=== PATIENT | female | born 1945 | race Caucasian/White ===

== ENCOUNTER → 2017-09-08 14:17 | Outpatient (CLI) | payer MEDICARE, OTHER, SELFPAY ==
--- NOTE | 2017-09-08 14:28 | XR_ITS ---
XR KUB CLINICAL INDICATION: ITS.REASON: CONSTIPATION ORDERING PHYSICIAN: Radha Ferro PATIENT AGE: 71 years COMPARISON: None FINDINGS: Unremarkable bowel gas pattern. No evidence of rectal fecal impaction. Degenerative changes lumbar spine. No urolithiasis. IMPRESSION: No acute finding
== END ==
PROVIDERS: PCP Nurse Practitioner Family; Visit Provider Nurse Practitioner Family
DX: K59.01 Slow transit constipation (principal)
CPT/HCPCS: 74018

== ENCOUNTER → 2018-02-24 13:41 | Outpatient (CLI) | payer MEDICARE, OTHER, SELFPAY ==
--- NOTE | 2018-02-24 13:55 | XR_ITS ---
XR hip RT 2-3V w/pelvis HISTORY: ITS.REASON: JOANNE HIP PAIN ORDERING PHYSICIAN: Radha Ferro PATIENT AGE: 72 years COMPARISON: None FINDINGS: No fracture or dislocation is evident. No significant degenerative change. No lytic or blastic change. Unremarkable soft tissues IMPRESSION: Negative hip
--- NOTE | 2018-02-24 13:55 | XR_ITS ---
XR hip LT 2-3V w/pelvis HISTORY: ITS.REASON: JOANNE HIP PAIN ORDERING PHYSICIAN: Radha Ferro PATIENT AGE: 72 years COMPARISON: None FINDINGS: No fracture or dislocation is evident. No significant degenerative change. No lytic or blastic change. Unremarkable soft tissues IMPRESSION: Negative hip
--- NOTE | 2018-02-24 13:55 | XR_ITS ---
XR shoulder RT min 2V COMPARISON: None HISTORY: Shoulder pain TECHNIQUE: 3 views right shoulder FINDINGS: There is degenerative changes AC joint with spurring severely and inferiorly. The humeral head and glenoid appear normal. There are no soft tissue calcifications. IMPRESSION: Degenerative spurring of the AC joint which could possibly predispose to mild degree of impingement syndrome
== END ==
PROVIDERS: PCP Nurse Practitioner Family; Visit Provider Nurse Practitioner Family
DX: M25.551 Pain in right hip (principal); M25.552 Pain in left hip
CPT/HCPCS: 73030; 73502

== ENCOUNTER → 2018-07-10 15:49 | Outpatient (CLI) | payer MEDICARE, OTHER, SELFPAY ==
--- NOTE | 2018-07-10 16:12 | MM_ITS ---
MM Dig screening mamm BI w/CAD ORDERING PHYSICIAN : Radha Ferro PATIENT AGE: 72 years GENDER: Female COMPARISON: May 2015, June 2016, 2016. November 2011 & 2010 digital mammograms . Also film screen mammogram September 2009 &March 2009 INDICATION: ITS.REASON: SCREENING denies female hormones. No new complaints. Previous stereotactic biopsy left breast Noncontributory family history. TECHNIQUE: Standard CC and MLO images were obtained. R2 CAD reviewed. FINDINGS: . Moderate asymmetry is again noted with more evident on the bladder tissue left retroareolar region. Long-standing pattern. RIGHT BREAST:Right breast is unchanged. Old only minimal residual fibroglandular elements retroareolar region right. LEFT BREAST:We again see dense area of tissue at the retroareolar region on left, most pronounced superior lateral to the nipple. Actually very similar finding was seen back dating back to 2008. I believe today's technique, accentuates the density here slightly when compared to a recent years studies from 2017, 2016. With however suggest a follow-up study in 6 months to better confirm stability ovaries routine follow-up thereafter Others also metallic marker seen at site of percutaneous biopsy, at area of asymmetric fibroglandular tissue again noted at superior left breast 12:00. This area unchanged. IMPRESSION: 1. LEFT BREAST: asymmetric area of tissue in the superior retroareolar region again noted. -Density at this area slightly accentuated on today's study, believe is merely due to technique. However I would suggest a 6 month follow-up to better confirm stability of this area 2. RIGHT BREAST: Stable appearance. Follow-up in one year BI-RADS Category: 3 Probably Benign Finding Short Term Follow-up RECOMMENDED FOLLOW-UP: 6M 6 MONTH FOLLOW-UP (A letter has been sent to the patient regarding results of the study.)
== END ==
PROVIDERS: PCP Nurse Practitioner Family; Visit Provider Nurse Practitioner Family
DX: Z12.31 Encounter for screening mammogram for malignant neoplasm of breast (principal)
CPT/HCPCS: 77067

== ENCOUNTER → 2018-09-26 14:03 | Outpatient (CLI) | payer MEDICARE, OTHER, SELFPAY ==
--- NOTE | 2018-09-26 14:11 | XR_ITS ---
XR hip RT 2-3V w/pelvis HISTORY: ITS.REASON: RT HIP PAIN ORDERING PHYSICIAN: Radha Ferro PATIENT AGE: 72 years COMPARISON: None FINDINGS: No fracture or dislocation is evident. There are minimal osteoarthritic changes of the right hip. No lytic or blastic change. IMPRESSION: Minimal osteoarthritis, no acute finding
--- NOTE | 2018-09-26 14:11 | XR_ITS ---
EXAM: XR lumbar spine 2-3V HISTORY: Low back pain, right hip pain ITS.REASON: RT HIP PAIN ORDERING PHYSICIAN: Radha Ferro PATIENT AGE: 72 years COMPARISON: None FINDINGS: There is multilevel degenerative disc disease which is worse at L4-L5 and L5-S1 as well as multilevel bridging osteophytes prominent in the lower thoracic spine and from L2 to L5. No fracture or dislocation. No lytic or blastic change. IMPRESSION: Degenerative disc disease with osteophytosis
== END ==
PROVIDERS: PCP Nurse Practitioner Family; Visit Provider Nurse Practitioner Family
DX: M25.551 Pain in right hip (principal)
CPT/HCPCS: 72100; 73502

== ENCOUNTER → 2018-11-09 15:14 | Outpatient (CLI) | payer MEDICARE, OTHER, SELFPAY ==
--- NOTE | 2018-11-09 15:18 | XR_ITS ---
XR knee RT 4V, XR tibia fibula RT 2V History: Arthritis and pain at the right leg for one year Technique: Right knee 4 view: Weightbearing AP, lateral and Nazario views were performed as well as oblique. Right lower leg AP lateral view RIGHT KNEE Findings reflecting degenerative changes at the right knee most evident at the lateral compartment. Mild narrowing at the lateral compartment with minor sclerosis... Developing Marginal osteophytes most evident about the lateral compartment as well.. Medial compartment maintained. No joint effusion. Patellofemoral relationships appear satisfactory. Early sharpening and marginal endplate about margin of patella. IMPRESSION: : 1. Developing Degenerative changes a right knee most evident at lateral compartment. RIGHT LOWER LEG The right tibia and fibula appear intact. Bones well mineralized. No fracture nor lesion. 2 views of the ankle included in this study unremarkable. Right knee Knee is been previously discussed above. IMPRESSION. Negative right tibia and fibula
== END ==
PROVIDERS: PCP Nurse Practitioner Family; Visit Provider Orthopaedic Surgery
DX: M79.604 Pain in right leg (principal); M25.561 Pain in right knee
CPT/HCPCS: 73564; 73590

== ENCOUNTER 2018-11-30 09:00 | Outpatient (RCR) | payer MEDICARE, OTHER, SELFPAY | END 2018-11-30 09:15 | disposition home or self-care (01) | LOC: PT 09:00 | PROVIDERS: Visit Provider Nurse Practitioner Family | DX: M25.551 Pain in right hip (principal) | CPT/HCPCS: 97010; 97014; 97110; 97140; 97163; 97164; 97760; G0283 ==

== ENCOUNTER → 2018-12-04 09:20 | Outpatient (CLI) | payer MEDICARE, OTHER, SELFPAY ==
--- NOTE | 2018-12-04 09:25 | MR_ITS ---
MR knee RT wo con HISTORY: Right knee pain ITS.REASON: RIGHT KNEE PAIN ORDERING PHYSICIAN: Radha Ferro APRN PATIENT AGE: 73 years Comparison: 11/09/2018 TECHNIQUE: Standard multiplanar multiecho sequences are performed without contrast. FINDINGS: The cruciate ligaments, collateral ligaments, patellar tendon, and quadriceps tendon are intact. Medial meniscus has an unremarkable appearance. The anterior horn of the lateral meniscus is not well delineated. There is increased T2 signal involving the posterior horn of the lateral meniscus which does appear to extend to the tibial surface on at least one view and could be due to a small meniscal tear. There is diffuse increased T2 signal involving the anterior horn lateral meniscus anteriorly and laterally with ill-definition. There is associated subcutaneous edema about the knee greater along the anterior and lateral aspect of the knee.. Increased T2 signal is also present deep to the distal aspect of the iliotibial tract and the lateral patellar retinaculum. There is some thinning of the patellar cartilage. There are mild tricompartmental osteoarthritic changes. No bone marrow edema is apparent. There is a small knee joint effusion and a small Ventura cyst. IMPRESSION: 1. Abnormal appearance of the anterior horn of the lateral meniscus which is ill-defined with increased T2 signal and could represent complex tear or maceration. Nondisplaced horizontal tear involves the posterior horn of the lateral meniscus. 2. Diffuse subcutaneous edema of the knee which is greater along the anterior lateral aspect also with some edema deep to the iliotibial tract and lateral patellar retinaculum. These findings are nonspecific and could be related to posttraumatic change, inflammation, or even infection/cellulitis. Correlation with clinical findings needed. 3. Mild tricompartmental osteoarthritis with knee joint effusion
== END ==
PROVIDERS: PCP Nurse Practitioner Family; Visit Provider Nurse Practitioner Family
DX: M25.561 Pain in right knee (principal)
CPT/HCPCS: 73721

== ENCOUNTER → 2018-12-05 10:52 | Outpatient (POV) | payer MEDICARE, OTHER, SELFPAY ==
[2018-12-05 11:04] VITALS: BP 117/62; PULSE 77; RESP 18; O2SAT 98
--- NOTE | 2018-12-18 08:30 | HMH.PMCON ---
Assessment and Plan (1) Left knee pain Status: Chronic Category: Medical Code(s): M25.562 - Pain in left knee (2) Knee osteoarthritis Status: Chronic Category: Medical Code(s): M17.10 - Unilateral primary osteoarthritis, unspecified knee - Assessment and plan all Dx Assessment and Plan for all problems:: We will schedule her for an intra-articular knee injection. I will follow-up with the patient after injection reassess her symptoms at that time. Dr. Montoya has reviewed this note and agrees with this plan of care. This note was dictated using voice recognition software and may contain errors or omissions HPI - Data of Consult Consult date: 12/05/18 Requesting Physician: Rabia Yuen APRN Primary Care Provider: Radha Ferro APRN - Consult Narrative Reason for consult: Knee pain History of present illness: Ms. Emery is a 73 year old female who presents today to discuss her left knee pain. Patient has been seen by orthopedics for it. Patient states she has had injections in the past with good relief. Patient is interested in repeating this. Patient and I had a discussion about additional imaging of the knee of her injection does not give her any relief. She rates her pain a 5 out of 10. She states it is difficult walking. She states that her pain is an aching type. CC: Rabia Yuen APRN [facility] History I have reviewed the patient's past medical history: Yes Medical History: Reports:: Anxiety, Hypertension Denies:: Seizures *Have you ever received a pneumonia vaccine?: No Other Medical History: Reports: Thyroid Disease Other Surgeries: Yes: No Previous Surgery, Sinus Surgery - *Social History Smoking Status: Never smoker Alcohol Intake: never *Occupational Status:: retired Housing: house *Travel in the last 8 weeks: None - Psychiatric History Expresses thoughts of harming self/others: None Suicide Plan Description: No Plan Pschychiatric History:: Reports:: Anxiety Family Hx:: Unable to obtain Review of Systems - Review of Systems ROS General: no recent weight change, no fever, no sleep disturbances Respiratory: no cough, no shortness of air, no recurring pulmonary infections Cardiovascular/Peripheral Vascular: No chest pain, No palpitations, no edema, no shortness of breath. Gastrointestinal: no incontinence, normal bowel movements reported Genitourinary: no incontinence Musculoskeletal: Left knee pain Psychiatric: normal mood/ affect Neurological: [denies weakness in extremities], [denies balance issues] Meds Home Medications Medication Instructions Recorded Confirmed Type clonazepam 0.5 mg tablet 0.5 mg PO BID 11/09/18 12/15/18 History gemfibrozil 600 mg tablet 600 mg PO BID 11/09/18 12/15/18 History glimepiride 2 mg tablet 2 mg PO DAILY 11/09/18 12/15/18 History lamotrigine 150 mg tablet 150 mg PO DAILY 11/09/18 12/15/18 History levothyroxine 75 mcg tablet 75 mcg PO DAILY 11/09/18 12/15/18 History metoprolol tartrate 100 mg tablet 100 mg PO BID 11/09/18 12/15/18 History potassium 99 mg tablet 99 mg PO DAILY 11/09/18 12/15/18 History venlafaxine ER 150 mg 150 mg PO DAILY 11/09/18 12/15/18 History tablet,extended release 24 hr vit C 50 mg-E 15 unit-zinc cit 4.5 2 tab PO DAILY 11/09/18 12/15/18 History mg-lutein 2.5 mg-zeaxan chew tablet Allergies Allergy/AdvReac Type Severity Reaction Status Date / Time hydromorphone [From Dilaudid] Allergy Severe DIAPHORETIC, Verified 12/15/18 11:32 NAUSEA, FEELS LIKE SHE COULD PASS OUT. azithromycin AdvReac Intermediate DEPRESSION Verified 12/15/18 11:32 Objective Vital signs: Pulse Resp BP Pulse Ox 77 18 117/62 98 12/05/18 11:04 12/05/18 11:04 12/05/18 11:04 12/05/18 11:04 Narrative: Physical Exam General: Alert and oriented x3, no acute distress, pleasant and cooperative, [on room air] Lungs: Resps E/U, Symmetrical chest expansion, Eyes: PER
== END ==
PROVIDERS: PCP Nurse Practitioner Family; Visit Provider Clinical Nurse Specialist Family Health
DX: M25.562 Pain in left knee (principal); M17.10 Unilateral primary osteoarthritis, unspecified knee
CPT/HCPCS: 99202

== ENCOUNTER → 2018-12-22 07:50 | Outpatient (CLI) | payer MEDICARE, OTHER, SELFPAY ==
--- NOTE | 2018-12-22 08:02 | MR_ITS ---
MR knee LT wo con HISTORY: Anterior left knee pain ITS.REASON: KNEE PAIN ORDERING PHYSICIAN: Rabia Yuen APRN PATIENT AGE: 73 years Comparison: None TECHNIQUE: Standard multiplanar multiecho sequences are performed without contrast. FINDINGS: The cruciate ligaments, collateral ligaments, and patellar tendon have an unremarkable appearance. There is an accessory center of ossification along superior aspect of the patella with some increase in the T2 signal at the insertion of the quadriceps tendon. No meniscal tear is evident. There is some minimal thinning of the patellar cartilage with some irregularity of the patellar cartilage posteriorly. The medial and lateral joint spaces are well-preserved with no significant degenerative change. There are minimal osteoarthritic changes of the patellofemoral joint Small amount fluid is present in the knee joint. No bone marrow edema pattern. IMPRESSION: 1. No evidence of internal derangement 2. Minimal osteoarthritic changes of the patellofemoral joint with minimal irregularity posterior patellar cartilage which may be seen with osteoarthritis or mild chondromalacia 3. Bipartite patella with some increased T2 signal involving the distal aspect of the quadriceps tendon which may be due to tendinopathy or tendinosis or partial tear of the tendon
== END ==
PROVIDERS: PCP Nurse Practitioner Family; Visit Provider Clinical Nurse Specialist Family Health
DX: M25.562 Pain in left knee (principal)
CPT/HCPCS: 73721

== ENCOUNTER → 2019-01-04 08:42 | Outpatient (CLI) | payer MEDICARE, OTHER, SELFPAY ==
--- NOTE | 2019-01-04 08:48 | XR_ITS ---
XR knee LT 4V HISTORY: ITS.REASON: 4 views weightbearing ORDERING PHYSICIAN: Sloan Muhammad MD PATIENT AGE: 73 years COMPARISON: None FINDINGS: No fracture or dislocation. No lytic or blastic change. Normal mineralization. No significant arthritic changes evident. Prominent enthesophyte is present at the superior aspect of the patella IMPRESSION: Unremarkable, no acute finding
== END ==
PROVIDERS: PCP Nurse Practitioner Family; Visit Provider Orthopaedic Surgery
DX: M25.562 Pain in left knee (principal)
CPT/HCPCS: 73564

== ENCOUNTER → 2019-01-31 13:32 | Outpatient (CLI) | payer MEDICARE, OTHER, SELFPAY ==
--- NOTE | 2019-01-31 13:35 | MM_ITS ---
MM Dig mamm DX unilat LT CAD COMPARISON: Digital mammograms with CAD 07/10/2018 INDICATION: 6 month follow-up for evaluation of interval stability asymmetric glandular tissue left breast TECHNIQUE: Standard MLO and CC views were obtained FINDINGS: Moderately dense asymmetric glandular tissue in the subareolar region stable and unchanged from the previous exam and possibly appearing somewhat less dense than the prior exam. Again is a surgical clip just deep to the asymmetric glandular tissue. There are no suspicious findings seen and there are no suspicious microcalcifications. IMPRESSION: Stable asymmetric glandular tissue recommend the patient return to annual screening mammography BI-RADS Category: 2 Benign Finding(s) RECOMMENDED FOLLOW-UP: 6M - 6 MONTH FOLLOW-UP to return to normal annual screening schedule (A letter has been sent to the patient regarding results of the study.)
== END ==
PROVIDERS: PCP Nurse Practitioner Family; Visit Provider Nurse Practitioner Family
DX: N63.42 Unspecified lump in left breast, subareolar (principal)
CPT/HCPCS: 77065

== ENCOUNTER → 2019-07-23 14:45 | Outpatient (CLI) | payer MEDICARE, OTHER, SELFPAY ==
--- NOTE | 2019-07-23 14:48 | MM_ITS ---
PROCEDURE: MM DIG SCREENING MAMM BI W/CAD CLINICAL INDICATION: 6 MOS FU TO RESUME ANNUAL SCHEDULE There is no personal or family history of breast cancer and no current complaints. This is a six-month follow-up exam to resume annual screening. There been a previous biopsy left breast for benign disease. COMPARISON: [facility] DIG MAMM-SCREEN JOANNE W/CAD from 06/16/2017 [facility] MM Dig screening mamm BI w/CAD from 07/10/2018 DIG MAMM-DX UNI-LT from 01/31/2019 TECHNIQUE: Standard CC and MLO images were obtained. R2 CAD reviewed. FINDINGS: The breasts are composed primarily of fat. Again noted is the asymmetric density subareolar region left breast basically stable unchanged from previous exams. The biopsy clip is seen just superior to this asymmetric density. Similar but less prominent glandular elements are seen in the subareolar region right breast. There is no new or suspicious lesion in either breast and no suspicious microcalcifications. IMPRESSION: Stable exam with no suspicious lesions seen BI-RAD Category: 2 Benign Finding(s) FOLLOW-UP: 1YR 1 Year Follow-up (A letter has been sent to the patient regarding results of the study.) Dictated by: Dr. Aj Lynne MD 07/25/2019 20:[address] Aj Lynne MD in [place] 07/25/2019 20:13
== END ==
PROVIDERS: PCP Nurse Practitioner Family; Visit Provider Nurse Practitioner Family
DX: Z12.31 Encounter for screening mammogram for malignant neoplasm of breast (principal)
CPT/HCPCS: 77067

== ENCOUNTER → 2019-07-30 13:33 | Outpatient (CLI) | payer MEDICARE, OTHER, SELFPAY ==
--- NOTE | 2019-07-30 13:51 | XR_ITS ---
PROCEDURE: XR CHEST 2V CLINICAL HISTORY: COUGH COMPARISON: CXR2 CHEST-AP VIEW ONLY from 12/10/2014 FINDINGS: The cardiomediastinal silhouette and pulmonary vascularity are within normal limits. The lungs are clear without infiltrates, suspicious nodules, or pleural effusions. No acute bony abnormalities. IMPRESSION: No acute findings. Dictated by: Neil Morin 07/30/2019 15:05 Electronically signed by Neil Morin in [place] 07/30/2019 15:05
[2019-07-30 14:19] LABS: Basophils # 0.1 K/mm3 (0-0.2); Basophils % 0.4 % (0.1-2.0); Eosinophils # 0.2 K/mm3 (0.0-0.4); Eosinophils % 2.2 % (0.1-12.0); Hematocrit 41.1 % (37.0-47.0); Hemoglobin 12.8 g/dL (12.2-16.2); Lymphocytes # 1.8 K/mm3 (0.7-4.5); Lymphocytes % 17.5 % (10-50); Mean Corpuscular HGB Conc 31.1 g/dL (31.8-35.4); Mean Corpuscular Hemoglobin 26.6 pg (27.0-31.2); Mean Corpuscular Volume 85.5 fl (81-99); Mean Platelet Volume 8.9 fl (7.4-10.4); Monocytes # 0.5 K/mm3 (0.1-1.0); Monocytes % 4.7 % (1.7-9.3); Neutrophils # 7.9 K/mm3 (1.8-7.8); Neutrophils % 75.2 % (37.0-80.0); Platelet Count 400 K/mm3 (142-424); Red Cell Distribution Width 14.2 % (11.5-17.5); White Blood Count 10.5 K/mm3 (4.8-10.8)
[2019-07-30 16:25] LABS: Alanine Aminotransferase 17 U/L (12-78); Albumin Level 3.9 gm/dL (3.4-5.0); Alkaline Phosphatase 156 U/L (46-116); Anion Gap 16.8 mEq/L (5-15); Aspartate Amino Transferase 16 U/L (15-37); Bilirubin,Total 0.6 mg/dL (0.2-1.0); Blood Urea Nitrogen 30 mg/dL (7-18); Calcium 9.3 mg/dL (8.5-10.1); Carbon Dioxide 25 mmol/L (21.0-32.0); Chloride 105 mmol/L (98-107); Creatinine,Serum 0.69 mg/dL (0.55-1.02); Estimated Glomerular Filt Rate 83 ml/min (>60); GFR (African American) 101 ML/MIN (>60); Globulin 3.8 gm/dl (1.3-3.2); Glucose 143 mg/dL (74-106); Potassium 3.8 mmoL/L (3.5-5.1); Sodium 143 mmol/L (136-145); Total Protein,Serum 7.7 gm/dL (6.4-8.2)
== END ==
PROVIDERS: PCP Nurse Practitioner Family; Visit Provider Nurse Practitioner Family
DX: R53.83 Other fatigue (principal); E03.9 Hypothyroidism, unspecified; J01.40 Acute pansinusitis, unspecified; R05 Cough
CPT/HCPCS: 36415; 71046; 80053; 84443; 85025

== ENCOUNTER → 2019-08-06 12:51 | Outpatient (CLI) | payer MEDICARE, OTHER, SELFPAY ==
--- NOTE | 2019-08-06 12:52 | US_ITS ---
APPROVED REPORT Exam Type: Lower Extremity Segmental Pressures Care Process Manager: Kira Gill RVT Indications Claudication: Bilaterally Risk Factors Hypertension Hyperlipidemia Diabetes Pressures/Indices Right Indices Left Indices Brachial 134.00 mmHg Brachial 135.00 mmHg Low Thigh 133.00 mmHg 0.99 Low Thigh 133.00 mmHg 0.99 Calf 141.00 mmHg 1.04 Calf 153.00 mmHg 1.13 Ankle(PT) 148.00 mmHg 1.10 Ankle(PT) 150.00 mmHg 1.11 Ankle(DP) 143.00 mmHg 1.06 Ankle(DP) 154.00 mmHg 1.14 Digit 30.00 mmHg 0.22 Digit 39.00 mmHg 0.29 Findings RT ERI:1.10 LT ERI:1.14 RT TBI:0.22 LT TBI:0.29 NORMAL PULSES BILATERAL NORMAL WAVEFROMS BILATERAL Conclusion Low bilateral TBI suggesting small vessel disease Electronically signed by : Nirav Mann MD 08/09/2019 16:00:21
--- NOTE | 2019-08-06 13:45 | CT_ITS ---
PROCEDURE: CT SINUS WO CON CLINICAL HISTORY: ACUTE PANSINUSITIS COMPARISON: SINUS CT SINUS (MAX-FACIAL W/O CONT) from 04/03/2016 TECHNIQUE: Axial images obtained with sagittal and coronal reformats. All CT scans at the facility use one or more dose reduction, viz: automated exposure control, ma/kV adjustment per patient size (including targeted exams where dose is matched to indication, i.e. head), or iterative reconstruction technique. FINDINGS: The paranasal sinuses are clear. There is a lalit bullosa right middle turbinate. The OM U is patent bilaterally. The nasal septum is in the midline. IMPRESSION: Stable small lalit bullosa right middle turbinate, no findings of acute or chronic sinusitis Dictated by: Dr. Aj Lynne MD 08/06/2019 14:[address] Aj Lynne MD in [place] 08/06/2019 14:37
== END ==
PROVIDERS: PCP Nurse Practitioner Family; Visit Provider Podiatrist
DX: R09.89 Other specified symptoms and signs involving the circulatory and respiratory systems (principal); J01.40 Acute pansinusitis, unspecified; R05 Cough
CPT/HCPCS: 70486; 93923

== ENCOUNTER → 2019-08-28 07:21 | Outpatient (CLI) | payer MEDICARE, OTHER, SELFPAY ==
--- NOTE | 2019-08-28 | CA_ITS ---
APPROVED REPORT Exam: Pharmacologic Technologist: Mary Dudley Ht: 5 ft 4 in Wt: 160 lbs BSA: 1.78 m2 HR: 64 bpm BP: 149/59 mmHg Indications: Chest pain, Shortness of Air Medical History Medications: Omeprazole,,,,, Levothyroxine,,,,, Aspirin,,,,, Metoprolol,,,,, Vitamin C,,,,, Glimepiride,,,,, Buspirone,,,,, Gemfibrozil,,,,, Venlafaxine,,,,, Lomotrigine,,,,, Stress Test Details Test: LEXISCAN HR Resting HR: 69 bpm Max Heart Rate (APMHR): 147 bpm Max HR Achieved: 88 bpm Target HR (85% APMHR): 124 bpm % of APMHR: 59 Recovery HR: 75 bpm BP Resting BP: 149.0/59.0 mmHg Max BP: 152.0/79.0 mmHg Recovery BP: 140.0/69.0 mmHg ECG Clinical Exercise duration: 04:01 min Highest Stage Achieved: Stress ECG Conclusion Resting ECG: Sinus rhythm. Lexiscan portion completed. Patient complained of nausea at peak infusion. Resolved in recovery. Symptoms: Nausea at peak infusion. Resolved in recovery. No chest pain. No shortness of breath. Arrhythmias/Ectopy: Occasional PVC ST-T Changes: Less than 1.[address] depression. Conclusion: Images to follow. Electronically signed by : Dejuan Granados, 08/29/2019 06:31:35
--- NOTE | 2019-08-28 07:22 | CA_ITS ---
APPROVED REPORT EXAM: Comprehensive 2D, Doppler, and color-flow Echocardiogram Emergency Worker: Eleanor Welch RDCS Ht: 5 ft 5 in Wt: 162lbs BSA: 1.81 BP: 140/75 mmHg Indications: Chest Pain, Shortness of Breath, Diabetes, Obesity, Hypertension/HDD 2D Dimensions LVOT 1.70 cm (M/F) 1.5-2.5 M-Mode Dimensions RVDd 1.59 cm (0.9-2.6) LVDd 5.39 cm (3.5-5.7) LVDs 3.83 cm (3.5-5.7) IVSd 0.68 cm (0.6-1.1) PWd 0.68 cm (0.6-1.1) EF (Teich) 55.20% FS 28.90% EDV (Teich) 140.70 mL ESV (Teich) 63.10 mL LV Diastology E/A Ratio 0.79 Mitral Valve MV A Velocity 87.00 (40-130 cm/s) Left Ventricle Left atrium is mildly enlarged, left ventricle is normal size, mild concentric left ventricular hypertrophy, visually estimated ejection fraction 55% with no regional wall motion abnormality, grade 1 diastolic dysfunction seen with tissue Doppler evidence of raise left atrial pressure. Right Ventricle Right atrium and right ventricular mildly enlarged with normal contractility. Aortic Valve Aortic valve is minimally thickened and fibrosed, there is no aortic stenosis or aortic insufficiency. Mitral Valve Mitral valve is grossly normal, there is mild mitral regurgitation. Tricuspid Valve Tricuspid valve is grossly normal, there is mild tricuspid regurgitation. Pulmonic Valve Pulmonic valve is poorly visualized. Great Vessels Aortic root is normal size. Pericardium No significant pericardial effusion noted. Conclusion 1. Mildly enlarged left atrium, normal left ventricular size, mild concentric left ventricular hypertrophy, visually estimated ejection fraction 55% with no regional wall motion abnormality, grade 1 diastolic dysfunction seen without tissue Doppler evidence of raise left atrial pressure. 2. Mild mitral and tricuspid regurgitation. 3. No significant pericardial effusion noted. Electronically signed by : Djeuan Granados, 08/29/2019 07:02:04
--- NOTE | 2019-08-28 07:24 | NM_ITS ---
APPROVED REPORT Exam: Nuclear Stress Test Indication: Chest pain, SOB, Palpitations, HTN, DM, High cholesterol Patient Location: Outpatient Stress Tech: Mary Dudley IN Tech:Anushka Almendarez, ARRT, RT (R)(N) Ht: 5 ft 4 in Wt: 160 lbs Bra Size: 36B HR: 64 bpm BP: 149/59 mmHg BSA: 1.78 m2 BMI: 27.4 History: Chest pain, SOB, Palpitations, HTN, DM, High cholesterol Procedure: Patient received a 0.4 mg of intravenous Lexiscan, resting heart rate 64 bpm, resting blood pressure 149/59 mmHg, with Lexiscan maximum heart rate achived was 86 bpm which is Less than 85 % of the maximum predicted heart rate and blood pressure was 121/65 mmHg. With Lexiscan, patient denied any complaint of chest pain. Electrocardiogram Resting electrocardiogram showed sinus rhythm, with Lexiscan there is less than 1.[address] segment depression noted from the baseline EKG. The EKG portion of the Lexiscan Myoview is nondiagnostic. Cardiac Stress and Resting SPECT Images: Cardiac Stress and Resting SPECT images were obtained using technetium 99m Myoview 30.7 mCi stress and 10.28 mCi at rest. Gated SPECT with analysis of segmental wall motion and calculation of the ejection fraction also done. Cardiac stress and resting SPECT images show small area of reversible ischemia involving the apex and anterolateral wall, computer derived ejection fraction is over 65% with no regional wall motion abnormality, right ventricle is normal size and contractility. Conclusion: 1. The EKG portion of the Lexiscan Myoview is nondiagnostic. 2. Scintigraphic evidence of small area reversible ischemia involving the apex and anterolateral wall, computer derived ejection fraction is over 65% with no regional wall motion abnormality, right ventricle is normal size and contractility. 3. Abnormal Lexiscan Myoview study. Electronically signed by : Dejuan Granados, 08/29/2019 06:33:46
--- NOTE | 2019-08-28 07:37 | HMH.ITSHM ---
Current Home Medications as stated by this patient Maryuri Emery or physician relations representative. []VITAMIN C VENLAFAXINE OMEPRAZOLE METOPROLOL LEVOTHYROXINE LAMOTRIGINE GLIMEPIRIDE GEMFIBROZIL BUSPIRONE ASA
== END ==
PROVIDERS: PCP Nurse Practitioner Family; Visit Provider Urology
DX: E11.9 Type 2 diabetes mellitus without complications (principal); I10 Essential (primary) hypertension; R06.00 Dyspnea, unspecified; R07.9 Chest pain, unspecified; R42 Dizziness and giddiness; Z79.84 Long term (current) use of oral hypoglycemic drugs
CPT/HCPCS: 78452; 93017; 93306; A9502; J2785

== ENCOUNTER → 2019-10-02 15:11 | Outpatient (CLI) | payer MEDICARE, OTHER, SELFPAY ==
[2019-10-02 17:03] LABS: Anion Gap 15.2 mEq/L (5-15); Blood Urea Nitrogen 22 mg/dl (7-17); Calcium 9.6 mg/dl (8.4-10.2); Carbon Dioxide 24 mmol/L (22.0-30.0); Chloride 105 mmol/L (98-107); Estimated Glomerular Filt Rate 98 ml/min (>60); GFR (African American) 119 ML/MIN (>60); Glucose 130 mg/dl (74-100); Potassium 4.2 mmoL/L (3.5-5.1); Sodium 140 mmol/L (136-145)
[2019-10-02 17:11] LABS: NT Pro Brain Natriuretic Pep. 74.7 pg/mL (0-125)
== END ==
PROVIDERS: Visit Provider Physician Assistant
DX: I11.9 Hypertensive heart disease without heart failure (principal); I25.10 Atherosclerotic heart disease of native coronary artery without angina pectoris; R00.2 Palpitations; R06.00 Dyspnea, unspecified; R94.30 Abnormal result of cardiovascular function study, unspecified
CPT/HCPCS: 36415; 80048; 83880

== ENCOUNTER → 2020-01-30 13:13 | Outpatient (CLI) | payer MEDICARE, OTHER, SELFPAY ==
--- NOTE | 2020-01-30 13:27 | XR_ITS ---
PROCEDURE: XR HAND LT MIN 3V CLINICAL INDICATION: left hand pain COMPARISON: No exams were available for comparison FINDINGS: Degenerative narrowing of the radiocarpal joint, 1st metacarpal carpal joints, and DIP joints of the 2nd through 5th digits are noted. There is no fracture or dislocation and the soft tissues are intact. IMPRESSION: No fracture, degenerative changes as above Dictated by: Corey Lua 01/30/2020 14:10 Electronically signed by Corey Lua in [place] 01/30/2020 14:10
--- NOTE | 2020-01-30 13:27 | XR_ITS ---
PROCEDURE: XR HAND RT MIN 3V CLINICAL INDICATION: right hand pain COMPARISON: XR HAND LT MIN 3V from 01/30/2020 FINDINGS: There is no fracture or dislocation. There is mild degenerative narrowing of the radiocarpal joint and DIP joints of the 2nd and 5th digits. Soft tissues are unremarkable IMPRESSION: Degenerative changes as above Dictated by: Corey Lua 01/30/2020 14:11 Electronically signed by Corey Lua in [place] 01/30/2020 14:11
== END ==
PROVIDERS: PCP Nurse Practitioner Family; Visit Provider Orthopaedic Surgery
DX: M79.642 Pain in left hand (principal); M79.641 Pain in right hand
CPT/HCPCS: 73130

== ENCOUNTER 2020-01-30 14:54 | Outpatient (RCR) | payer MEDICARE, OTHER, SELFPAY | END 2020-01-30 15:13 | disposition home or self-care (01) | LOC: OT 14:54 | PROVIDERS: Visit Provider Orthopaedic Surgery | DX: G56.03 Carpal tunnel syndrome, bilateral upper limbs (principal) | CPT/HCPCS: 97763 ==

== ENCOUNTER 2020-02-07 14:00 | Outpatient (RCR) | payer MEDICARE, OTHER, SELFPAY | END 2020-02-07 14:05 | disposition home health service (06) | LOC: PT 14:00 | PROVIDERS: PCP Nurse Practitioner Family; Visit Provider Nurse Practitioner Family | DX: M54.10 Radiculopathy, site unspecified (principal) | CPT/HCPCS: 97010; 97014; 97035; 97110; 97140; 97163; G0283 ==

== ENCOUNTER → 2020-02-07 15:10 | Outpatient (CLI) | payer MEDICARE, OTHER, SELFPAY ==
--- NOTE | 2020-02-07 | XR_ITS ---
PROCEDURE: XR SACRUM COCCYX MIN 2V CLINICAL INDICATION: Posttraumatic pain COMPARISON: ABDPELW CT ABD PELVIS W/ CONTRAST from 05/07/2016 FINDINGS: There is some minimal angulation involving the upper coccyx. This was present on a older CT scan of 05/07/2016 consistent with an older injury. The SI joints have an unremarkable appearance. Severe degenerative disc disease is present at L4-5 and L5-S1 IMPRESSION: Degenerative changes, no acute fracture Dictated by: Nirav Mann MD 02/07/2020 15:35 Electronically signed by Nirav Mann MD in [place] 02/07/2020 15:35
== END ==
PROVIDERS: PCP Nurse Practitioner Family; Visit Provider Nurse Practitioner Family
DX: M53.3 Sacrococcygeal disorders, not elsewhere classified (principal)
CPT/HCPCS: 72220

== ENCOUNTER → 2020-05-14 15:58 | Outpatient (CLI) | payer MEDICARE, OTHER, SELFPAY ==
--- NOTE | 2020-05-14 16:07 | XR_ITS ---
PROCEDURE: XR CHEST 2V CLINICAL HISTORY: HX OF HIGH BLOOD PRESSURE, PREOPERATIVE COMPARISON: CR CXR2 CHEST-AP VIEW ONLY from 12/10/2014 DX XR CHEST 2V from 07/30/2019 FINDINGS: The cardiomediastinal silhouette and pulmonary vascularity are within normal limits. There is a nodular opacity overlying the lower lung zones and may be due to nipple shadows. The remaining lungs are clear. There are degenerative changes in the thoracic spine IMPRESSION: Probable nipple shadows otherwise negative, no acute finding Dictated by: Nirav Mann MD 05/14/2020 16:29 Nirav Mann MD in [place] 05/14/2020 16:29
--- NOTE | 2020-05-14 16:28 | ECG_ITS ---
APPROVED REPORT Exam: Resting ECG HR:74 bpm ECG Measurements Heart Rate 74 AXES DE 172 P 37 QRSd 72 QRS -1 QT 380 T 25 QTc 421 Conclusion Normal sinus rhythm Low voltage QRS Borderline ECG Electronically signed by : Dejon Hollingsworth, 05/16/2020 13:52:03
[2020-05-14 16:29] LABS: Basophils # 0.1 K/mm3 (0-0.2); Basophils % 0.7 % (0.1-2.0); Eosinophils # 0.2 K/mm3 (0.0-0.4); Eosinophils % 2.6 % (0.1-12.0); Hematocrit 41.9 % (37.0-47.0); Hemoglobin 12.5 g/dL (12.2-16.2); Lymphocytes # 1.3 K/mm3 (0.7-4.5); Lymphocytes % 18.1 % (10-50); Mean Corpuscular HGB Conc 29.8 g/dL (31.8-35.4); Mean Corpuscular Hemoglobin 24.9 pg (27.0-31.2); Mean Corpuscular Volume 83.7 fl (81-99); Mean Platelet Volume 7.2 fl (7.4-10.4); Monocytes # 0.4 K/mm3 (0.1-1.0); Monocytes % 4.8 % (1.7-9.3); Neutrophils # 5.4 K/mm3 (1.8-7.8); Neutrophils % 73.7 % (37.0-80.0); Platelet Count 305 K/mm3 (142-424); Red Blood Count 5.01 M/mm3 (4.20-5.40); White Blood Count 7.4 K/mm3 (4.8-10.8)
[2020-05-14 17:13] LABS: Chloride 104 mmol/L (98-107); Sodium 141 mmol/L (136-145)
[2020-05-14 17:14] LABS: Potassium 4.5 mmoL/L (3.5-5.1)
[2020-05-14 17:16] LABS: Alanine Aminotransferase 14 U/L (12-78); Alkaline Phosphatase 93 U/L (38-126); Aspartate Amino Transferase 22 U/L (14-36); Bilirubin,Total 0.4 mg/dl (0.2-1.3); Blood Urea Nitrogen 17 mg/dl (7-17); Estimated Glomerular Filt Rate 98 ml/min (>60); GFR (African American) 118 ML/MIN (>60)
[2020-05-14 17:17] LABS: Albumin Level 4.3 g/dl (3.5-5.0); Albumin/Globulin Ratio 1.4 (1.1-1.8); Anion Gap 16.5 mEq/L (5-15); Calcium 9.6 mg/dl (8.4-10.2); Carbon Dioxide 25 mmol/L (22.0-30.0); Glucose 140 mg/dl (74-100); Total Protein,Serum 7.3 g/dl (6.3-8.2)
[2020-05-14 17:29] LABS: Coronavirus 19 IgG Antibody Negative (Negative); Coronavirus 19 IgM Antibody Negative (Negative)
[2020-05-14 18:01] LABS: Hemoglobin A1C 6.8 % (4.0-6.0)
== END ==
PROVIDERS: Visit Provider Orthopaedic Surgery
DX: G56.01 Carpal tunnel syndrome, right upper limb; E11.9 Type 2 diabetes mellitus without complications; Z01.818 Encounter for other preprocedural examination
CPT/HCPCS: 36415; 71046; 80053; 83036; 85025; 86328; 93005

== ENCOUNTER 2020-05-16 07:10 | Emergency (ER) | payer MEDICARE, OTHER, SELFPAY ==
[2020-05-16 07:18] VITALS: BP 107/56; PULSE 81; RESP 17; TEMP 36.8; O2SAT 97; BMI 27.4
--- NOTE | 2020-05-16 07:26 | PC.NURSE ---
dr becker consulting with dr holt concerning plan of care.
--- NOTE | 2020-05-16 07:30 | HMH.EDGENADL ---
ED Disposition Clinical Impression: CTS (carpal tunnel syndrome) Qualifiers: Laterality: right Qualified Code(s): G56.01 - Carpal tunnel syndrome, right upper limb Disposition: Home, Self-Care Condition on Discharge: Good Instructions: DI for Acute Pain -- Adult Additional Instructions: keep surg appt today Referrals: Jojo Wilde [Primary Care Provider] - - Critical Care Critical Care Time: No Attestation: On 05/16/20, the high probability of a clinically significant, sudden or life threatening deterioration of the following system(s) required my full and direct attention, intervention and personal management. The time I documented below is in addition to time spent performing reported procedures but includes the following listed in this critical care notation. Medical Decision Making - Medical Records Medical records reviewed: Yes: I reviewed the patient's medical records. - Celio Inquiry Pt receiving controlled substance: No Vital Signs: 05/16/20 07:18 Temperature 98.2 F Temperature Source Oral Pulse Rate [Right Radial] 81 Respiratory Rate 17 Blood Pressure [Right Arm] 107/56 L Blood Pressure Mean [Right Arm] 73 02 Sat by Pulse Oximetry 97 Oxygen Delivery Method Room Air Orders (Tests/Meds): ED MEDICATIONS Discontinued Medications Generic Name Dose Route Start Last Admin Trade Name Freq PRN Reason Stop Dose Admin Ketorolac Tromethamine 60 mg 05/16/20 07:27 Ketorolac 30mg/Ml Vial IM 05/16/20 07:28 ONCE ONE - Physician Consults Physician Consulted: key Reason -: Pt condition General Adult HPI - General Chief complaint: PAIN Stated complaint: R hand pain Time Seen by Provider: 05/16/20 07:30 Mode of Arrival: Ambulatory Source of Information: Patient, Relative, Medical Record Limitations: No Limitations Description of Symptoms (Recalled from ER Triage Doc. by RN): pt reports to ed with c/o right hand pain. pt states that she is scheduled to have surgery on her carpal tunnel today at [address] holt. pt states she can not stand the pain. - History of Present Illness HPI narrative: acute excerbation of rt hand pain this am - she is to have surg today for cts - Onset (ago): day(s) Location: upper extremity Severity: moderate Associated symptoms: denies other symptoms - Related Data Home Medications Medication Instructions Recorded Confirmed glimepiride 2 mg tablet 2 mg PO DAILY 11/09/18 05/14/20 levothyroxine 75 mcg tablet 75 mcg PO DAILY 11/09/18 05/14/20 vit C 50 mg-E 15 unit-zinc cit 4.5 2 tab PO DAILY 11/09/18 05/14/20 mg-lutein 2.5 mg-zeaxan chew tablet aspirin 81 mg tablet,delayed 81 mg PO DAILY 08/21/19 05/14/20 release omeprazole 20 mg capsule,delayed 20 mg PO DAILY cap 08/21/19 05/14/20 release multivitamin 1 tab PO DAILY 10/04/19 05/14/20 pravastatin 20 mg tablet 20 mg PO QHS 10/04/19 05/14/20 furosemide 40 mg tablet 40 mg PO .three times weekly PRN 12/26/19 05/14/20 tab spironolactone 50 mg tablet 50 mg PO .three times weekly PRN 12/26/19 05/14/20 tab fluoxetine 20 mg capsule 20 mg PO DAILY 01/30/20 05/14/20 Buspirone HCl [Buspar 10mg 10 mg PO BID 03/11/20 05/14/20 tablet] bisoproloL fumarate [Bisoprolol 5 mg PO DAILY 03/11/20 05/14/20 Fumarate] Previous Rx's Medication Instructions Recorded lamotrigine 150 mg tablet 150 mg PO DAILY #30 tab 08/07/19 venlafaxine 150 mg tablet,extended 150 mg PO DAILY #30 tab 08/07/19 release 24 hr meclizine 25 mg tablet 25 mg PO TID PRN #90 tab 10/15/19 Allergies Allergy/AdvReac Type Severity Reaction Status Date / Time hydromorphone [From Dilaudid] Allergy Severe DIAPHORETIC, Verified 05/16/20 07:23 NAUSEA, FEELS LIKE SHE COULD PASS OUT. azithromycin AdvReac Intermediate DEPRESSION Verified 05/16/20 07:23 [facility] History - Hepatitis A Screen Drug use history?: No High risk sexual behaviors?: No History of sexually transmitte
[2020-05-16 07:48] VITALS: BP 132/74; PULSE 78; RESP 16; TEMP 36.6; O2SAT 98
== END 2020-05-16 07:50 | disposition home or self-care (01) ==
PROVIDERS: Emergency Provider Emergency Medicine; PCP Nurse Practitioner Family
DX: G56.01 Carpal tunnel syndrome, right upper limb (principal)
CPT/HCPCS: 96372; 99281

== ENCOUNTER 2020-05-16 10:20 | Day surgery (SDC) | payer MEDICARE, OTHER, SELFPAY ==
[2020-05-14 09:58] VITALS: BMI 27.8
[2020-05-16] VITALS (7 sets, daily range): BP systolic 121–167; BP diastolic 67–88; PULSE 66–76; RESP 16–19; TEMP 36.1–36.2; O2SAT 94–100
[2020-05-16 10:57] LABS: POC Glucose,Bedside 103 (70-110)
--- NOTE | 2020-05-16 13:43 | HMH.OPNOTE ---
Date of procedure: 05/16/20 Pre-op Diagnosis:: Carpal tunnel syndrome, right Post-op Diagnosis:: Same Procedure performed:: Open carpal tunnel release, right Surgeon:: Sloan Muhammad MD CIGARETTE PACKAGE EXAMINER:: Josh Kim Anesthesia: regional (Supraclavicular nerve block) Estimated blood loss (mL): 2 Clinical Note:: Patient is 74-year-old female with bilateral carpal tunnel syndrome with long-standing symptoms. 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 Patient is having significant and disabling symptoms on the right side and has failed to respond adequately to conservative management. Therefore the carpal tunnel release surgery is necessary to relieve symptoms, preserve the remaining fibers of the median nerve, improve function and decrease the pain, paresthesias and weakness and to prevent permanent nerve damage. Please refer to my office note for full details. Operative findings:: The intraoperative findings showed the median nerve to be very tightly compressed and hyperemic. The flexor retinaculum was noted to be thick and tight. There was mild synovitis in the carpal tunnel. There was no evidence of any space-occupying lesions within the carpal tunnel. Operative note:: On the day of the surgery the patient was met in the preoperative area. Patient was positively identified and the operative site was marked and initialed by me. A physical examination was performed and the chart was updated. I again discussed the procedure, risks and benefits and alternatives with the patient. The complications discussed include but are not limited to- bleeding, injury to nerves, blood vessels and tendons, infection, wound dehiscence, incomplete relief/continued pain, persistent numbness, palmar hypersensitivity, pillar pain, DVT/PE, complex regional pain syndrome(CRPS), worsening of nerve damage, failure of the condition to improve, incomplete return of function, bowstringing of tendons, weakness of house calls nurse practitioner strength, recurrence, failure of the surgery to accomplish the desired goals, decreased use of the hand, loss of use of the arm, loss of the hand or arm, loss of life. Likely need for further surgery in the future has been discussed. I've indicated to the patient where the proposed incision would be made and also discussed the possibility of extending the incision if needed to accomplish an effective release. We have discussed how the goal of surgery is to protect the fibers which have remained healthy and hopefully reverse the symptoms of the fibers which are compromised but still recoverable. We have explained that, fibers that are permanently damaged will not recover. Patient asked appropriate questions and all have been answered by me. Patient wished to proceed with the surgery. Patient understood the risks, agreed to proceed with surgery, signed the consent form and no guarantees or assurances were given or implied. The patient was brought to the operating room and placed supine on the operating table. The left upper extremity was placed over a side table. All the bony prominences were well-padded. Patient received a supraclavicular nerve block from the baggage agent. The left upper extremity was prepped and draped in the usual sterile fashion. A preprocedure timeout was performed as per hospital policy. The skin incision was marked using the De Luna's landmarks, just ulnar to the thenar crease. The limb was exsanguinated with the Esmarch bandage and tourniquet was inflated to 250 mmHg. Please see nursing records for the total tourniquet time. De Luna's landmarks were utilized and a skin incision was made parallel and just ulnar to the thenar crease with a 15 blade. Blunt tissue dissection was carried through the subcutaneous tissue down to the palmar fascia. The palmar fascia was incised with the knife to reveal the transverse carpal ligament. The transverse carpal ligament was patria
== END 2020-05-16 14:42 | disposition home or self-care (01) ==
LOC: OR 10:22
PROVIDERS: PCP Nurse Practitioner Family; Visit Provider Orthopaedic Surgery
PROC: (CPT 64721; principal; 2020-05-16 11:45)
DX: G56.01 Carpal tunnel syndrome, right upper limb (principal); E11.9 Type 2 diabetes mellitus without complications
CPT/HCPCS: 64721; 82962; 96372; 96374; 99281; J0670

== ENCOUNTER 2020-06-15 00:31 | Observation (INO) | payer MEDICARE, OTHER, SELFPAY ==
[2020-06-15] VITALS (17 sets, daily range): BP systolic 110–154; BP diastolic 60–81; PULSE 70–98; RESP 14–19; TEMP 36.5–36.7; O2SAT 94–98; BMI 27.4; BMI 27.5
--- NOTE | 2020-06-15 00:41 | CT_ITS ---
Procedure: CT ABDOMEN PELVIS W CON Referring Doctor: Alexander Mancilla Patient Age:74Y CLINICAL INDICATION: abdominal pain mid epigastric pain radiates to back. Nausea. Started tonight COMPARISON: CT ABDPELW/O CT ABD PELVIS W/O CONTRAST from 04/20/[address] ABD PELVIS W/ CONTRAST from 05/07/2016 MG DMSB DIG MAMM-SCREEN JOANNE from 06/14/2016 TECHNIQUE: 75 cc Optiray 350 IV contrast utilized. No oral contrast given Helical axial images obtained with sagittal and coronal reformats. All CT scans at the facility use one or more dose reduction, viz: automated exposure control, ma/kV adjustment per patient size (including targeted exams where dose is matched to indication, i.e. head), or iterative reconstruction technique. FINDINGS: Lower thorax: No acute finding. Only minor scarring and atelectasis anteriorly at the RML Again view sliding hiatal hernia contains generous fat, with tiny lymph node seen in this fat to the right-basically stable . ABDOMEN: Liver: No masses or biliary dilatation. No focal lesions Gallbladder: Gallbladder appears moderate distended of with septations/ridging cap. No wall thickening or inflammatory changes surrounding gallbladder by CT but there do appear to be some the low-density gallstones towards the neck of the gallbladder.. Gallbladder ultrasound recommended to further evaluate Pancreas: Generous in size throughout with no masses or nor inflammatory changes by CT. Spleen: unremarkable2 Adrenals: unremarkable tract ------- Kidneys/ureters: No hydronephrosis no obstruction. Only suggestion of atiny 2 mm calculus at upper pole calyx right kidney but nonobstructive (the coronal image 55, axial 39.) PELVIS: Small postmenopausal uterus. No adnexal masses Bladder: Nondistended. Unremarkable no obvious stones or masses. GI tract . Generous fat associated with small hiatal hernia Stomach. Unremarkable as is small bowel.. Terminal ileum appears normal. Appendix satisfactory no evidence of appendicitis Large bowel: Moderate stool right and transverse colon. Diffuse colonic diverticulosis diverticula are seen throughout including right colon. No area of diverticulitis identified. Upper normal wall thickening at the sigmoid and descending colon appear to be reflection of lack of distension and underlying diverticulosis process. Peritoneum: No abnormal fluid collections. No obvious inflammatory changes. No free air. There may be some mild laxity at the left inguinal ring with some bulging of fat here but no significant of hernia as of yet Lymph nodes: No significant enlarged lymph nodes. Vasculature: No evidence of abdominal aortic aneurysm. No retroperitoneal findings but.. Bones: No acute fracture or significant lesion. Degenerative changes throughout the lower L-spine disc space narrowing seen at the lower 3 levels. Posterior spurring yielding spinal stenosis at L3/4.. Facet hypertrophy/disc bulge yielding some relative spinal stenosis at L4/5 and-L5/S1.-these features a similar to previous 2016 study IMPRESSION: Moderately distended bladder with cholelithiasis, but no CT evidence of cholecystitis. Common duct and pancreas appears satisfactory . Other observations:-------- . Appendix normal . Tiny punctate non-obstructing calculus upper pole right kidney . Diffuse colonic diverticulosis but no diverticulitis. . Generous fat containing small sliding hiatal hernia suggested No significant adenopathy and no significant appearing change in the mesentery since 2016 CT abdomen. (V RC raise question regarding some very very minor subtle hazy appearance root of the mesentery extending towards the left of noted
--- NOTE | 2020-06-15 00:42 | XR_ITS ---
PROCEDURE: XR CHEST 2V Referring Doctor: Alexander Mancilla Patient Age:74Y CLINICAL HISTORY: chest pain mid chest pain started tonight radiating to back nausea but nonsmoker COMPARISON: CR CXR2 CHEST-AP VIEW ONLY from 12/10/2014 DX XR CHEST 2V from 07/30/2019 CR XR CHEST 2V from 05/14/2020 FINDINGS: PA and lateral chest performed today and compared to 05/14/2020. No significant interval change. No acute findings but no pneumothorax nor pleural effusion. No focal pneumonia. The heart is normal in size but mildly tortuous ectatic aorta. Diann and superior mediastinal structures appears satisfactory. Suspect tortuous innominate vessel along with slightly electromagnet crane operator film today and less inspiration accounts for slight additional fullness right paratracheal region The chest wall ribs intact. T-spine, unchanged again noting generous anterior marginal osteophytes mid and lower T-spine. IMPRESSION: A stable chest with nothing definitely acute Dictated by: Vinh Jones MD 06/16/2020 00:38 Vinh Jones MD in [place] 06/16/2020 00:38
--- NOTE | 2020-06-15 00:46 | ECG_ITS ---
APPROVED REPORT Exam: Resting ECG HR:74 bpm ECG Measurements Heart Rate 74 AXES MD 178 P 48 QRSd 88 QRS 28 QT 410 T 31 QTc 455 Conclusion Normal sinus rhythm Normal ECG Electronically signed by : Gerald Esquivel, 06/15/2020 16:51:29
[2020-06-15 00:54] LABS: Basophils # 0.1 K/mm3 (0-0.2); Basophils % 0.5 % (0.1-2.0); Eosinophils # 0.2 K/mm3 (0.0-0.4); Eosinophils % 2.5 % (0.1-12.0); Hematocrit 39.8 % (37.0-47.0); Hemoglobin 12.4 g/dL (12.2-16.2); Lymphocytes # 2.4 K/mm3 (0.7-4.5); Lymphocytes % 25.3 % (10-50); Mean Corpuscular Hemoglobin 25.9 pg (27.0-31.2); Mean Corpuscular Volume 83.6 fl (81-99); Mean Platelet Volume 7.9 fl (7.4-10.4); Monocytes # 0.6 K/mm3 (0.1-1.0); Monocytes % 6.6 % (1.7-9.3); Neutrophils # 6.1 K/mm3 (1.8-7.8); Neutrophils % 65.1 % (37.0-80.0); Platelet Count 305 K/mm3 (142-424); Red Blood Count 4.76 M/mm3 (4.20-5.40); Red Cell Distribution Width 15.5 % (11.5-17.5); White Blood Count 9.4 K/mm3 (4.8-10.8)
[2020-06-15 01:02] LABS: Alanine Aminotransferase 15 U/L (12-78); Albumin Level 4.5 g/dl (3.5-5.0); Albumin/Globulin Ratio 1.3 (1.1-1.8); Alkaline Phosphatase 115 U/L (38-126); Amylase 49 U/L (30-110); Anion Gap 13.9 mEq/L (5-15); Aspartate Amino Transferase 40 U/L (14-36); Bilirubin,Total 0.4 mg/dl (0.2-1.3); Blood Urea Nitrogen 27 mg/dl (7-17); Calcium 9.7 mg/dl (8.4-10.2); Carbon Dioxide 28 mmol/L (22.0-30.0); Chloride 106 mmol/L (98-107); Creatinine Clearance Estimated 57 mL/min (50-200); Estimated Glomerular Filt Rate 98 ml/min (>60); GFR (African American) 118 ML/MIN (>60); Globulin 3.5 g/dL (1.3-3.2); Glucose 129 mg/dl (74-100); Lipase 64 U/L (23-300); Potassium 3.9 mmoL/L (3.5-5.1); Sodium 144 mmol/L (136-145)
[2020-06-15 01:12] LABS: NT Pro Brain Natriuretic Pep. 55.1 pg/mL (0-125)
[2020-06-15 01:17] LABS: Troponin I < 0.01 ng/ml (0.00-0.034)
--- NOTE | 2020-06-15 02:01 | PC.NURSE ---
TO CT VIA WC AND ZONE SUPERVISOR FIREARMS
[2020-06-15 02:34] LABS: Microscopic, Urine URINE MICROSCOPIC (MICROSCOPIC)
[2020-06-15 02:35] LABS: Appearance,Urine CLEAR (Clear); Bilirubin,Urine Negative (Negative); Blood, Urine Negative (Negative); Color,Urine YELLOW (Yellow); Glucose,Urine (UA) Negative (Negative); Ketones,Urine Negative (Negative); Leukocyte Esterase,Urine Negative (Negative); Nitrate,Urine Negative (Negative); Protein,Urine Negative (Negative); Specific Gravity, Urine >= 1.030 (1.005-1.030); Urobilinogen,Urine 0.2 EU/dl (0.2)
[2020-06-15 02:39] LABS: Amorphous Sediment,Urine Trace /lpf; Mucus,Urine Trace /lpf
--- NOTE | 2020-06-15 03:56 | HMH.EDCP ---
ED Disposition Clinical Impression: Overweight (BMI 25.0-29.9), Diastolic dysfunction, Elevated left ventricular end-diastolic pressure (LVEDP) Chest pain Qualifiers: Chest pain type: precordial pain Qualified Code(s): R07.2 - Precordial pain GERD (gastroesophageal reflux disease) Qualifiers: Esophagitis presence: esophagitis presence not specified Qualified Code(s): K21.9 - Gastro-esophageal reflux disease without esophagitis Cholelithiasis Qualifiers: Cholelithiasis location: gallbladder Cholecystitis presence: without cholecystitis Biliary obstruction: without biliary obstruction Qualified Code(s): K80.20 - Calculus of gallbladder without cholecystitis without obstruction Disposition: Admitted as Observation Condition on Discharge: Good - Critical Care Critical Care Time: No Attestation: On 06/15/20, the high probability of a clinically significant, sudden or life threatening deterioration of the following system(s) required my full and direct attention, intervention and personal management. The time I documented below is in addition to time spent performing reported procedures but includes the following listed in this critical care notation. Medical Decision Making - Medical Records Medical records reviewed: Yes: I reviewed the patient's medical records. - Celio Inquiry Pt receiving controlled substance: No Vital Signs: 06/15/20 00:39 06/15/20 01:00 06/15/20 01:30 Temperature 98.1 F Temperature Source Oral Pulse Rate [Right Brachial] 74 74 84 Respiratory Rate 16 18 18 Blood Pressure [Right Arm] 150/80 H 132/69 127/69 Blood Pressure Mean [Right Arm] 103 90 88 Blood Pressure Source [Right Arm] Automatic Cuff Blood Pressure Position [Right Arm] Sitting 02 Sat by Pulse Oximetry 98 96 98 Oxygen Delivery Method Room Air Room Air Room Air 06/15/20 02:00 06/15/20 02:30 06/15/20 03:00 Temperature Temperature Source Pulse Rate [Right Brachial] 90 87 80 Respiratory Rate 18 18 18 Blood Pressure [Right Arm] 124/62 137/81 110/60 Blood Pressure Mean [Right Arm] 82 99 76 Blood Pressure Source [Right Arm] Blood Pressure Position [Right Arm] 02 Sat by Pulse Oximetry 97 98 97 Oxygen Delivery Method Room Air Room Air Room Air 06/15/20 03:36 Temperature Temperature Source Pulse Rate [Right Brachial] 88 Respiratory Rate 18 Blood Pressure [Right Arm] 126/63 Blood Pressure Mean [Right Arm] 84 Blood Pressure Source [Right Arm] Blood Pressure Position [Right Arm] 02 Sat by Pulse Oximetry 97 Oxygen Delivery Method Room Air - Lab Data Lab results reviewed: Yes: I reviewed the patient's lab results. Lab Results 06/15/20 00:24: WBC 9.4, RBC 4.76, Hgb 12.4, Hct 39.8, MCV 83.6, MCH 25.9 L, MCHC 31.0 L, RDW 15.5, Plt Count 305, MPV 7.9, Neut % (Auto) 65.1, Lymph % (Auto) 25.3, [place] % (Auto) 6.6, Eos % (Auto) 2.5, Baso % (Auto) 0.5, Neut # (Auto) 6.1, Lymph # (Auto) 2.4, [place] # (Auto) 0.6, Eos # (Auto) 0.2, Baso # (Auto) 0.1 06/15/20 00:24: Sodium 144, Potassium 3.9, Chloride 106, Carbon Dioxide 28, Anion Gap 13.9, BUN 27 H, Creatinine 0.60, Estimated Creat Clear 57, Estimated GFR 98, Est GFR ( Amer) 118, Glucose 129 H, Calcium 9.7, Total Bilirubin 0.4, AST 40 H, ALT 15, Alkaline Phosphatase 115, Troponin I < 0.01, Total Protein 8.0, Albumin 4.5, Globulin 3.5 H, Albumin/Globulin Ratio 1.3, Amylase 49, Lipase 64 06/15/20 00:24: NT-Pro-B Natriuret Pep 55.1 06/15/20 02:31: Urine Color Yellow, Urine Appearance Clear, Urine pH 6.0, Ur Specific [place] >= 1.030, Urine Protein Negative, Urine Glucose (UA) Negative, Urine Ketones Negative, Urine Blood Negative, Urine Nitrate Negative, Urine Bilirubin Negative, Urine Urobilinogen 0.2, Ur Leukocyte Esterase Negative, Urine WBC 5-10, Ur Squamous Epith Cells 10-20, Amorphous Sediment Trace, Urine Mucus Trace 06/15/20 03:25: Troponin I < 0.01 Result diagrams: 06/15/20 00:24 06/15/20 00:24 Orders (Tests/Meds): ED MEDICATIONS Generic Name Dose
--- NOTE | 2020-06-15 04:23 | PC.NURSE ---
PLAN TO ADMIT WITH CP. NOTIFIED ASSISTANT COACH.
[2020-06-15 04:26] LABS: Troponin I < 0.01 ng/ml (0.00-0.034)
[2020-06-15 04:50] LABS: Coronavirus 19 IgG Antibody Negative (Negative); Coronavirus 19 IgM Antibody Negative (Negative)
[2020-06-15 05:21] LABS: Free T4 (Free Thyroxine) 0.89 ng/dl (0.78-2.19)
--- NOTE | 2020-06-15 05:23 | PC.NURSE ---
PT ARRIVED TO THE FLOOR VIA W/C FROM ED W/STAFF AT 1316
[2020-06-15 05:36] LABS: Thyroid Stimulating Hormone 1.91 uIU/mL (0.465-4.68)
[2020-06-15 07:01] LABS: POC Glucose,Bedside 104 (70-110)
[2020-06-15 07:43] LABS: Troponin I < 0.01 ng/ml (0.00-0.034)
--- NOTE | 2020-06-15 07:51 | PC.NURSE ---
(R) wrist. Post surgical
--- NOTE | 2020-06-15 08:00 | US_ITS ---
PROCEDURE: US GALLBLADDER Referring Doctor: Alexander Mancilla Patient Age:74Y CLINICAL INDICATION: abd pain/abn ct Abdominal pain nausea COMPARISON: CT CT ABDOMEN PELVIS W CON from 06/15/2020 FINDINGS: Gallbladder: Gallstones are seen towards the neck of the gallbladder. On ultrasound 1 of the larger shadowing stones measures the 11 mm maximally with other smaller stones here.. Gallbladder appears somewhat dilated overall. It measuring over 9 cm length x 4.5 cm. Gallbladder wall is normal to upper normal thickness in some areas. No adjacent fluid. Prominent septation, Phrygian cap noted Common duct is normal in diameter. Measuring up to 5.3 mm diameter on this ultrasound Liver: Unremarkable. No intrahepatic biliary ductal dilatation. No mass lesions. . Portal vein normal caliber normal flow pattern Pancreas: Generous sized throughout but no focal lesions but no fluid collections. No pancreatic ductal dilatation by ultrasound the. . Right kidney: Unremarkable appearing. No hydronephrosis. 11.2 cm in length. No hydronephrosis nor mass. IMPRESSION: 1...Cholelithiasis within moderately distended gallbladder . Multiple gallstones towards neck of the gallbladder, within moderately dilated/distended gallbladder (but No significant gallbladder wall thickening or surrounding fluid to suggest acute cholecystitis) .. Common duct appears normal diameter. 2...Pancreas; liver; right kidney -all otherwise unremarkable all by today's ultrasound Dictated by: Vinh Jones MD 06/15/2020 11:32 Vinh Jones MD in [place] 06/15/2020 11:32
--- NOTE | 2020-06-15 09:30 | PC.NURSE ---
down for gallbladder ultrasound
--- NOTE | 2020-06-15 11:03 | HMH.PHAVTE ---
[facility] Pharmacy VTE Monitoring - Patient Demographics Admission date: 06/15/20 Report Date: 06/15/20 Time: 11:03 Allergies/Adverse Reactions: Patient Allergies hydromorphone [From Dilaudid] Allergy (Severe, Verified 06/13/20 09:32) DIAPHORETIC, NAUSEA, FEELS LIKE SHE COULD PASS OUT. azithromycin Adverse Reaction (Intermediate, Verified 06/13/20 09:32) DEPRESSION Height: 1.63 m Weight: 73.17 kg Patient Problems: Current Active Problems Elevated left ventricular end-diastolic pressure (LVEDP) (Acute) GERD (gastroesophageal reflux disease) (Acute) Cholelithiasis (Acute) Overweight (BMI 25.0-29.9) (Acute) Diastolic dysfunction (Chronic) Chest pain (Acute) - VTE Risk Labs: VTE Related Lab Results Hgb 12.4 g/dL (12.2-16.2) 06/15/20 00:24 Hct 39.8 % (37.0-47.0) 06/15/20 00:24 Plt Count 305 K/mm3 (142-424) 06/15/20 00:24 BUN 27 mg/dl (7-17) H 06/15/20 00:24 Creatinine 0.60 mg/dl (0.52-1.04) 06/15/20 00:24 Estimated Creat Clear 57 mL/min (50-200) 06/15/20 00:24 VTE Score: 3 VTE Risk Level: Low Risk - Prophylaxis VTE Prophylaxis Ordered?: Yes Types of VTE Prophylaxis: TEDS Knee High Location of Applied Device: Bilateral Lower Extremeties
--- NOTE | 2020-06-15 14:44 | HMH.HP ---
*Admission Date: 06/15/20 *Chief complaint: chest pain *History of present illness: 74 yr old female presented to ed after she was watching a hallmark move and she began having problems getting her breath and chest discomfort radiating into her back. Pt states pain is mid epigastric area. Pt stated to ed that it felt like something is stuck. HX of diverticulitis and NIDDM. Patient states she had a heart cath this year and did not require stents.Patient admitted for further work up and monitoring. [facility] History I have reviewed the patient's past medical history: Yes Medical History: Reports:: Anxiety, Coronary Artery Disease, Depression, Diabetes Mellitus Type 2, Hyperlipidemia, Hypertension, Palpitations Denies:: Cancer, Diabetes Mellitus Type 1, Internal Pacemaker, MRSA, Seizures *Have you ever received a pneumonia vaccine?: Yes *Have you received a flu vaccine this season?: No Other Medical History: Reports: Arthritis, Thyroid Disease. Denies: Blood Transfusion Reaction Laterality Cases: Right: Carpal Tunnel Release, Bilateral: Tonsillectomy Other Surgeries: Yes: No Previous Surgery, Cardiac Catheterization, Colonoscopy, EGD, Sinus Surgery, Other. No: Pacemaker Amputation: No Fractures: No - *Social History Last grade of school completed: High school graduate Smoking Status: Never smoker Alcohol Intake: never Substance Use Type: denies use *Occupational Status:: retired Housing: house Household Members: none *Travel in the last 8 weeks: None - Psychiatric History Pschychiatric History:: Reports:: Anxiety, Depression Family Hx:: Hyperlipidemia, Hypertension, Thyroid Disorder, Tuberculosis, Mental illness Review of Systems - Review of Systems Review of systems:: pertinent systems reviewed and negative unless documented below - Constitutional Denies body ache(s) - Eyes Denies change in vision - ENT Denies bleeding gums - *Cardiovascular Reports chest pain at rest, Reports chest pain with activity, Reports shortness of breath - *Respiratory Denies chest congestion - *Gastrointestinal Reports abdominal pain, Denies nausea - *Genitourinary Denies difficulty urinating - *Musculoskeletal Denies joint pain - Integumentary/Breasts Denies rash - *Neurologic Denies dizziness - Psychiatric Denies lack of enjoyment - Endocrine Denies excessive sweating - Hematologic/Lymphatic Denies easy bruising Meds Home Medications Medication Instructions Recorded Confirmed Type glimepiride 2 mg tablet 2 mg PO DAILY 11/09/18 06/15/20 History levothyroxine 75 mcg tablet 75 mcg PO DAILY 11/09/18 06/15/20 History lamotrigine 150 mg tablet 150 mg PO DAILY #30 tab 08/07/19 06/15/20 Rx venlafaxine 150 mg tablet,extended 150 mg PO DAILY #30 tab 08/07/19 06/15/20 Rx release 24 hr aspirin 81 mg tablet,delayed 81 mg PO DAILY 08/21/19 06/15/20 History release omeprazole 20 mg capsule,delayed 20 mg PO DAILY cap 08/21/19 06/15/20 History release pravastatin 20 mg tablet 20 mg PO HS 10/04/19 06/15/20 History Buspirone HCl [Buspar 10mg 10 mg PO TID 03/11/20 06/15/20 History tablet] bisoproloL fumarate [Bisoprolol 5 mg PO DAILY 03/11/20 06/15/20 History Fumarate] Potassium 99 mg PO DAILY 06/15/20 06/15/20 History Vit C/E/Zn/Coppr/Lutein/Zeaxan 1 each PO DAILY 06/15/20 06/15/20 History [Preservision Areds 2 Softgel] Allergies Allergy/AdvReac Type Severity Reaction Status Date / Time hydromorphone [From Dilaudid] Allergy Severe DIAPHORETIC, Verified 06/13/20 09:32 NAUSEA, FEELS LIKE SHE COULD PASS OUT. azithromycin AdvReac Intermediate DEPRESSION Verified 06/13/20 09:32 Exam Vital signs and Labs for Last 24 Hours: Temp Pulse Resp BP Pulse Ox 98.0 F 89 19 154/69 H 98 06/15/20 11:24 06/15/20 11:24 06/15/20 11:24 06/15/20 11:24 06/15/20 11:24 Laboratory Results - last 24 hr 06/15/20 00:24: WBC 9.4, RBC 4.76, Hgb 12.4, Hct 39.8, MCV 83.6, MCH 25.9 L, M
[2020-06-15 16:20] LABS: POC Glucose,Bedside 118 (70-110)
[2020-06-15 16:27] LABS: POC Glucose,Bedside 147 (70-110)
--- NOTE | 2020-06-15 17:45 | PC.NURSE ---
patient has done well this shift. only complaint is slight abdominal pain to her left side and slight scratchy throat. no other complaints are noted. tolerating diet well. md wants patient npo at midnight. vitals stable will continue to monitor/
[2020-06-16] VITALS: BP 131/77; PULSE 84; RESP 16; TEMP 36.7; O2SAT 98
[2020-06-16 00:05] VITALS: PULSE 80
[2020-06-16 01:32] LABS: POC Glucose,Bedside 131 (70-110)
[2020-06-16 04:00] VITALS: BP 146/83; PULSE 84; PULSE 90; RESP 16; TEMP 36.6; O2SAT 98
[2020-06-16 05:00] VITALS: BMI 27.2
--- NOTE | 2020-06-16 06:02 | PC.NURSE ---
Pt has not slept well this shift. She remains concerned about DSG to (R) wrist from post op procedure. DSG changed x2 per pt request. She has c/o nausea x1 this shift. She states that she has had some abdominal discomfort at times. VSS. Pt has had a bed this shift. Call lght within reach. Will continue to monitor.
[2020-06-16 06:15] LABS: Basophils % 0.3 % (0.1-2.0); Eosinophils # 0.1 K/mm3 (0.0-0.4); Eosinophils % 1.9 % (0.1-12.0); Hematocrit 34.8 % (37.0-47.0); Hemoglobin 11.3 g/dL (12.2-16.2); Lymphocytes # 1.5 K/mm3 (0.7-4.5); Lymphocytes % 21.1 % (10-50); Mean Corpuscular HGB Conc 32.4 g/dL (31.8-35.4); Mean Corpuscular Hemoglobin 26.6 pg (27.0-31.2); Mean Platelet Volume 7.7 fl (7.4-10.4); Monocytes # 0.4 K/mm3 (0.1-1.0); Monocytes % 5.8 % (1.7-9.3); Platelet Count 241 K/mm3 (142-424); Red Blood Count 4.24 M/mm3 (4.20-5.40); Red Cell Distribution Width 15.6 % (11.5-17.5)
[2020-06-16 06:17] LABS: Chloride 107 mmol/L (98-107); Potassium 3.5 mmoL/L (3.5-5.1); Sodium 141 mmol/L (136-145)
[2020-06-16 06:20] LABS: Anion Gap 10.5 mEq/L (5-15); Blood Urea Nitrogen 14 mg/dl (7-17); Carbon Dioxide 27 mmol/L (22.0-30.0); Creatinine Clearance Estimated 56 mL/min (50-200); Estimated Glomerular Filt Rate 98 ml/min (>60); GFR (African American) 118 ML/MIN (>60)
[2020-06-16 06:21] LABS: Calcium 8.9 mg/dl (8.4-10.2); Glucose 119 mg/dl (74-100)
--- NOTE | 2020-06-16 06:32 | PC.NURSE ---
Mian REYNA NOTIFIED OF CONSULT.
[2020-06-16 06:51] LABS: POC Glucose,Bedside 116 (70-110)
--- NOTE | 2020-06-16 07:24 | PC.NURSE ---
Notified Dr. Page of consult on patient.
--- NOTE | 2020-06-16 08:00 | CA_ITS ---
APPROVED REPORT EXAM: Comprehensive 2D, Doppler, and color-flow Echocardiogram Management Aide: Kira Gill RVT Ht: 5 ft 4 in Wt: 159lbs BSA: 1.77 BP: 134/78 mmHg Indications: CP,CAD,GERD,DM,SOA,HTM,HLD 2D Dimensions LVOT 1.68 cm (M/F) 1.5-2.5 M-Mode Dimensions RVDd 1.71 cm (0.9-2.6) LA Diam 3.89 cm (1.9-4.0) LVDd 4.32 cm (3.5-5.7) Ao Diam 2.89 cm (2.0-3.7) LVDs 2.72 cm (3.5-5.7) IVSd 1.11 cm (0.6-1.1) PWd 1.04 cm (0.6-1.1) EF (Teich) 67.30% FS 37.00% EDV (Teich) 84.00 mL ESV (Teich) 27.50 mL LV Diastology E Decel Time 150.00 (160-240 msec) E/A Ratio 0.9 Mitral Valve MV E Max Fox. 81.00 (40-130 cm/s) MV A Velocity 91.00 (40-130 cm/s) E/A Ratio 0.89 MV Decel. Time 150.00 (160-240 ms) MV PHT 44.00 ms Pulmonary Valve PV Peak Velocity 94.00 (50-150 cm/s) Tricuspid Valve TR P. Velocity 366.00 cm/s Left Ventricle Left atrium is mildly enlarged, left ventricle is normal size, mild concentric left ventricular hypertrophy, visually estimated ejection fraction 55% with no regional wall motion abnormality, Doppler evidence of impaired LV relaxation seen, there is no tissue Doppler performed. Right Ventricle Right atrium and right ventricular normal size and contractility. Aortic Valve Aortic valve is minimally thickened and fibrosed, there is no aortic stenosis or aortic insufficiency. Mitral Valve Mitral valve is grossly normal, there is mild mitral regurgitation. Tricuspid Valve Tricuspid valve is grossly normal, there is mild tricuspid regurgitation, tricuspid regurgitation jet velocity is inadequate for calculation of the right ventricular systolic pressure. Pulmonic Valve Pulmonic valve is poorly visualized. Great Vessels Aortic root is normal size. Pericardium No significant pericardial effusion noted. Conclusion 1. Mildly enlarged left atrium, normal left ventricular size, mild concentric left ventricular hypertrophy, visually estimated ejection fraction 55% with no regional wall motion abnormality, Doppler evidence of impaired LV relaxation seen, there is no tissue Doppler performed. 2. Mild mitral and tricuspid regurgitation. 3. No significant pericardial effusion noted. Electronically signed by : Dejuan Granados, 06/17/2020 05:18:03
--- NOTE | 2020-06-16 08:26 | HMH.GSCON ---
*Admission Date: 06/15/20 *Reason for consult:: Cholelithiasis *History of present illness: Patient is a 74-year-old diabetic female who normally sees Jojo Wilde in [place] for medical care. Tuesday night she had been watching television and drinking a carbonated beverage. She experienced mid epigastric pain and chest pain as well as symptoms described as severe indigestion . She presented to the emergency department where she was seen and evaluated. She was admitted for further inpatient management. She underwent CT scan of the abdomen and pelvis and this revealed somewhat distended gallbladder with gallstones. She had a confirmatory ultrasound of the gallbladder which revealed normal common bile duct with gallstones. Surgical consultation was ordered this morning. Patient is n.p.o. She is asymptomatic. He denies any prior history of gallstones. She has had some left lower quadrant discomfort. This is been ongoing for some time. She has had a prior colonoscopy. Review of Systems - Review of Systems Review of systems:: pertinent systems reviewed and negative unless documented below - *Neurologic Denies dizziness [facility] History Medical History: Reports:: Anxiety, Coronary Artery Disease, Depression, Diabetes Mellitus Type 2, Hyperlipidemia, Hypertension, Palpitations Denies:: Cancer, Diabetes Mellitus Type 1, Internal Pacemaker, MRSA, Seizures *Have you ever received a pneumonia vaccine?: Yes *Have you received a flu vaccine this season?: No Other Medical History: Reports: Arthritis, Thyroid Disease. Denies: Blood Transfusion Reaction Laterality Cases: Right: Carpal Tunnel Release, Bilateral: Tonsillectomy Other Surgeries: Yes: No Previous Surgery, Cardiac Catheterization, Colonoscopy, EGD, Sinus Surgery, Other. No: Pacemaker Amputation: No Fractures: No - *Social History Last grade of school completed: High school graduate Smoking Status: Never smoker Alcohol Intake: never Substance Use Type: denies use *Occupational Status:: retired Housing: house Household Members: none *Travel in the last 8 weeks: None - Psychiatric History Pschychiatric History:: Reports:: Anxiety, Depression Family Hx:: Hyperlipidemia, Hypertension, Thyroid Disorder, Tuberculosis, Mental illness Meds Home Medications Medication Instructions Recorded Confirmed Type glimepiride 2 mg tablet 2 mg PO DAILY 11/09/18 06/15/20 History levothyroxine 75 mcg tablet 75 mcg PO DAILY 11/09/18 06/15/20 History lamotrigine 150 mg tablet 150 mg PO DAILY #30 tab 08/07/19 06/15/20 Rx venlafaxine 150 mg tablet,extended 150 mg PO DAILY #30 tab 08/07/19 06/15/20 Rx release 24 hr aspirin 81 mg tablet,delayed 81 mg PO DAILY 08/21/19 06/15/20 History release omeprazole 20 mg capsule,delayed 20 mg PO DAILY cap 08/21/19 06/15/20 History release pravastatin 20 mg tablet 20 mg PO HS 10/04/19 06/15/20 History Buspirone HCl [Buspar 10mg 10 mg PO TID 03/11/20 06/15/20 History tablet] bisoproloL fumarate [Bisoprolol 5 mg PO DAILY 03/11/20 06/15/20 History Fumarate] Potassium 99 mg PO DAILY 06/15/20 06/15/20 History Vit C/E/Zn/Coppr/Lutein/Zeaxan 1 each PO DAILY 06/15/20 06/15/20 History [Preservision Areds 2 Softgel] Allergies Allergy/AdvReac Type Severity Reaction Status Date / Time hydromorphone [From Dilaudid] Allergy Severe DIAPHORETIC, Verified 06/13/20 09:32 NAUSEA, FEELS LIKE SHE COULD PASS OUT. azithromycin AdvReac Intermediate DEPRESSION Verified 06/13/20 09:32 Exam Vital signs and Labs for Last 24 Hours: Temp Pulse Resp BP Pulse Ox 97.9 F 84 16 146/83 H 98 06/16/20 04:00 06/16/20 04:00 06/16/20 04:00 06/16/20 04:00 06/16/20 04:00 Laboratory Results - last 24 hr 06/15/20 11:26: POC Glucose 147 H 06/15/20 16:04: POC Glucose 118 H 06/15/20 20:38: POC Glucose 131 H 06/16/20 05:34: WBC 7.0 D, RBC 4.24, Hgb 11.3 L, Hct 34.8 L, MCV 82.0, MCH 26.6 L, MCHC 32.4, RDW 15.6, Plt Count 241, M
--- NOTE | 2020-06-16 09:27 | PC.NURSE ---
per dr. mart pt can have a diabetic diet. will put order in pending cardiology consult.
--- NOTE | 2020-06-16 10:32 | HMH.CNCARD ---
History of Present Illness Consult date: 06/16/20 Requesting physician: Alexander Mancilla Consult reason: chest pain Chief complaint: chest pain Additional Medical History:: 1. Hypertension 2. Hyperlipidemia 3. Diabetes mellitus 4. Hypothyroidism 5. History of anxiety/depression 6. Coronary artery disease [facility], 09/2019 ANGIOGRAPHIC RESULTS The left main artery Normal The left anterior descending artery Has proximal mid vessel mild 10% luminal irregularities The circumflex artery Is nondominant has proximal mid vessel 10% luminal irregularities The right coronary artery Is dominant and has mild proximal and mid vessel 10% luminal irregularities The JANE ventriculogram reveals Normal 65% The left ventricular end-diastolic pressure Moderate to severely elevated at 25 to 30 mmHg IMPRESSION Mild [id number] coronary disease Normal ejection fraction Moderate to severely elevated LVEDP consistent with diastolic dysfunction PLAN 1. Standard therapy for ischemic heart disease 2. Treatment of diastolic dysfunction which is the etiology for patient's underlying symptoms Electronically signed by : Cirilo Dawn, 09/13/2019 10:50:48 History of present illness: 74-year-old white female with mild coronary artery disease by cardiac catheterization 09/2019 presented to the emergency department for onset of chest pressure with radiation to the back at rest. Patient states it felt like indigestion but no significant relief with belching. Patient contacted EMS and was given 3 baby aspirin in route with some improvement in symptoms by the time she got to the ER. EKG was sinus rhythm with no acute ST segment changes in the ER but patient was kept overnight for observation. Troponins have returned normal x3 and echocardiogram today shows preserved ejection fraction with no significant wall motion abnormality. Patient relates having a bowel movement earlier today and now has no discomfort except some soreness in her suprapubic area. [facility] History Medical History: Reports:: Anxiety, Coronary Artery Disease, Depression, Diabetes Mellitus Type 2, Hyperlipidemia, Hypertension, Palpitations Denies:: Cancer, Diabetes Mellitus Type 1, Internal Pacemaker, MRSA, Seizures *Have you ever received a pneumonia vaccine?: Yes *Have you received a flu vaccine this season?: No Other Medical History: Reports: Arthritis, Thyroid Disease. Denies: Blood Transfusion Reaction Laterality Cases: Right: Carpal Tunnel Release, Bilateral: Tonsillectomy Other Surgeries: Yes: No Previous Surgery, Cardiac Catheterization, Colonoscopy, EGD, Sinus Surgery, Other. No: Pacemaker Amputation: No Fractures: No - *Social History Last grade of school completed: High school graduate Smoking Status: Never smoker Alcohol Intake: never Substance Use Type: denies use *Occupational Status:: retired Housing: house Household Members: none *Travel in the last 8 weeks: None - Psychiatric History Pschychiatric History:: Reports:: Anxiety, Depression Family Hx:: Hyperlipidemia, Hypertension, Thyroid Disorder, Tuberculosis, Mental illness Meds Home Medications Medication Instructions Recorded Confirmed Type glimepiride 2 mg tablet 2 mg PO DAILY 11/09/18 06/15/20 History levothyroxine 75 mcg tablet 75 mcg PO DAILY 11/09/18 06/15/20 History lamotrigine 150 mg tablet 150 mg PO DAILY #30 tab 08/07/19 06/15/20 Rx venlafaxine 150 mg tablet,extended 150 mg PO DAILY #30 tab 08/07/19 06/15/20 Rx release 24 hr aspirin 81 mg tablet,delayed 81 mg PO DAILY 08/21/19 06/15/20 History release omeprazole 20 mg capsule,delayed 20 mg PO DAILY cap 08/21/19 06/15/20 History release pravastatin 20 mg tablet 20 mg PO HS 10/04/19 06/15/20 History Buspirone HCl [Buspar 10mg 10 mg PO TID 03/11/20 06/15/20 History tablet] bisoproloL fumarate [Bisoprolol 5 mg PO DAILY 03/11/20 06/15/20 History Fumarate] Potassium 99 mg PO DAILY 06/15/20 06/15/20 History Vit C/E/Zn/
[2020-06-16 10:51] LABS: POC Glucose,Bedside 117 (70-110)
--- NOTE | 2020-06-16 11:28 | PC.NURSE ---
pt ok to eat per paul tolentino
[2020-06-16 11:37] VITALS: BP 132/73; PULSE 76; RESP 18; TEMP 36.6; O2SAT 97
[2020-06-16 11:55] VITALS: PULSE 80
--- NOTE | 2020-06-16 12:17 | HMH.DCSUM ---
General - General Admission date:: 06/15/20 Discharge date: 06/16/20 HPI HPI: 74 yr old female presented to ed after she was watching a hallmark move and she began having problems getting her breath and chest discomfort radiating into her back. Pt states pain is mid epigastric area. Pt stated to ed that it felt like something is stuck. HX of diverticulitis and NIDDM. Patient states she had a heart cath this year and did not require stents.Patient admitted for further work up and monitoring. Hospital Course Hospital Course: Laboratory Tests 06/15/20 06/15/20 06/15/20 00:24 00:24 00:24 WBC 9.4 RBC 4.76 Hgb 12.4 Hct 39.8 MCV 83.6 MCH 25.9 L MCHC 31.0 L RDW 15.5 Plt Count 305 MPV 7.9 Neut % (Auto) 65.1 Lymph % (Auto) 25.3 [place] % (Auto) 6.6 Eos % (Auto) 2.5 Baso % (Auto) 0.5 Neut # (Auto) 6.1 Lymph # (Auto) 2.4 [place] # (Auto) 0.6 Eos # (Auto) 0.2 Baso # (Auto) 0.1 Sodium 144 Potassium 3.9 Chloride 106 Carbon Dioxide 28 Anion Gap 13.9 BUN 27 H Creatinine 0.60 Estimated Creat Clear 57 Estimated GFR 98 Est GFR ( Amer) 118 Glucose 129 H POC Glucose Calcium 9.7 Total Bilirubin 0.4 AST 40 H ALT 15 Alkaline Phosphatase 115 Troponin I < 0.01 NT-Pro-B Natriuret Pep 55.1 Total Protein 8.0 Albumin 4.5 Globulin 3.5 H Albumin/Globulin Ratio 1.3 Amylase 49 Lipase 64 TSH Free T4 Urine Color Urine Appearance Urine pH Ur Specific [place] Urine Protein Urine Glucose (UA) Urine Ketones Urine Blood Urine Nitrate Urine Bilirubin Urine Urobilinogen Ur Leukocyte Esterase Urine WBC Ur Squamous Epith Cells Amorphous Sediment Urine Mucus SARS-CoV-2 IgG Ab (Rapid) SARS-CoV-2 IgM Ab (Rapid) 06/15/20 06/15/20 06/15/20 00:24 00:24 00:24 WBC RBC Hgb Hct MCV MCH MCHC RDW Plt Count MPV Neut % (Auto) Lymph % (Auto) [place] % (Auto) Eos % (Auto) Baso % (Auto) Neut # (Auto) Lymph # (Auto) [place] # (Auto) Eos # (Auto) Baso # (Auto) Sodium Potassium Chloride Carbon Dioxide Anion Gap BUN Creatinine Estimated Creat Clear Estimated GFR Est GFR ( Amer) Glucose POC Glucose Calcium Total Bilirubin AST ALT Alkaline Phosphatase Troponin I NT-Pro-B Natriuret Pep Total Protein Albumin Globulin Albumin/Globulin Ratio Amylase Lipase TSH 1.91 Free T4 0.89 Urine Color Urine Appearance Urine pH Ur Specific [place] Urine Protein Urine Glucose (UA) Urine Ketones Urine Blood Urine Nitrate Urine Bilirubin Urine Urobilinogen Ur Leukocyte Esterase Urine WBC Ur Squamous Epith Cells Amorphous Sediment Urine Mucus SARS-CoV-2 IgG Ab (Rapid) Negative SARS-CoV-2 IgM Ab (Rapid) Negative 06/15/20 06/15/20 06/15/20 02:31 03:25 06:52 WBC RBC Hgb Hct MCV MCH MCHC RDW Plt Count MPV Neut % (Auto) Lymph % (Auto) [place] % (Auto) Eos % (Auto) Baso % (Auto) Neut # (Auto) Lymph # (Auto) [place] # (Auto) Eos # (Auto) Baso # (Auto) Sodium Potassium Chloride Carbon Dioxide Anion Gap BUN Creatinine Estimated Creat Clear Estimated GFR Est GFR ( Amer) Glucose POC Glucose 104 Calcium Total Bilirubin AST ALT Alkaline Phosphatase Troponin I < 0.01 NT-Pro-B Natriuret Pep Total Protein Albumin Globulin Albumin/Globulin Ratio Amylase Lipase TSH Free T4 Urine Color Yellow Urine Appearance Clear Urine pH 6.0 Ur Specific [place] >= 1.030 Urine Protein Negative Urine Glucose (UA) Negative Urine Ketones Negative Urine Blood Negative
== END 2020-06-16 13:56 | disposition home or self-care (01) ==
LOC: ER 00:51 → 2ND 04:48
PROVIDERS: Nurse Practitioner Family; Admitting Provider Emergency Medicine; Emergency Provider Emergency Medicine; PCP Nurse Practitioner Family; Visit Provider Emergency Medicine
DX: R07.9 Chest pain, unspecified (principal); I50.1 Left ventricular failure, unspecified; I11.0 Hypertensive heart disease with heart failure; I50.32 Chronic diastolic (congestive) heart failure; E03.9 Hypothyroidism, unspecified; E11.9 Type 2 diabetes mellitus without complications; Z79.84 Long term (current) use of oral hypoglycemic drugs; I25.10 Atherosclerotic heart disease of native coronary artery without angina pectoris; K21.9 Gastro-esophageal reflux disease without esophagitis; E78.5 Hyperlipidemia, unspecified; Z79.899 Other long term (current) drug therapy; K80.50 Calculus of bile duct without cholangitis or cholecystitis without obstruction
CPT/HCPCS: 36415; 71046; 74177; 76705; 80048; 80053; 81001; 82150; 82962; 83690; 83880; 84439; 84443; 84484; 85025; 86328; 93005; 93306; 96365; 96375; 99284; G0378; J2405; Q9967

== ENCOUNTER 2020-07-04 15:30 | Outpatient (RCR) | payer MEDICARE, OTHER, SELFPAY ==
--- NOTE | 2020-06-19 11:30 | HMH.PTOPWND ---
Rehab Outpt Wound Evaluation Rehab OP Wound Evaluation Start: 06/19/20 11:24 Freq: Status: Active Protocol: Document 06/19/20 11:25 [email or web address] (Rec: 06/19/20 11:30 [email or web address] [id number]) Electronically Signed By Teja Coe, PT 06/19/20 11:25 Subjective/History History History THis is the initial Physical Therapy wound clinic evaluation for Maryuri Emery. Pt is a 74 y/o female referred to wound clinic for non- healing surgical wound s/p RUE CTR. Pt rpeorts she had CTR ~ 5 weeks ago and wound has not fully healed. Subjective Subjective Pt rpeorts she has numbness in whole hand and all fingers Wound Eval Wound Right Anterior Wrist Wound Type Incision Is This a Chronic Wound Yes Wound Length (cm) 1.0 Wound Width (cm) 1.1 Wound Bed Appearance Beefy Red,White Percentage Granulated (%) 50 Percentage of Slough (%) 50 Wound Margins Description Well Defined Surrounding Tissue Appearance [place] Drainage Amount Small Drainage Odor No Odor Dressing Status Dry & Intact Primary Dressing Silver Dressing Comment tegederm ag mesh Wound Secondary Dressing Type Absorbant Pad Comment optifoam border Wound Debridement Method Sharps Wound Debridement Amount of Tissue Minimal Removed Wound Debridement Result Healthy Tissue Revealed Dressing Change Patient Tolerance Tolerated Well Wound Problems/Impairments Impairments Problems/Impairmments Subjective C/O Pain,Impaired Self Care/Self Management Prognosis Rehab Potential Fair Clinical Impression Consistent with Diagnosis Yes Short Term Goals Number of Weeks 4 Decrease Wound Area Yes: 25% Decrease Yellow/White Slough % Yes: 25% Increase Red Granulation Tissue % Yes: 75% Longterm Goals Number of Weeks 8 Decrease Wound Area Yes: 75% Increase Red Granulation Tissue % Yes: 100% Patient to be Ind w/ Home Wound Care/ Yes Dressing Changes Outpatient Therapy Plan of Care Treatment Plan May Include Wound Care Yes Eval/Re-Eval Yes Frequency Times per week 2 Duration Number of Weeks 8 Addendums This patient is a candidate for social No or vocational rehab? Patient/Guardi
== END 2020-07-04 15:35 | disposition home or self-care (01) ==
LOC: PT 15:30
PROVIDERS: PCP Nurse Practitioner Family; Visit Provider Orthopaedic Surgery
DX: G56.01 Carpal tunnel syndrome, right upper limb (principal)
CPT/HCPCS: 97161; 97597

== ENCOUNTER 2020-07-06 01:26 | Emergency (ER) | payer MEDICARE, OTHER, SELFPAY ==
[2020-07-06 01:30] VITALS: BP 158/86; PULSE 91; RESP 18; TEMP 36.3; O2SAT 98; BMI 27.4
--- NOTE | 2020-07-06 01:46 | XR_ITS ---
PROCEDURE: XR CHEST AP Referring Doctor: Geovany Theodore Patient Age:74Y CLINICAL HISTORY: cp Epigastric pain. Nausea vomiting COMPARISON: [facility] DIGITAL MAMM-SCREEN BILATERAL from 11/22/2011 [facility] DIG MAMM-SCREEN JOANNE from 05/13/2015 [facility] DIG MAMM-SCREEN JOANNE from 06/14/2016 [facility] MM Dig screening mamm BI w/CAD from 07/10/2018 MG MM DIG SCREENING MAMM BI W/CAD from 07/23/2019 DX XR CHEST 2V from 07/30/2019 CR XR CHEST 2V from 05/14/2020 CR XR CHEST 2V from 06/15/[address] ABDOMEN PELVIS W CON from 07/06/2020 FINDINGS: AP upright CXR Lungs well expanded clear with No active disease. Heart appears normal size with and mediastinal structures satisfactory. SOMEWHAT tortuous ascending aorta may reflect underlying hypertension but nonspecific. The cardiomediastinal silhouette and pulmonary vascularity are within normal limits. The lungs are clear without infiltrates, suspicious nodules, or pleural effusions.. No acute bony abnormalities. IMPRESSION: Nothing definitely acute Lungs clear. Stable chest Dictated by: Vinh Jones MD 07/06/2020 11:36 Vinh Jones MD in [facility] 07/06/2020 11:36
--- NOTE | 2020-07-06 01:46 | CT_ITS ---
Procedure: CT ABDOMEN PELVIS W CON Referring Doctor: Geovany Theodore Patient Age:74Y CLINICAL INDICATION: abd pain EPIGASTRIC PAIN WITH NAUSEA VOMITING. VOMITING STARTED TONIGHT COMPARISON: CT ABDPELW/O CT ABD PELVIS W/O CONTRAST from 04/20/2016 MG MM DIG SCREENING MAMM BI W/CAD from 07/23/2019 US US GALLBLADDER from 06/15/2020 TECHNIQUE: A 75 CC ISOVUE 370 IV contrast utilized; but no oral contrast given. HELICAL axial images obtained with sagittal and coronal reformats. All CT scans at the facility use one or more dose reduction, viz: automated exposure control, ma/kV adjustment per patient size (including targeted exams where dose is matched to indication, i.e. head), or iterative reconstruction technique. FINDINGS: Lower Thorax: bibasilar Atelectasis. Small Sliding Hiatal Hernia Suggested As Seen On Previous Mammograms There Is Asymmetric Density At The Left Retroareolar Region.-this Is To Be Followed With Mammography Abdomen: liver: . Normal Enhancement Likely Mild Diffuse Fatty Changes No Masses Or Biliary Dilatation. Gallbladder: moderate Distended Gallbladder Trace Amount Of Slightly Hyperdense Material Within The Dependent Portion Of Gallbladder Likely Reflecting Sludge Or Possibly Small Stones/gravel. No Significant Gallbladder Wall Thickening. Common Duct Normal Diameter With No Obvious Stones Along Course Of Common Duct But... Pancreas: diffuse Peripancreatic Fat Stranding And Homogeneous Peripancreatic Fluid Most Evident About The Tail Of The Pancreas And Outlining Joint Is Fascia.. This Appears To Be Inflammatory Fluid Reflecting Acute Pancreatitis. Minimal Edema Extends Into The Root Of The Mesentery And Surrounds The Descending Duodenum Is Well. The Fluid About The Pancreas Demonstrates No No Definite Machado To Suggest Pseudocyst Nor Abscess At This Point.. The Pancreatic Parenchyma Is Mildly Edematous But Enhances Fairly Homogeneous Fashion With No Pancreatic Mass Lesions Identified Spleen: unremarkable adrenals: unremarkable ----gu Tract -- kidneys/ureters: NO significant Findings. Right Kidney: Suggestion Of A Tiny 2 Mm Calculus Upper Pole-nonobstructive Pelvis: No Free Fluid No Adnexal Masses. Small Uterus Bladder: unremarkable-fairly Empty With No Obvious Stones Or Masses. . ---------Gi Tract Large Bowel: Colonic Diverticulosis. Scattered Diverticuli Throughout Colon Most Numerous At Sigmoid And Descending Colon. No Acute Diverticulitis. Upper Normal Wall Thickness Transverse Colon Most Likely Reflecting Lack Of Distension Stomach But Moderate Fluid But Duodenum. Hazy, Fat Stranding Surrounding The 2nd And 3rd Portions Of The Duodenum Most Likely Reflect Adjacent Pancreatitis Features. There May Be Some Mild Wall Thickening At The 2nd And 3rd Portion Of The Duodenum, Reflecting The Same.. Although Possibly Could Reflect Duodenitis. Small-bowel: nondistended. Perhaps Slight Increased Fluid Throughout Small Bowel.--may Reflect A Mild Ileus But No Significant Bowel Dilatation Appendix No Good Evidence Of Appendicitis.. I Would Note Appendix Upper Normal Caliber In Some Areas, With Fluid Throughout Appendix, But No Enhancing Wall Or Inflammation Otherwise. Peritoneum: . No Free Air. lymph Nodes: no Enlarged Lymph Nodes Apparent. vasculature: minimal Atherosclerotic Calcification Infrarenal Abdominal Aorta. No Aneurysm... Bones: no Acute Features Or Lesions. Degenerative Disc Changes Lower Lumbar Spine: L3/4 With Central Spur And Facet Hypertrophy Yielding Mild Central Canal Stenosis. L4/5 Disc Bulge & Spurring Yielding Foraminal Encroachment Right More So Than Left.facet Hypertrophy.. L5/s1 Bilateral Facet Hypertrophy. Degenerative Disc W
--- NOTE | 2020-07-06 01:48 | HMH.EDGENADL ---
ED Disposition Clinical Impression: Gall stone pancreatitis Disposition: Xfer Short-Term Hosp Condition on Discharge: Fair Instructions: DI for Acute Abdomen Referrals: Alexander Mancilla MD [Primary Care Provider] - - Critical Care Critical Care Time: No Attestation: On 07/06/20, the high probability of a clinically significant, sudden or life threatening deterioration of the following system(s) required my full and direct attention, intervention and personal management. The time I documented below is in addition to time spent performing reported procedures but includes the following listed in this critical care notation. Medical Decision Making - Medical Records Medical records reviewed: Yes: I reviewed the patient's medical records. - Celio Inquiry Pt receiving controlled substance: No Vital Signs: 07/06/20 01:30 07/06/20 02:00 07/06/20 02:30 Temperature 97.3 F L Temperature Source Oral Pulse Rate [Left Radial] 91 H 86 81 Respiratory Rate 18 Blood Pressure [Right Arm] 158/86 H 137/86 130/74 Blood Pressure Mean [Right Arm] 110 103 92 Blood Pressure Source [Right Arm] Automatic Cuff Automatic Cuff Automatic Cuff Blood Pressure Position [Right Arm] Supine Supine Supine 02 Sat by Pulse Oximetry 98 97 99 Oxygen Delivery Method Room Air Room Air Room Air 07/06/20 03:30 Temperature Temperature Source Pulse Rate [Left Radial] 81 Respiratory Rate 16 Blood Pressure [Right Arm] 142/80 H Blood Pressure Mean [Right Arm] 100 Blood Pressure Source [Right Arm] Automatic Cuff Blood Pressure Position [Right Arm] Supine 02 Sat by Pulse Oximetry 99 Oxygen Delivery Method Room Air - Lab Data Lab results reviewed: Yes: I reviewed the patient's lab results. Lab Results 07/06/20 01:45: WBC 18.7 H, RBC 5.61 H, Hgb 14.7, Hct 46.6, MCV 83.1, MCH 26.1 L, MCHC 31.4 L, RDW 15.0, Plt Count 380, MPV 8.0, Neut % (Auto) 86.4 H, Lymph % (Auto) 8.1 L, Moca % (Auto) 4.7, Eos % (Auto) 0.5, Baso % (Auto) 0.4, Neut # (Auto) 16.2 H, Lymph # (Auto) 1.5, Moca # (Auto) 0.9, Eos # (Auto) 0.1, Baso # (Auto) 0.1, Total Counted 100, Neutrophils % (Manual) 84 H, Band Neutrophils % 6.0, Lymphocytes % (Manual) 8 L, Monocytes % (Manual) 2, Toxic Granulation 1+, Platelet Estimate Normal, Hypochromasia 1+ 07/06/20 01:45: Sodium 139, Potassium 4.4, Chloride 98, Carbon Dioxide 26, Anion Gap 19.4 H, BUN 24 H, Creatinine 0.90, Estimated Creat Clear 57, Estimated GFR 61, Est GFR ( Amer) 74, Glucose 198 H, Calcium 10.2, Total Bilirubin 2.0 H, AST 289 H, ALT 111 H, Alkaline Phosphatase 149 H, Troponin I < 0.01, Total Protein 9.1 H, Albumin 5.2 H, Globulin 3.9 H, Albumin/Globulin Ratio 1.3, Lipase 71276 H 07/06/20 01:45: SARS-CoV-2 IgG Ab (Rapid) Negative, SARS-CoV-2 IgM Ab (Rapid) Negative 07/06/20 01:45: Procalcitonin 0.135 07/06/20 01:45: PT 11.7, INR 1.06 07/06/20 02:20: Lactate 2.6 H 07/06/20 03:09: Urine Color Yellow, Urine Appearance Clear, Urine pH 7.0, Ur Specific [place] <= 1.005, Urine Protein Negative, Urine Glucose (UA) Negative, Urine Ketones Negative, Urine Blood Negative, Urine Nitrate Negative, Urine Bilirubin Negative, Urine Urobilinogen 0.2, Ur Leukocyte Esterase Negative, Urine WBC 3-5, Amorphous Sediment Trace Result diagrams: 07/06/20 01:45 07/06/20 01:45 Orders (Tests/Meds): ED MEDICATIONS Generic Name Dose Route Start Last Admin Trade Name Freq PRN Reason Stop Dose Admin Lactated Ringer's 1,000 mls @ 999 mls/hr 07/06/20 03:15 07/06/20 03:09 Lactated Ringer's 1000 Ml Bag IV 07/06/20 04:15 999 mls/hr .Q1H1M JASMIN Administration Discontinued Medications Generic Name Dose Route Start Last Admin Trade Name Freq PRN Reason Stop Dose Admin Belladonna Alkaloids 60 ml 07/06/20 01:47 07/06/20 01:54 Gi Cocktail 60ml Udc PO 07/06/20 01:48 60 ml ONCE ONE Administration Iopamidol 75 ml 07/06/20 03:09 07/06/20 03:10 Iopamidol-370 (76%);100ml Bottle IV 07/06/20 03:10 75 ml ONCE ONE Adm
[2020-07-06 01:55] LABS: Basophils # 0.1 K/mm3 (0-0.2); Basophils % 0.4 % (0.1-2.0); Eosinophils # 0.1 K/mm3 (0.0-0.4); Eosinophils % 0.5 % (0.1-12.0); Hematocrit 46.6 % (37.0-47.0); Hemoglobin 14.7 g/dL (12.2-16.2); Lymphocytes # 1.5 K/mm3 (0.7-4.5); Lymphocytes % 8.1 % (10-50); Mean Corpuscular HGB Conc 31.4 g/dL (31.8-35.4); Mean Corpuscular Hemoglobin 26.1 pg (27.0-31.2); Mean Corpuscular Volume 83.1 fl (81-99); Monocytes # 0.9 K/mm3 (0.1-1.0); Monocytes % 4.7 % (1.7-9.3); Neutrophils # 16.2 K/mm3 (1.8-7.8); Neutrophils % 86.4 % (37.0-80.0); Platelet Count 380 K/mm3 (142-424); Red Blood Count 5.61 M/mm3 (4.20-5.40); White Blood Count 18.7 K/mm3 (4.8-10.8)
--- NOTE | 2020-07-06 01:59 | ECG_ITS ---
APPROVED REPORT Exam: Resting ECG HR:91 bpm ECG Measurements Heart Rate 91 AXES TX 150 P 39 QRSd 82 QRS 18 QT 384 T 50 QTc 472 Conclusion Normal sinus rhythm Normal ECG Electronically signed by : Dejon Hollingsworth, 07/07/2020 07:24:10
[2020-07-06 02:00] VITALS: BP 137/86; PULSE 86; O2SAT 97
[2020-07-06 02:02] LABS: MANUAL DIFFERENTIAL MANUAL DIFFERENTIAL (MANUAL DIFF)
[2020-07-06 02:04] LABS: Chloride 98 mmol/L (98-107); Potassium 4.4 mmoL/L (3.5-5.1); Sodium 139 mmol/L (136-145)
[2020-07-06 02:06] LABS: Alanine Aminotransferase 111 U/L (12-78); Aspartate Amino Transferase 289 U/L (14-36); Blood Urea Nitrogen 24 mg/dl (7-17); Creatinine Clearance Estimated 57 mL/min (50-200); Estimated Glomerular Filt Rate 61 ml/min (>60); GFR (African American) 74 ML/MIN (>60)
[2020-07-06 02:07] LABS: Albumin Level 5.2 g/dl (3.5-5.0); Albumin/Globulin Ratio 1.3 (1.1-1.8); Alkaline Phosphatase 149 U/L (38-126); Anion Gap 19.4 mEq/L (5-15); Calcium 10.2 mg/dl (8.4-10.2); Carbon Dioxide 26 mmol/L (22.0-30.0); Globulin 3.9 g/dL (1.3-3.2); Glucose 198 mg/dl (74-100); Total Protein,Serum 9.1 g/dl (6.3-8.2)
[2020-07-06 02:17] LABS: Lymphocytes % 8 % (10-50); Monocytes % 2 % (2-9); Neutrophils % 84 % (42-76); Total Cells Counted 100
[2020-07-06 02:18] LABS: Hypochromasia 1+; Platelet Estimate Normal; Toxic Granulation 1+
[2020-07-06 02:24] LABS: Troponin I < 0.01 ng/ml (0.00-0.034)
[2020-07-06 02:30] VITALS: BP 130/74; PULSE 81; O2SAT 99
[2020-07-06 02:31] LABS: Coronavirus 19 IgG Antibody Negative (Negative); Coronavirus 19 IgM Antibody Negative (Negative)
[2020-07-06 02:44] LABS: Lactic Acid 2.6 mmol/L (0.7-2.1)
[2020-07-06 02:47] LABS: Lipase 11628 U/L (23-300)
[2020-07-06 03:13] LABS: Procalcitonin 0.135 ng/mL (0.0-2.0)
[2020-07-06 03:19] LABS: Microscopic, Urine URINE MICROSCOPIC (MICROSCOPIC)
[2020-07-06 03:23] LABS: Appearance,Urine CLEAR (Clear); Bilirubin,Urine Negative (Negative); Blood, Urine Negative (Negative); Color,Urine YELLOW (Yellow); Glucose,Urine (UA) Negative (Negative); Ketones,Urine Negative (Negative); Leukocyte Esterase,Urine Negative (Negative); Nitrate,Urine Negative (Negative); Protein,Urine Negative (Negative); Specific Gravity, Urine <= 1.005 (1.005-1.030); Urobilinogen,Urine 0.2 EU/dl (0.2)
--- NOTE | 2020-07-06 03:24 | PC.NURSE ---
Paging [facility] at this time
[2020-07-06 03:27] LABS: INR 1.06 (0.9-1.1); Prothrombin Time 11.7 seconds (9.4-11.8)
[2020-07-06 03:30] VITALS: BP 142/80; PULSE 81; RESP 16; O2SAT 99
--- NOTE | 2020-07-06 03:30 | PC.NURSE ---
Dr Arias speaking with Dr Gagnon with [facility] for transfer
[2020-07-06 03:31] LABS: Amorphous Sediment,Urine Trace /lpf
--- NOTE | 2020-07-06 03:32 | PC.NURSE ---
Pt is accepted to [facility] by
--- NOTE | 2020-07-06 03:50 | PC.NURSE ---
Report called to VERENA Davidson at ED
[2020-07-06 04:07] VITALS: BP 157/79; PULSE 82; RESP 16; TEMP 36.6; O2SAT 99
== END 2020-07-06 04:13 | disposition short-term general hospital (02) ==
PROVIDERS: Emergency Provider Physician Assistant; PCP Emergency Medicine
DX: K85.10 Biliary acute pancreatitis without necrosis or infection (principal); Z01.84 Encounter for antibody response examination; I25.10 Atherosclerotic heart disease of native coronary artery without angina pectoris; E78.5 Hyperlipidemia, unspecified; I10 Essential (primary) hypertension; R73.9 Hyperglycemia, unspecified; F41.8 Other specified anxiety disorders; Z79.899 Other long term (current) drug therapy
CPT/HCPCS: 71045; 74177; 80053; 81001; 83605; 83690; 84145; 84484; 85007; 85025; 85610; 86328; 87040; 93005; 96365; 96375; 99284; J2405; Q9967

== ENCOUNTER → 2020-09-01 13:34 | Outpatient (CLI) | payer MEDICARE, OTHER, SELFPAY ==
[2020-09-01 15:06] LABS: Basophils % 0.3 % (0.1-2.0); Eosinophils # 0.3 K/mm3 (0.0-0.4); Eosinophils % 3.1 % (0.1-12.0); Hematocrit 39.2 % (37.0-47.0); Hemoglobin 12.2 g/dL (12.2-16.2); Lymphocytes # 1.8 K/mm3 (0.7-4.5); Lymphocytes % 22.5 % (10-50); Mean Corpuscular HGB Conc 31.1 g/dL (31.8-35.4); Mean Corpuscular Volume 83.5 fl (81-99); Mean Platelet Volume 8.7 fl (7.4-10.4); Monocytes # 0.5 K/mm3 (0.1-1.0); Monocytes % 6.2 % (1.7-9.3); Neutrophils # 5.5 K/mm3 (1.8-7.8); Neutrophils % 67.8 % (37.0-80.0); Platelet Count 379 K/mm3 (142-424); Red Cell Distribution Width 15.7 % (11.5-17.5); White Blood Count 8.1 K/mm3 (4.8-10.8)
[2020-09-01 15:14] LABS: Alanine Aminotransferase 12 U/L (12-78); Albumin Level 4.4 g/dl (3.5-5.0); Albumin/Globulin Ratio 1.3 (1.1-1.8); Alkaline Phosphatase 123 U/L (38-126); Anion Gap 16.4 mEq/L (5-15); Aspartate Amino Transferase 22 U/L (14-36); Bilirubin,Total 0.4 mg/dl (0.2-1.3); Blood Urea Nitrogen 19 mg/dl (7-17); Calcium 9.7 mg/dl (8.4-10.2); Carbon Dioxide 28 mmol/L (22.0-30.0); Chloride 100 mmol/L (98-107); Chol/HDL Ratio 5.4 (1-3.5); Cholesterol 156 mg/dl (140-200); Estimated Glomerular Filt Rate 82 ml/min (>60); GFR (African American) 99 ML/MIN (>60); Globulin 3.4 g/dL (1.3-3.2); Glucose 150 mg/dl (74-100); HDL Cholesterol 29 mg/dl (40-60); Potassium 4.4 mmoL/L (3.5-5.1); Sodium 140 mmol/L (136-145); Total Protein,Serum 7.8 g/dl (6.3-8.2)
[2020-09-01 15:22] LABS: Triglycerides 613 mg/dl (30-150)
[2020-09-01 15:25] LABS: Direct LDL Cholesterol 49.12 mg/dL (100-129)
[2020-09-01 15:27] LABS: Hemoglobin A1C 6.3 % (4.0-6.0)
[2020-09-01 15:30] LABS: Free T4 (Free Thyroxine) 1.05 ng/dl (0.78-2.19)
[2020-09-01 15:31] LABS: 25-OH Vitamin D, Total 18.2 ng/mL (30-100)
[2020-09-01 15:45] LABS: Thyroid Stimulating Hormone 2.26 uIU/mL (0.465-4.68)
[2020-09-01 16:30] LABS: Erythrocyte Sedimentation Rate 26 mm/hr (0-30)
== END ==
PROVIDERS: Visit Provider Emergency Medicine
DX: E11.9 Type 2 diabetes mellitus without complications (principal); E55.9 Vitamin D deficiency, unspecified; Z79.84 Long term (current) use of oral hypoglycemic drugs
CPT/HCPCS: 80053; 80061; 82306; 83036; 84439; 84443; 85025; 85651

== ENCOUNTER → 2020-09-11 13:29 | Outpatient (CLI) | payer MEDICARE, OTHER, SELFPAY ==
--- NOTE | 2020-09-11 13:39 | US_ITS ---
PROCEDURE: US BREAST LT COMPLETE CLINICAL INDICATION: LT AXILLA MASS COMPARISON: MG MM DIG SCREENING MAMM BI W/CAD from 09/11/2020 FINDINGS: Evaluation of the left breast shows no cystic or solid lesions apparent. Palpable areas are reported in the left axilla. There are 4 nodes demonstrated in the left axilla the largest is 2.4 by 0.7 cm. These have normal lymph node morphology. No abscess demonstrated. IMPRESSION: Palpable nodules in the left axilla correspond to mildly prominent lymph nodes. Dictated by: Nirav Mann MD 09/19/2020 14:34 Nirav Mann MD in [facility] 09/19/2020 14:34
--- NOTE | 2020-09-11 13:42 | CT_ITS ---
PROCEDURE: CT HEAD/BRAIN WO CON CLINICAL INDICATION: headache Headaches and dizziness COMPARISON: CT HDWO CT HEAD W/O CONTRAST from 04/03/2016 TECHNIQUE: Axial images obtained. All CT scans at the facility use one or more dose reduction, viz: automated exposure control, ma/kV adjustment per patient size (including targeted exams where dose is matched to indication, i.e. head), or iterative reconstruction technique. FINDINGS: No midline shift, mass effect, intracranial hemorrhage, hydrocephalus, or extra-axial fluid collection is evident. There is generalized atrophy with hypoattenuation of the periventricular white matter consistent with microangiopathic changes. The calvarium has an unremarkable appearance. No mastoid effusion. No sinus air-fluid level. IMPRESSION: No acute intracranial finding Dictated by: Nirav Mann MD 09/11/2020 17:25 Nirav Mann MD in [facility] 09/11/2020 17:25
--- NOTE | 2020-09-11 13:42 | MM_ITS ---
PROCEDURE: MM DIG SCREENING MAMM BI W/CAD Digital Breast Tomosynthesis Included CLINICAL INDICATION: screening There is no personal or family history of breast cancer. There has been a previous biopsy left breast for benign disease. The patient currently complains of left axillary pain. COMPARISON: MG DMSB DIG MAMM-SCREEN JOANNE W/CAD from 06/16/2017 MG SCBI MM Dig screening mamm BI w/CAD from 07/10/2018 MG DIG MAMM-DX UNI-LT from 01/31/2019 MG MM DIG SCREENING MAMM BI W/CAD from 07/23/2019 TECHNIQUE: Standard CC and MLO images and 3D Tomosynthesis was obtained. R2 CAD reviewed. FINDINGS: The breasts are composed primarily of fat. Minimal glandular elements are seen in the subareolar regions bilaterally. Again noted is asymmetrically increased glandular elements subareolar region left breast when compared to the right but this is stable and unchanged from previous exams. There is a biopsy clip left breast. There is no suspicious lesion and no suspicious microcalcifications. There is small nodes in both axilla. IMPRESSION: Stable exam with no suspicious lesions seen BI-RAD Category: 2 Benign Finding(s) FOLLOW-UP: 1YR 1 Year Follow-up (A letter has been sent to the patient regarding results of the study.) Dictated by: Dr. Aj Lynne MD 09/15/2020 10:06 Dr. Aj Lynne MD in [facility] 09/15/2020 10:06
--- NOTE | 2020-09-11 13:55 | CT_ITS ---
PROCEDURE: CT SINUS WO CON CLINICAL HISTORY: headache COMPARISON: CT CT SINUS WO CON from 08/06/2019 TECHNIQUE: Axial images obtained with sagittal and coronal reformats. All CT scans at the facility use one or more dose reduction, viz: automated exposure control, ma/kV adjustment per patient size (including targeted exams where dose is matched to indication, i.e. head), or iterative reconstruction technique. FINDINGS: The paranasal sinuses show no evidence of significant mucosal thickening or air-fluid levels. The ostiomeatal units are patent. There is a small right lalit bullosa. Osteoarthritic changes are present involving the right temporomandibular joint. Orbits have an unremarkable appearance. No mastoid effusion. No sinus air-fluid level. IMPRESSION: No acute finding CT sinuses Osteoarthritic change right TMJ Dictated by: Nirav Mann MD 09/11/2020 17:27 Nirav Mann MD in [facility] 09/11/2020 17:27
== END ==
PROVIDERS: PCP Emergency Medicine; Visit Provider Emergency Medicine
DX: R51.9 Headache, unspecified (principal); Z12.31 Encounter for screening mammogram for malignant neoplasm of breast; N63.32 Unspecified lump in axillary tail of the left breast
CPT/HCPCS: 70450; 70486; 76641; 77063; 77067

== ENCOUNTER → 2020-10-09 08:49 | Outpatient (CLI) | payer MEDICARE, OTHER, SELFPAY ==
--- NOTE | 2020-10-09 08:51 | CA_ITS ---
APPROVED REPORT Program Manager Environmental Planning: Kira Gill RVT Laterality: Bilateral Study Quality: Good Indications: dizziness Risk Factors Hyperlipidemia Doppler Spectral Velocity Analysis ECA (R) 61.50/11.90 cm/s ECA (L) 113.00/19.50 cm/s dICA (R) 113.00/34.80 cm/s dICA (L) 69.50/30.20 cm/s Luz Maria (R) 97.10/25.90 cm/s Luz Maria (L) 70.30/23.20 cm/s pICA (R) 71.20/27.40 cm/s pICA (L) 56.60/22.00 cm/s dCCA (R) 46.70/13.30 cm/s dCCA (L) 57.40/16.10 cm/s pCCA (R) 89.60/20.40 cm/s pCCA (L) 80.80/18.50 cm/s Vert (R) 44.50/15.60 cm/s Vert (L) 63.50/20.10 cm/s ICA/CCA 2.42 ICA/CCA 1.22 Findings Study suggests less than 20% stenosis of the bilateral internal cartoid arteries. Antegrade flow seen bilateral vertebral arteries. Conclusion Study suggests less than 20% stenosis of the bilateral internal cartoid arteries. Antegrade flow seen bilateral vertebral arteries. Electronically signed by : Nirav Mann MD 10/09/2020 19:00:11
== END ==
PROVIDERS: PCP Emergency Medicine; Visit Provider Emergency Medicine
DX: R42 Dizziness and giddiness (principal)
CPT/HCPCS: 93880

== ENCOUNTER → 2020-10-22 15:58 | Outpatient (CLI) | payer MEDICARE, OTHER, SELFPAY | PROVIDERS: PCP Emergency Medicine; Visit Provider Emergency Medicine | DX: R00.2 Palpitations (principal) | CPT/HCPCS: 93225; 93226 ==

== ENCOUNTER → 2021-01-19 16:05 | Outpatient (CLI) | payer MEDICARE, SELFPAY | PROVIDERS: Visit Provider Podiatrist | DX: Z51.89 Encounter for other specified aftercare (principal); M79.674 Pain in right toe(s); B35.1 Tinea unguium | CPT/HCPCS: 87070; 87077; 87186; 87205 ==

== ENCOUNTER → 2021-01-21 15:52 | Outpatient (CLI) | payer MEDICARE, SELFPAY | PROVIDERS: Visit Provider Internal Medicine Gastroenterology | DX: Z01.812 Encounter for preprocedural laboratory examination (principal); Z20.822 Contact with and (suspected) exposure to COVID-19; Z12.11 Encounter for screening for malignant neoplasm of colon | CPT/HCPCS: U0003 ==

== ENCOUNTER 2021-01-23 07:22 | Day surgery (SDC) | payer MEDICARE, OTHER, SELFPAY ==
[2021-01-15 09:28] VITALS: BMI 26.6
[2021-01-23] VITALS (7 sets, daily range): BP systolic 95–125; BP diastolic 52–72; PULSE 70–78; RESP 18; TEMP 36.4–36.7; O2SAT 97–99
--- NOTE | 2021-01-23 07:59 | P.PN_ITS ---
[facility] Anesthesia Checklist - Patient Identification Patient Identification: Arm Band - Structural Data Admitted From: Home Planned Operative Procedure/s: Colonoscopy Consent for Planned Operative Procedure(s) Verified: Yes - NPO Status Verified Time NPO: 00:00 - Additional verifications Anesthesia Reactions: No Hx Blood Transfusions: No Blood Transfusion Reaction: No - Airway Assessment C-Spine Mobility Assessed: Yes TMJ Mobility Assessed: Yes Dentition: Poor Dentition (Missing) - Neurological Assessment Level of Consciousness: Awake - Anesthesia Plan Anesthesia Risk discussed: Yes Anesthesia Plan: Verified ASA Class: III Anesthesia Type: MAC [facility] History I have reviewed the patient's past medical history: Yes Medical History: Reports:: Anxiety, Coronary Artery Disease, Depression, Diabete s Mellitus Type 2, Hyperlipidemia, Hypertension, Palpitations Denies:: Cancer, Diabetes Mellitus Type 1, Internal Pacemaker, MRSA, Seizures *Have you ever received a pneumonia vaccine?: Yes *Have you received a flu vaccine this season?: No Other Medical History: Reports: Arthritis, Thyroid Disease. Denies: Blood Transfusion Reaction Anesthesia experience/problems:: None Laterality Cases: Right: Carpal Tunnel Release, Bilateral: Tonsillectomy Other Surgeries: Yes: No Previous Surgery, Cardiac Catheterization, Cardiac Surgery, Cholecystectomy, Colonoscopy, Colostomy, EGD, Sinus Surgery, Other. No: Pacemaker Amputation: No Fractures: No - *Social History Last grade of school completed: High school graduate Smoking Status: Never smoker Alcohol Intake: never Substance Use Type: denies use *Occupational Status:: retired Housing: house Household Members: none *Travel in the last 8 weeks: None - Psychiatric History Pschychiatric History:: Reports:: Anxiety, Depression Family Hx:: Hyperlipidemia, Hypertension, Thyroid Disorder, Tuberculosis, Mental illness
[2021-01-23 08:03] LABS: POC Glucose,Bedside 119 (70-110)
--- NOTE | 2021-01-23 08:32 | P.PCN_ITS ---
[facility] Procedure Note Procedure Note:: Colonoscopy Procedure Report: Colonoscopy with cold biopsies and cold snare polypectomy Endoscopist: Ernesto Beaulieu II, MD Referring physician: Alexander Mancilla MD Date of Procedure: January 23, 2021 Equipment: Olympus 190 variable stiffness pediatric colonoscope Sedation: MAC sedation Indication: Mrs. Emery is a 75-year-old female with chronic diarrhea. She states that this possibly worsened some after her bout of acute cholecystitis and cholecystectomy which was performed at the [facility]. At that time, she had choledocholithiasis and possible gallstone pancreatitis but did not have an ERCP. Presently, she has a moderate amount of lower abdominal pain and discomfort. She reports gassiness and bloating. She has had some minor weight loss (5 pounds). She reports no rectal bleeding or family history of colon cancer. She does have bowel urgency and some frequency but reports no incontinence. Most of the time, her bowel movements are watery. Her last colonoscopy was approximately 5 years ago (Dr. Tim Quarles). A couple of years ago she did have significant constipation but this has completely changed. Her hemoglobin and hematocrit in August 2020 was normal at 12.2 and 39.2 respectively. Procedure: Prior to the procedure, a history and physical exam was performed, and patient's medications and allergies were reviewed. The risks, benefits and alternatives of the sedation and procedure were discussed with the patient. All questions were answered and informed consent was obtained. The patient was brought to the procedure room. Patient identification and proposed procedure were verified by the physician and the nurse. The patient was placed in a left lateral decubitus position and the scope was passed under direct vision. Throughout the procedure, the patient's blood pressure, pulse, and oxygen saturations were monitored continuously. The colonoscopy was accomplished without difficulty. The patient tolerated the procedure well. Findings: On digital rectal examination there was normal rectal tone. There were no external hemorrhoids. The colonoscope was introduced through the anal canal to the rectum and advanced to the cecum. The ileocecal valve and appendiceal orifice were identified. The scope was advanced a short distance into the ileum which appeared grossly normal. The scope was then withdrawn into the colon. The cecum, ascending and transverse colon and mucosa were grossly normal. Cold biopsies were taken from the right colon to rule out microscopic colitis. There was a 5 mm polyp in the descending colon removed via cold snare polypectomy. There were extensively scattered diverticuli throughout the colon but more predominantly in the descending and sigmoid colon (LEFT colon). The rectum itself was normal. Upon retroflexion within the rectum there were grade 1-2 internal hemorrhoids. The preparation was excellent throughout with [place] Preparation Score of 9. The cecal time was 12 minutes. Impression: 1. Diminutive descending colon polyp 2. Extensive pandiverticulosis 3. Grade 1-2 internal hemorrhoids Plan: The patient will not require any further preventive/surveillance colonoscopy. I will follow-up the biopsies to rule out microscopic colitis. If she does have microscopic colitis, I would initiate budesonide. If the biopsies are normal, I will consider treatment with antispasmodic (Levsin by mouth before meals and bedtime) and/or a bile acid binding agent (Colestid). Additionally, I would recommend dietary measures, bulking fiber supplementation and possibly IBgard.
== END 2021-01-23 09:30 | disposition home or self-care (01) ==
PROVIDERS: PCP Emergency Medicine; Visit Provider Internal Medicine Gastroenterology
PROC: 0DJD8ZZ Inspection of Lower Intestinal Tract, Via Natural or Artificial Opening Endoscopic (ICD-10-PCS; CPT 45378; principal; 2021-01-23 08:30)
DX: K63.5 Polyp of colon (principal); K64.0 First degree hemorrhoids; Z87.19 Personal history of other diseases of the digestive system; I25.10 Atherosclerotic heart disease of native coronary artery without angina pectoris; E11.9 Type 2 diabetes mellitus without complications; E78.5 Hyperlipidemia, unspecified; I10 Essential (primary) hypertension; F41.9 Anxiety disorder, unspecified; F32.9 Major depressive disorder, single episode, unspecified; R00.2 Palpitations; M19.90 Unspecified osteoarthritis, unspecified site; E07.9 Disorder of thyroid, unspecified
CPT/HCPCS: 45380; 45385; 82962; 88305

== ENCOUNTER → 2021-02-16 16:43 | Outpatient (CLI) | payer MEDICARE, SELFPAY | PROVIDERS: Visit Provider Podiatrist | DX: B35.1 Tinea unguium (principal); M79.674 Pain in right toe(s) | CPT/HCPCS: 87102; 87206; 88304; 88305; 88312 ==

== ENCOUNTER → 2021-03-17 16:56 | Outpatient (CLI) | payer MEDICARE, SELFPAY ==
[2021-03-17 18:49] LABS: Hemoglobin A1C 6.1 % (4.0-6.0)
== END ==
PROVIDERS: Visit Provider Emergency Medicine
DX: E11.9 Type 2 diabetes mellitus without complications (principal); Z79.84 Long term (current) use of oral hypoglycemic drugs
CPT/HCPCS: 36415; 83036

== ENCOUNTER 2021-05-22 17:19 | Emergency (ER) | payer MEDICARE, OTHER, SELFPAY ==
[2021-05-22 17:20] VITALS: BP 130/66; PULSE 82; RESP 18; TEMP 36.3; O2SAT 99; BMI 27.4
--- NOTE | 2021-05-22 17:21 | CT_ITS ---
PROCEDURE INFORMATION: Exam: CT Head Without Contrast Exam date and time: 05/22/2021 5:21 PM Age: 75 years old Clinical indication: Injury or trauma; Fall; Blunt trauma (contusions or hematomas); Additional info: Fall, now PT very confused TECHNIQUE: Imaging protocol: Computed tomography of the head without contrast. 3D rendering (Not supervised by radiologist): MIP and/or 3D reconstructed images were created by the technologist. Radiation optimization: All CT scans at this facility use at least one of these dose optimization techniques: automated exposure control; mA and/or kV adjustment per patient size (includes targeted exams where dose is matched to clinical indication); or iterative reconstruction. COMPARISON: CT HEAD/BRAIN WO CON 09/11/2020 2:24 PM FINDINGS: Brain: Age-related atrophy and chronic white matter ischemic changes, with no evidence of an acute intracranial abnormality. No hemorrhage, mass effect or midline shift. Cerebral ventricles: No ventriculomegaly. Paranasal sinuses: Visualized sinuses are unremarkable. No fluid levels. Mastoid air cells: Visualized mastoid air cells are well aerated. Bones/joints: No acute fracture. Soft tissues: No acute changes IMPRESSION: 1. Age-related atrophy and chronic white matter ischemic changes, with no evidence of an acute intracranial abnormality. 2. No hemorrhage, mass effect or midline shift.
--- NOTE | 2021-05-22 17:21 | CT_ITS ---
PROCEDURE INFORMATION: Exam: CT Cervical Spine Without Contrast Exam date and time: 05/22/2021 5:21 PM Age: 75 years old Clinical indication: Injury or trauma; Fall; Blunt trauma; Additional info: Fall, now PT very confused TECHNIQUE: Imaging protocol: Computed tomography images of the cervical spine without contrast. Radiation optimization: All CT scans at this facility use at least one of these dose optimization techniques: automated exposure control; mA and/or kV adjustment per patient size (includes targeted exams where dose is matched to clinical indication); or iterative reconstruction. COMPARISON: [facility] CT CERVICAL SPINE W/O CONT 04/03/2016 5:23 PM FINDINGS: Bones/joints: The facet joints demonstrate mild degenerative hypertrophy and sclerosis. There is no evidence of acute fracture. Discs/Spinal canal/Neural foramina: The cervical spine demonstrates mild degenerative changes at multiple levels. Lungs: Lung apices are normal. Soft tissues: There are no soft tissue masses or fluid collections. IMPRESSION: 1. The cervical spine demonstrates mild degenerative changes at multiple levels. 2. No evidence of acute fracture.
--- NOTE | 2021-05-22 17:21 | XR_ITS ---
PROCEDURE INFORMATION: Exam: XR Bilateral Hips Exam date and time: 05/22/2021 5:21 PM Age: 75 years old Clinical indication: Injury or trauma; Fall; Blunt trauma (contusions or hematomas); Bilateral; Hip TECHNIQUE: Imaging protocol: XR bilateral hips. Views: 2 views of hips with pelvis when performed. COMPARISON: CT ABDOMEN PELVIS W CON 07/06/2020 2:42 AM FINDINGS: Bones/joints: Osteopenia. No acute fracture or dislocation. There are no lytic skeletal lesions seen. Degenerative pelvic enthesophytes, and enthesophytes of the greater trochanters of the femurs. Very mild degenerative narrowing of the hip joint spaces. Tiny degenerative calcification along the lateral margin of the right acetabulum. Bilateral sacroiliitis. Prominent lower lumbar degenerative changes, please see the lumbar spine CT report for detailed lumbar findings. Soft tissues: No acute findings in the soft tissues.No radiopaque foreign bodies seen. No soft tissue emphysema. IMPRESSION: 1. No acute fracture or dislocation. 2. Osteopenia. 3. Lumbosacral degenerative changes, please see the lumbar spine CT report for details. 4. Mild degenerative changes at the hip joints.
--- NOTE | 2021-05-22 17:21 | CT_ITS ---
PROCEDURE INFORMATION: Exam: CT Lumbar Spine Without Contrast Exam date and time: 05/22/2021 5:21 PM Age: 75 years old Clinical indication: Injury or trauma; Fall; Blunt trauma (contusions or hematomas); Additional info: Fall, C/O low back pain TECHNIQUE: Imaging protocol: Computed tomography images of the lumbar spine without contrast. Radiation optimization: All CT scans at this facility use at least one of these dose optimization techniques: automated exposure control; mA and/or kV adjustment per patient size (includes targeted exams where dose is matched to clinical indication); or iterative reconstruction. COMPARISON: CR SPLUMBLM XR lumbar spine 2-3V 09/26/2018 2:20 PM FINDINGS: Vertebrae: Osteopenia. No acute fracture or significant listhesis.There are no lytic skeletal lesions seen. Straightening of lumbar lordosis suggests muscle spasm. L1-L2: The disc is minimally narrowed. Very mild spondylosis. Left lateral/intraforaminal disc protrusion moderately narrowing the foramen axial series 4, image 30 and sagittal series 602, image 30. The central spinal canal is minimally narrowed by bulging disc and mild facet hypertrophy. The right neural foramen remains ample. L2-L3: Prominent anterior spondylosis. Mild bilateral facet hypertrophy. Shallow posterior disc bulging. Central spinal canal and neural foramina are mildly narrowed. L3-L4: Degenerated disc with vacuum phenomenon, prominent spondylosis. A posterior disc-osteophyte complex indents the thecal sac. Prominent bilateral facet hypertrophy and ligamentum flavum thickening. Moderately severe central spinal stenosis, small triangular configuration of the thecal sac series 4, images 55-56. L3 foramina are narrowed, mild on the right and moderate on the left. L4-L5: The disc is severely desiccated, degenerated and narrowed worse toward the right with prominent right anterolateral osteophytes. There is broad posterior disc bulging indenting the thecal sac. There is bilateral facet arthropathy and ligamentum flavum thickening right greater than left. There is at least moderate stenosis of the central spinal canal series 4, image 67. Both L4 foramina are narrowed, at least moderate on the right and mild on the left. L5-S1: The disc is severely desiccated and narrowed with vacuum phenomenon throughout. Prominent degenerative spondylosis. Broad posterior disc bulge indenting the thecal sac. Bilateral facet arthropathy. The central spinal canal is mild to moderately narrowed. The L5 foramina are stenosed, this appears moderately severe on the left, with likely lateral nerve impingement, and moderate on the right. Other bones/joints: Visualized ribs appear intact. Kidneys and ureters: A tiny nonobstructing right renal calculus. No hydronephrosis, hydroureter, or obstructing calcified ureteral stone as visualized. Vasculature: The vasculature demonstrates scattered mild atherosclerotic calcification. There is no aortic aneurysm. Soft tissues: There are no soft tissue masses or fluid collections. Sacroiliac joints: Bilateral sacroiliitis, with gas-filled subcortical cystic changes/vacuum phenomenon along the inferior joints. IMPRESSION: 1. No acute fracture or significant listhesis. 2. Lumbar muscle spasm. 3. Prominent multilevel degenerative disc disease, spondylosis, and facet arthropathy as detailed above. 4. Degenerative central spinal stenosis appears moderately severe L3-L4, moderate at L4-L5 and mild to moderate L5-S1. 5. Degenerative foraminal stenoses, greatest at the left L5, right L4 , and left L1 foramina as detailed above, with likely nerve impingement, correlate
--- NOTE | 2021-05-22 17:29 | PC.NURSE ---
pt to CT
--- NOTE | 2021-05-22 17:48 | HMH.EDFALL ---
ED Disposition Clinical Impression: Concussion without loss of consciousness Qualifiers: Encounter type: initial encounter Qualified Code(s): S06.0X0A - Concussion without loss of consciousness, initial encounter Disposition: Home, Self-Care Condition on Discharge: Good Instructions: How to Prevent Falls Referrals: Alexander Mancilla MD [Primary Care Provider] - - Critical Care Critical Care Time: No Attestation: On 05/22/21, the high probability of a clinically significant, sudden or life threatening deterioration of the following system(s) required my full and direct attention, intervention and personal management. The time I documented below is in addition to time spent performing reported procedures but includes the following listed in this critical care notation. Medical Decision Making - Medical Records Medical records reviewed: Yes: I reviewed the patient's medical records. - Celio Inquiry Pt receiving controlled substance: No Vital Signs: 05/22/21 17:20 05/22/21 17:59 Temperature 97.4 F L Temperature Source Oral Pulse Rate 74 Pulse Rate [Right Radial] 82 Respiratory Rate 18 17 Blood Pressure 129/66 Blood Pressure [Right Arm] 130/66 Blood Pressure Mean 87 Blood Pressure Mean [Right Arm] 87 Blood Pressure Source [Right Arm] Automatic Cuff Blood Pressure Position [Right Arm] Sitting 02 Sat by Pulse Oximetry 99 95 Oxygen Delivery Method Room Air Orders (Tests/Meds): ED MEDICATIONS Discontinued Medications Generic Name Dose Route Start Last Admin Trade Name Freq PRN Reason Stop Dose Admin Ondansetron HCl 4 mg 05/22/21 17:56 05/22/21 17:57 Ondansetron 4mg Odt SL 05/22/21 17:57 4 mg ONCE ONE Administration - Radiology Data #1 Image(s): Pelvis, Hip Image Reviewed: Yes I reviewed the patient's radiology results, Yes I reviewed the patient's radiology image, Yes I have reviewed radiologist's interpretation IMPRESSION: 1. No acute fracture or dislocation. 2. Osteopenia. 3. Lumbosacral degenerative changes, please see the lumbar spine CT report for details. 4. Mild degenerative changes at the hip joints. - CT Data CT Scan: Head, C-Spine, L-Spine Time Received: 18:[address] Reviewed: Yes: I have reviewed the patient's CT results, I have viewed the radiologist's interpretation Findings Narrative: IMPRESSION: 1. No acute fracture or significant listhesis. 2. Lumbar muscle spasm. 3. Prominent multilevel degenerative disc disease, spondylosis, and facet arthropathy as detailed above. 4. Degenerative central spinal stenosis appears moderately severe L3-L4, moderate at L4-L5 and mild to moderate L5-S1. 5. Degenerative foraminal stenoses, greatest at the left L5, right L4 , and left L1 foramina as detailed above, with likely nerve impingement, correlate for radiculopathy. 6. Nonobstructing right renal calculus. 7. Additional nonemergency and chronic findings as above. IMPRESSION: 1. Age-related atrophy and chronic white matter ischemic changes, with no evidence of an acute intracranial abnormality. 2. No hemorrhage, mass effect or midline shift. IMPRESSION: 1. The cervical spine demonstrates mild degenerative changes at multiple levels. 2. No evidence of acute fracture. - Reevaluation(s) Time: 18:39 Reevaluation #1: On reevaluation, the patient seems to be doing much better. She is remembering more of the event. CT scan did not show any acute intracranial abnormality. Repeat neurologic exam is normal. Symptoms consistent with closed head injury. Patient is to refrain from any contact exercises and driving until she is cleared by PCP. Given strict return precautions. Verbalized understanding. Medical Decision Narrative: 75-year-old female presented to the emergency department after an axonal fall. Patient is slightly confused and anxious on initial examination. She states that she just does not feel right. I do
[2021-05-22 17:59] VITALS: BP 129/66; PULSE 74; RESP 17; O2SAT 95
[2021-05-22 18:30] VITALS: BP 109/58; PULSE 71; RESP 16; O2SAT 95
[2021-05-22 19:16] LABS: Microscopic, Urine URINE MICROSCOPIC (MICROSCOPIC)
--- NOTE | 2021-05-22 19:19 | PC.NURSE ---
late entry: pt reports frequent urination, pt was needing to use the restroom, states she has been taking AZO r/t frequent urination in the past couple days. Obtained verbal order from ER MD for u/a. Urine specimen sent to lab for analysis
[2021-05-22 19:26] LABS: Appearance,Urine SL CLOUDY (Clear); Bilirubin,Urine Negative (Negative); Blood, Urine Negative (Negative); Color,Urine YELLOW (Yellow); Glucose,Urine (UA) Negative (Negative); Ketones,Urine Negative (Negative); Leukocyte Esterase,Urine Negative (Negative); Nitrate,Urine Negative (Negative); PH,Urine 5.5 (5.0-8.5); Protein,Urine Negative (Negative); Specific Gravity, Urine 1.025 (1.005-1.030); Urobilinogen,Urine 0.2 EU/dl (0.2)
[2021-05-22 19:35] LABS: Bacteria,Urine Trace /lpf; Squamous Epithelial Cell,Urine Occasional #/hpf (0-5); WBC,Urine Occasional #/hpf (0-3)
[2021-05-22 19:50] VITALS: BP 115/60; PULSE 72; RESP 20; TEMP 36.9; O2SAT 96
== END 2021-05-22 20:00 | disposition home or self-care (01) ==
PROVIDERS: Emergency Provider Emergency Medicine; PCP Emergency Medicine
DX: S06.0X0A Concussion without loss of consciousness, initial encounter (principal); W19.XXXA Unspecified fall, initial encounter; Z79.82 Long term (current) use of aspirin; Z79.899 Other long term (current) drug therapy; Z88.1 Allergy status to other antibiotic agents; Z88.6 Allergy status to analgesic agent; F41.9 Anxiety disorder, unspecified; I25.10 Atherosclerotic heart disease of native coronary artery without angina pectoris; F32.9 Major depressive disorder, single episode, unspecified; E11.9 Type 2 diabetes mellitus without complications; E78.5 Hyperlipidemia, unspecified; I10 Essential (primary) hypertension; R00.2 Palpitations
CPT/HCPCS: 70450; 72125; 72131; 73521; 81001; 99282

== ENCOUNTER → 2021-06-16 13:03 | Outpatient (CLI) | payer MEDICARE, OTHER, SELFPAY ==
--- NOTE | 2021-06-16 13:03 | MR_ITS ---
PROCEDURE: MR CERVICAL SPINE WO CON CLINICAL INDICATION: neck pain COMPARISON: CT CT CERVICAL SPINE WO CON from 05/22/2021 TECHNIQUE: Standard multiplanar multiecho sequences are performed without contrast. 3-D MIP and myelographic images are also rendered and reviewed FINDINGS: There is normal alignment. Craniocervical junction has an unremarkable appearance. C2-C3: Mild right foraminal narrowing from facet hypertrophic change. C3-C4: Moderate left foraminal narrowing from facet and uncovertebral hypertrophy. C4-C5: Moderate left-sided foraminal narrowing from facet hypertrophic change C5-C6: Asymmetric bulging disc eccentric toward the right with annular fissure without cord impingement or contour deformity. There is borderline narrowing of the canal at 11 mm. C6-C7: Unremarkable. C7-T1: Unremarkable. No acute fracture or dislocation. No extruded herniated disc. IMPRESSION: Facet hypertrophic change with mild right foraminal narrowing at C2-C3, moderate left foraminal narrowing at C3-C4, and moderate left foraminal narrowing at C4-C5. Asymmetric bulging disc eccentric toward the right with annular fissure noted at C5-C6 without cord impingement. Borderline canal stenosis at that level. No extruded herniated disc. Dictated by: Nirav Mann MD 06/17/2021 10:21 Nirav Mann MD in [facility] 06/17/2021 10:21
--- NOTE | 2021-06-16 13:03 | MR_ITS ---
PROCEDURE: MR HEAD/BRAIN WO CON CLINICAL INDICATION: headache COMPARISON: CT CT HEAD/BRAIN WO CON from 05/22/2021 TECHNIQUE: Routine multiplanar multi echo sequences are performed without gadolinium enhancement. FINDINGS: No midline shift, mass effect, intracranial hemorrhage, or hydrocephalus. The cerebellopontine angles and cerebellum has an unremarkable appearance. Slight diffuse increased T2 signal involves the joselyn nonspecific and could be due to ischemic gliotic microvascular changes. Scattered small T2 white matter hyperintensities are present. No evidence of acute infarction. The pituitary, optic chiasm, corpus callosum, and craniocervical junction have an unremarkable appearance. No mastoid effusion or sinus air-fluid level. IMPRESSION: No acute intracranial findings. Slight diffuse increased T2 signal of the joselyn and scattered T2 white matter hyperintensities which may be related to microangiopathic changes Dictated by: Nirav Mann MD 06/17/2021 09:57 Nirav Mann MD in [facility] 06/17/2021 09:57
== END ==
PROVIDERS: PCP Emergency Medicine; Visit Provider Emergency Medicine
DX: M54.2 Cervicalgia (principal); W11.XXXA Fall on and from ladder, initial encounter; R51.9 Headache, unspecified
CPT/HCPCS: 70551; 72141; 76376

== ENCOUNTER → 2021-08-18 20:36 | Outpatient (CLI) | payer MEDICARE, SELFPAY ==
[2021-08-18 20:55] LABS: Alanine Aminotransferase 12 U/L (12-78); Albumin Level 4.2 g/dl (3.5-5.0); Albumin/Globulin Ratio 1.5 (1.1-1.8); Alkaline Phosphatase 112 U/L (38-126); Anion Gap 13.7 mEq/L (5-15); Aspartate Amino Transferase 24 U/L (14-36); Bilirubin,Total 0.4 mg/dl (0.2-1.3); Blood Urea Nitrogen 31 mg/dl (7-17); Calcium 9.5 mg/dl (8.4-10.2); Carbon Dioxide 29 mmol/L (22.0-30.0); Chloride 102 mmol/L (98-107); Estimated Glomerular Filt Rate 70 ml/min (>60); GFR (African American) 85 ML/MIN (>60); Globulin 2.8 g/dL (1.3-3.2); Glucose 108 mg/dl (74-100); Potassium 4.7 mmoL/L (3.5-5.1); Sodium 140 mmol/L (136-145)
[2021-08-18 20:59] LABS: Hemoglobin A1C 5.7 % (4.0-6.0)
== END ==
PROVIDERS: Visit Provider Emergency Medicine
DX: E11.9 Type 2 diabetes mellitus without complications (principal); Z79.84 Long term (current) use of oral hypoglycemic drugs
CPT/HCPCS: 80053; 83036

== ENCOUNTER → 2021-09-16 12:57 | Outpatient (CLI) | payer MEDICARE, OTHER, SELFPAY ==
--- NOTE | 2021-09-16 12:58 | MM_ITS ---
PROCEDURE INFORMATION: Exam: MG Bilateral Screening 3D Mammography Exam date and time: 09/16/2021 12:58 PM Age: 75 years old Clinical indication: Encounter for screening mammogram for malignant neoplasm of breast TECHNIQUE: Imaging protocol: Bilateral Screening tomosynthesis and 2D mammography including computer-aided detection (CAD) when performed. COMPARISON: 1. MG MM DIG SCREENING MAMM BI W/CAD 09/11/2020 2:05 PM 2. MG MM DIG SCREENING MAMM BI W/CAD 07/23/2019 3:27 PM 3. MG DIG MAMM-DX UNI-LT 01/31/2019 1:56 PM FINDINGS: MAMMOGRAPHY: Breast composition: The breasts are heterogeneously dense, which may obscure small masses. Mass: No suspicious masses. Architectural distortion: No suspicious distortion. Biopsy clip noted in the 12 o'clock position of the upper left breast. Calcifications: No suspicious calcifications. Asymmetric density: None. Skin thickening: None. Axillary adenopathy: None. IMPRESSION: No mammographic evidence of malignancy. Annual screening is recommended unless otherwise clinically indicated. ASSESSMENT: BI-RADS Category 2: Benign
--- NOTE | 2021-09-16 13:26 | US_ITS ---
FINAL REPORT CLINICAL HISTORY: circulation study, b/l lower extremities, DM, HLD, HTN FINDINGS: ANKLE-BRACHIAL PRESSURE INDICES Pressure indices are as follows: RIGHT LOWER EXTREMITY: Ankle-brachial pressure index: 1.28 Comments: Normal LEFT LOWER EXTREMITY: Ankle-brachial pressure index: 1.17 Comments: Normal CONCLUSION: No evidence of significant obstructive peripheral vascular disease of the lower extremities Reviewed, Interpreted and Dictated by Gomez Finley III, MD Transcribed by Judith Jones Authenticated by Gomez Finley III, MD on 09/16/2021 03:23:53 PM [facility]
== END ==
PROVIDERS: PCP Emergency Medicine; Visit Provider Emergency Medicine
DX: Z12.31 Encounter for screening mammogram for malignant neoplasm of breast (principal); R09.89 Other specified symptoms and signs involving the circulatory and respiratory systems
CPT/HCPCS: 77063; 77067; 93923

== ENCOUNTER → 2021-12-02 08:47 | Outpatient (CLI) | payer MEDICARE, OTHER, SELFPAY ==
--- NOTE | 2021-12-02 08:51 | XR_ITS ---
FINAL REPORT CLINICAL HISTORY: hip pain FINDINGS: 2 views of the left hip were obtained. There is no acute fracture or dislocation. There are mild hypertrophic changes at the acetabular margin. The joint spaces are intact. There are no soft tissue abnormalities. There are moderate hypertrophic changes of the lower lumbar spine. IMPRESSION: Mild osteoarthritis. Reviewed, Interpreted and Dictated by Brenton Rodriguez MD Transcribed by Eber Villagomez Authenticated by Brenton Rodriguez MD on 12/02/2021 10:48:53 AM [facility]
--- NOTE | 2021-12-02 08:51 | XR_ITS ---
FINAL REPORT CLINICAL HISTORY: hip pain FINDINGS: 2 views of the right hip and an AP pelvis were obtained. There is no acute fracture or dislocation. There are mild hypertrophic changes at the acetabular margins. There are no soft tissue abnormalities. There are moderate hypertrophic changes of the lower lumbar spine. IMPRESSION: Mild osteoarthritis. Reviewed, Interpreted and Dictated by Brenton Rodriguez MD Transcribed by Eber Villagomez Authenticated by Brenton Rodriguez MD on 12/02/2021 10:48:[address] [facility]
== END ==
PROVIDERS: PCP Emergency Medicine; Visit Provider Orthopaedic Surgery
DX: M25.551 Pain in right hip (principal); M25.552 Pain in left hip
CPT/HCPCS: 73502

== ENCOUNTER → 2022-05-04 10:02 | Outpatient (CLI) | payer MEDICARE, OTHER, SELFPAY ==
--- NOTE | 2022-05-04 10:06 | XR_ITS ---
FINAL REPORT CLINICAL HISTORY: knee pain..fell yesterday FINDINGS: Left knee Three views were obtained. There is no acute fracture or dislocation. There are minimal changes. There is calcification at the superior pole of the patella, probably due to old avulsion injury or quadriceps tendinitis. No soft tissue abnormality is identified. IMPRESSION: No acute process. Reviewed, Interpreted and Dictated by Eugenia Genao MD Transcribed by Cierra Guzman Authenticated and [facility]
== END ==
PROVIDERS: PCP Nurse Practitioner Family; Visit Provider Orthopaedic Surgery
DX: M25.562 Pain in left knee (principal)
CPT/HCPCS: 73562

== ENCOUNTER 2022-07-09 17:14 | Emergency (ER) | payer MEDICARE, OTHER, SELFPAY ==
[2022-07-09] VITALS (8 sets, daily range): BP systolic 94–124; BP diastolic 49–65; PULSE 76–88; RESP 18–20; TEMP 36.6–36.8; O2SAT 95–100; BMI 27.4
--- NOTE | 2022-07-09 17:26 | XR_ITS ---
PROCEDURE INFORMATION: Exam: XR Right Humerus Exam date and time: 07/09/2022 6:00 PM Age: 76 years old Clinical indication: Injury or trauma; Fall; Fracture, traumatic injury; Closed fracture; Humerus; Right TECHNIQUE: Imaging protocol: Radiologic exam of the Right humerus. Views: 2 or more views. COMPARISON: CR SHOULDCMRT XR shoulder RT min 2V 02/24/2018 2:02 PM FINDINGS: Bones/joints: There is a mildly comminuted displaced fracture involving the proximal shaft of the humerus with 2 cm overriding and lateral displacement of the distal fracture component. There is a separate large avulsion for fragment measuring 9 cm displaced posterolateral to the fracture site. Soft tissues: Normal. IMPRESSION: Acute displaced mildly comminuted fracture right humeral shaft.
--- NOTE | 2022-07-09 17:26 | CT_ITS ---
PROCEDURE INFORMATION: Exam: CT Maxillofacial Without Contrast Exam date and time: 07/09/2022 5:42 PM Age: 76 years old Clinical indication: Injury or trauma; Fall; Blunt trauma (contusions or hematomas); Other: Face TECHNIQUE: Imaging protocol: Computed tomography of the face without contrast. Radiation optimization: All CT scans at this facility use at least one of these dose optimization techniques: automated exposure control; mA and/or kV adjustment per patient size (includes targeted exams where dose is matched to clinical indication); or iterative reconstruction. COMPARISON: CT SINUS WO CON 09/11/2020 2:27 PM FINDINGS: Orbital cavities: Orbits are normal. Globes are unremarkable. Bones/joints: No acute fracture. Paranasal sinuses: Normal. No air-fluid levels. Soft tissues: There is a small amount of air in the soft tissues just below the anterior nasal bone presumed posttraumatic in nature that should be correlated with clinical exam. IMPRESSION: 1. Negative for fracture. 2. Small amount of soft tissue air just below the anterior nasal bone presumed posttraumatic in nature. Please correlate with clinical bone exam.
--- NOTE | 2022-07-09 17:26 | CT_ITS ---
PROCEDURE INFORMATION: Exam: CT Cervical Spine Without Contrast Exam date and time: 07/09/2022 5:45 PM Age: 76 years old Clinical indication: Injury or trauma; Fall; Blunt trauma TECHNIQUE: Imaging protocol: Computed tomography of the cervical spine without contrast. Radiation optimization: All CT scans at this facility use at least one of these dose optimization techniques: automated exposure control; mA and/or kV adjustment per patient size (includes targeted exams where dose is matched to clinical indication); or iterative reconstruction. COMPARISON: MR CERVICAL SPINE WO CON 06/16/2021 1:14 PM FINDINGS: Bones/joints: There is lateral tilt of cervical curvature which may be due to patient positioning or muscle spasm. There is no fracture, subluxation or spondylolisthesis. There are mild degenerative facet joint changes mid cervical spine more pronounced C4-C5 on the left. Lungs: Lung apices are normal. Soft tissues: There is no prevertebral soft tissue swelling. IMPRESSION: No acute bony abnormalities.
--- NOTE | 2022-07-09 17:48 | PC.NURSE ---
pt to radiology
--- NOTE | 2022-07-09 18:08 | HMH.EDGENADL ---
Discharge Plan Disposition Patient Disposition: Home, Self-Care Condition: Fair Prescriptions Prescriptions: No Action omeprazole 20 mg capsule,delayed release(DR/EC) See Rx Instructions .ROUTE .COMPLEX Qty: 90 3RF Dose Instruction: TAKE 1 CAPSULE EVERY DAY FOR ACID/STOMACH Rx Instructions: TAKE 1 CAPSULE EVERY DAY FOR ACID/STOMACH doxycycline monohydrate 100 mg capsule 100 mg PO DAILY glimepiride 2 mg tablet See Rx Instructions .ROUTE .COMPLEX Qty: 90 0RF Dose Instruction: TAKE 1 TABLET EVERY DAY FOR DIABETES Rx Instructions: TAKE 1 TABLET EVERY DAY FOR DIABETES levothyroxine 75 mcg tablet See Rx Instructions .ROUTE .COMPLEX Qty: 90 0RF Dose Instruction: TAKE 1 TABLET EVERY DAY FOR THYROID Rx Instructions: TAKE 1 TABLET EVERY DAY FOR THYROID lisinopril 2.5 mg tablet See Rx Instructions .ROUTE .COMPLEX Qty: 90 0RF Dose Instruction: TAKE 1 TABLET EVERY DAY Rx Instructions: TAKE 1 TABLET EVERY DAY pravastatin 40 mg tablet 40 mg PO HS Qty: 90 3RF venlafaxine 150 mg capsule,extended release 24hr See Rx Instructions .ROUTE .COMPLEX Qty: 90 0RF Dose Instruction: TAKE 1 CAPSULE DAILY Rx Instructions: TAKE 1 CAPSULE DAILY alprazolam 0.25 mg tablet 0.25 mg PO TID 90 Days Qty: 270 0RF bisoprolol fumarate 5 mg tablet See Rx Instructions .ROUTE .COMPLEX Qty: 90 0RF Dose Instruction: TAKE 1 TABLET DAILY FOR HIGH BLOOD PRESSURE Rx Instructions: TAKE 1 TABLET DAILY FOR HIGH BLOOD PRESSURE cholecalciferol (vitamin D3) 25 mcg (1,000 unit) capsule 25 mcg PO DAILY Qty: 90 0RF ergocalciferol (vitamin D2) [Vitamin D2] 1,250 mcg (50,000 unit) capsule See Rx Instructions .ROUTE .COMPLEX Qty: 12 0RF Dose Instruction: TAKE 1 CAPSULE BY MOUTH ONCE WEEKLY Rx Instructions: TAKE 1 CAPSULE BY MOUTH ONCE WEEKLY aspirin 81 mg tablet,delayed release (DR/EC) See Rx Instructions .ROUTE .COMPLEX Qty: 90 0RF Dose Instruction: TAKE 1 TABLET EVERY DAY FOR HEART HEALTH Rx Instructions: TAKE 1 TABLET EVERY DAY FOR HEART HEALTH Referrals Follow up/Referrals: Harris Soliman DO [Staff Physician] - See instructions Clinical Impressions Clinical Impression: Closed right humeral fracture, Contusion of face, Chest injury, Abdominal injury Instructions Patient Instructions: DI for Shoulder Fracture Discharge ED Provider: Jack Carroll Adult HPI <Jack Carroll MD - Last Filed: 07/09/22 19:54> General Chief complaint: Fall Stated complaint: fall Time Seen by Provider: 07/09/22 18:19 Mode of Arrival: EMS Source of Information: Patient Limitations: No Limitations Description of Symptoms (Recalled from ER Triage Doc. by RN): pt to ed c/o fall. pt reports she tripped over the ledge at the [employer] and fell onto her right arm and hit her face. pt denies LOC. pt denies taking blood thinners. pt denies pain other than her face and right arm. History of Present Illness HPI narrative: Patient states that she was at the [employer] looking at [employer] trees when she stumbled on unlevel pavement and fell. She says she had very hard. She has pain primarily in her right upper arm/shoulder. She hit her face and had a nosebleed, but says she does not have pain in her face currently. Denies neck pain. Denies loss of consciousness. She thinks she might of scraped her knees. She denies of any other pain. Related Data Home Medications Medication Instructions Recorded Confirmed doxycycline monohydrate 100 mg 100 mg PO DAILY 12/09/21 06/16/22 capsule Previous Rx's Medication Instructions Recorded omeprazole 20 mg capsule,delayed See Rx Instructions .Route 05/26/21 release .COMPLEX #90 caps bisoprolol fumarate 5 mg tablet See Rx Instructions .Route 11/05/21 .COMPLEX #90 tabs alprazolam 0.25 mg tablet 0.25 mg PO TID 90 days #270 tabs 11/30/21 glimepiride 2 m
--- NOTE | 2022-07-09 18:27 | CT_ITS ---
PROCEDURE INFORMATION: Exam: CT Head Without Contrast Exam date and time: 07/09/2022 8:02 PM Age: 76 years old Clinical indication: Injury or trauma; Fall; Additional info: Fall, hit face TECHNIQUE: Imaging protocol: Computed tomography of the head without contrast. Radiation optimization: All CT scans at this facility use at least one of these dose optimization techniques: automated exposure control; mA and/or kV adjustment per patient size (includes targeted exams where dose is matched to clinical indication); or iterative reconstruction. COMPARISON: MR HEAD/BRAIN WO CON 06/16/2021 1:14 PM FINDINGS: Brain: Mild cerebral volume loss and changes of chronic white matter microvascular disease. No signs of a recent infarction or hemorrhage. No midline shift or mass effect. Cerebral ventricles: No ventriculomegaly. Paranasal sinuses: Visualized sinuses are clear. Mastoid air cells: Mastoid air cells are clear. Bones/joints: Nondisplaced right nasal bone fracture. No other acute fractures. Soft tissues: Mild nasal soft tissue swelling. No foreign bodies. IMPRESSION: 1. Mild cerebral volume loss and chronic white matter changes. 2. No acute intracranial abnormality. 3. Nondisplaced right nasal bone fracture.
--- NOTE | 2022-07-09 18:43 | CT_ITS ---
PROCEDURE INFORMATION: Exam: CT Chest With Contrast; Diagnostic Exam date and time: 07/09/2022 8:06 PM Age: 76 years old Clinical indication: Injury or trauma; Fall; Blunt trauma (contusions or hematomas); Additional info: Fall, pain L chest TECHNIQUE: Imaging protocol: Diagnostic computed tomography of the chest with contrast. Radiation optimization: All CT scans at this facility use at least one of these dose optimization techniques: automated exposure control; mA and/or kV adjustment per patient size (includes targeted exams where dose is matched to clinical indication); or iterative reconstruction. Contrast material: ISOVUE; Contrast volume: 80 ml; Contrast route: IV; COMPARISON: CR XR CHEST AP 07/06/2020 2:56 AM FINDINGS: Lungs: Unremarkable. No consolidation. No masses. Pleural spaces: Unremarkable. No pneumothorax. No pleural effusion. Heart: Unremarkable. No cardiomegaly. No pericardial effusion. Lymph nodes: Unremarkable. No enlarged lymph nodes. Vasculature: Unremarkable. No aortic aneurysm. Bones/joints: There is a displaced comminuted segmental fracture of the right humeral diaphysis. Advanced degenerative spondylosis. Normal alignment. Soft tissues: Unremarkable. IMPRESSION: 1. Comminuted right humeral diaphysis fracture. 2. No acute cardiopulmonary findings
--- NOTE | 2022-07-09 18:43 | CT_ITS ---
PROCEDURE INFORMATION: Exam: CT Abdomen And Pelvis With Contrast Exam date and time: 07/09/2022 8:06 PM Age: 76 years old Clinical indication: Injury or trauma; Fall; Blunt; Luq; Additional info: Fall tender luq TECHNIQUE: Imaging protocol: Computed tomography of the abdomen and pelvis with contrast. Radiation optimization: All CT scans at this facility use at least one of these dose optimization techniques: automated exposure control; mA and/or kV adjustment per patient size (includes targeted exams where dose is matched to clinical indication); or iterative reconstruction. Contrast material: ISOVUE; Contrast volume: 80 ml; Contrast route: IV; COMPARISON: CT ABDOMEN PELVIS W CON 07/06/2020 2:42 AM FINDINGS: Lungs: minimal regions of parenchymal scarring at the lung bases. Liver: Hepatic steatosis. Gallbladder and bile ducts: Cholecystectomy. Pancreas: Normal. No ductal dilation. Spleen: Normal. No splenomegaly. Adrenal glands: Normal. No mass. Kidneys and ureters: Normal. No hydronephrosis. Stomach and bowel: Colonic diverticulosis. No evidence of diverticulitis. Appendix: No evidence of appendicitis. Intraperitoneal space: Unremarkable. No free air. No significant fluid collection. Vasculature: Scattered regions of atherosclerotic vascular calcification within the abdominal aorta and common iliac arteries. Lymph nodes: Unremarkable. No enlarged lymph nodes. Urinary bladder: Unremarkable as visualized. Reproductive: Unremarkable as visualized. Bones/joints: Lumbar spondylosis with multilevel disc degeneration. Findings stable. Soft tissues: Unremarkable. IMPRESSION: 1. No evidence of acute abnormality. 2. Hepatic steatosis. 3. Please see above report for discussion of nonacute findings.
--- NOTE | 2022-07-09 18:43 | XR_ITS ---
PROCEDURE INFORMATION: Exam: XR Pelvis Exam date and time: 07/09/2022 8:22 PM Age: 76 years old Clinical indication: Injury or trauma; Fall; Blunt trauma (contusions or hematomas); Bilateral; Hip TECHNIQUE: Imaging protocol: Radiologic exam of the pelvis. Views: 1 or 2 view. COMPARISON: No relevant prior studies available. FINDINGS: Bones/joints: No acute fracture. Degenerative changes of lower lumbar spine. No dislocation. Soft tissues: Unremarkable. Organs: Contrast within renal collecting system and bladder. IMPRESSION: No fracture. If pain persists, consider MRI to exclude occult fracture/internal derangement.
[2022-07-09 18:54] LABS: Basophils # 0.1 K/mm3 (0-0.2); Basophils % 0.5 % (0.1-2.0); Eosinophils # 0.2 K/mm3 (0.0-0.4); Eosinophils % 1.3 % (0.1-12.0); Hematocrit 36.9 % (37.0-47.0); Hemoglobin 11.8 g/dL (12.2-16.2); Lymphocytes # 1.4 K/mm3 (0.7-4.5); Lymphocytes % 9.2 % (10-50); Mean Corpuscular Hemoglobin 26.3 pg (27.0-31.2); Mean Corpuscular Volume 82.2 fl (81-99); Mean Platelet Volume 8.7 fl (7.4-10.4); Monocytes # 0.6 K/mm3 (0.1-1.0); Monocytes % 4.1 % (1.7-9.3); Neutrophils # 13.1 K/mm3 (1.8-7.8); Platelet Count 291 K/mm3 (142-424); Red Blood Count 4.49 M/mm3 (4.20-5.40); Red Cell Distribution Width 15.7 % (11.5-17.5); White Blood Count 15.4 K/mm3 (4.8-10.8)
[2022-07-09 18:59] LABS: MANUAL DIFFERENTIAL MANUAL DIFFERENTIAL (MANUAL DIFF)
[2022-07-09 19:01] LABS: Chloride 103 mmol/L (98-107); Potassium 3.9 mmoL/L (3.5-5.1); Sodium 139 mmol/L (136-145)
[2022-07-09 19:04] LABS: Alanine Aminotransferase 18 U/L (12-78); Albumin Level 4.1 g/dl (3.5-5.0); Albumin/Globulin Ratio 1.4 (1.1-1.8); Alkaline Phosphatase 128 U/L (38-126); Anion Gap 10.9 mEq/L (5-15); Aspartate Amino Transferase 32 U/L (14-36); Bilirubin,Total 0.2 mg/dl (0.2-1.3); Blood Urea Nitrogen 33 mg/dl (7-17); Calcium 9.4 mg/dl (8.4-10.2); Carbon Dioxide 29 mmol/L (22.0-30.0); Creatinine Clearance Estimated 55 mL/min (50-200); Estimated Glomerular Filt Rate 97 ml/min (>60); GFR (African American) 118 ML/MIN (>60); Globulin 2.9 g/dL (1.3-3.2); Glucose 123 mg/dl (74-100)
[2022-07-09 19:14] LABS: Lymphocytes % 5 % (10-50); Monocytes % 2 % (2-9); Neutrophils % 93 % (42-76); RBC Morphology Normal; Total Cells Counted 100
[2022-07-09 19:15] LABS: Platelet Estimate Normal
--- NOTE | 2022-07-09 19:27 | PC.NURSE ---
Pt assisted to use bedpan. Urine specimen obtained at this time. Pt given pillow and made comfortable. NO other needs voiced a this time.
--- NOTE | 2022-07-09 19:39 | PC.NURSE ---
Pt complaining of some abdominal pain. RN notified. Pt made aware she will be getting a ct scan of abdomen.
--- NOTE | 2022-07-09 22:21 | PC.NURSE ---
Pt assisted to use bedpan. No other needs voiced at this time.
== END 2022-07-09 23:25 | disposition home or self-care (01) ==
PROVIDERS: Emergency Provider Emergency Medicine; PCP Nurse Practitioner Family
DX: S42.301A Unspecified fracture of shaft of humerus, right arm, initial encounter for closed fracture (principal); S00.83XA Contusion of other part of head, initial encounter; S29.9XXA Unspecified injury of thorax, initial encounter; S39.91XA Unspecified injury of abdomen, initial encounter; W18.39XA Other fall on same level, initial encounter; Y92.512 Supermarket, store or market as the place of occurrence of the external cause; Z88.1 Allergy status to other antibiotic agents; Z88.6 Allergy status to analgesic agent; R00.8 Other abnormalities of heart beat; E11.9 Type 2 diabetes mellitus without complications; I10 Essential (primary) hypertension; I25.10 Atherosclerotic heart disease of native coronary artery without angina pectoris; E78.5 Hyperlipidemia, unspecified
CPT/HCPCS: 70450; 70486; 71260; 72125; 72170; 73060; 74177; 80053; 85007; 85025; 96374; 96375; 99285; Q9967

== ENCOUNTER 2022-08-08 12:47 | Emergency (ER) | payer MEDICARE, OTHER, SELFPAY ==
[2022-08-08] VITALS (8 sets, daily range): BP systolic 132–152; BP diastolic 68–85; PULSE 82–89; RESP 16–18; TEMP 36.6; O2SAT 98–100; BMI 27.4
[2022-08-08 12:53] LABS: Coronavirus 19, PCR Not Detected (NotDetected); Influenza A, PCR Not Detected (NotDetected); Influenza B, PCR Not Detected (NotDetected)
[2022-08-08 12:55] LABS: Basophils % 0.1 % (0.1-2.0); Eosinophils # 0.1 K/mm3 (0.0-0.4); Eosinophils % 0.7 % (0.1-12.0); Hematocrit 35.8 % (37.0-47.0); Hemoglobin 11.4 g/dL (12.2-16.2); Lymphocytes # 1.2 K/mm3 (0.7-4.5); Lymphocytes % 11.5 % (10-50); Mean Corpuscular HGB Conc 31.8 g/dL (31.8-35.4); Mean Corpuscular Hemoglobin 25.9 pg (27.0-31.2); Mean Corpuscular Volume 81.4 fl (81-99); Mean Platelet Volume 8.4 fl (7.4-10.4); Monocytes # 0.4 K/mm3 (0.1-1.0); Neutrophils # 8.5 K/mm3 (1.8-7.8); Neutrophils % 83.6 % (37.0-80.0); Platelet Count 375 K/mm3 (142-424); Red Cell Distribution Width 15.5 % (11.5-17.5); White Blood Count 10.2 K/mm3 (4.8-10.8)
[2022-08-08 12:58] LABS: Chloride 102 mmol/L (98-107); Potassium 3.9 mmoL/L (3.5-5.1); Sodium 138 mmol/L (136-145)
[2022-08-08 13:00] LABS: Alanine Aminotransferase 15 U/L (12-78); Aspartate Amino Transferase 25 U/L (14-36); Blood Urea Nitrogen 24 mg/dl (7-17); Creatinine Clearance Estimated 55 mL/min (50-200); Estimated Glomerular Filt Rate 97 ml/min (>60); GFR (African American) 118 ML/MIN (>60)
[2022-08-08 13:01] LABS: Albumin Level 4.3 g/dl (3.5-5.0); Albumin/Globulin Ratio 1.3 (1.1-1.8); Alkaline Phosphatase 114 U/L (38-126); Anion Gap 16.9 mEq/L (5-15); Bilirubin,Total 0.6 mg/dl (0.2-1.3); Calcium 9.3 mg/dl (8.4-10.2); Carbon Dioxide 23 mmol/L (22.0-30.0); Globulin 3.2 g/dL (1.3-3.2); Glucose 149 mg/dl (74-100); Total Protein,Serum 7.5 g/dl (6.3-8.2)
--- NOTE | 2022-08-08 14:13 | PC.NURSE ---
DR. VELAZQUEZ AT BEDSIDE FOR EVALUATION
--- NOTE | 2022-08-08 14:21 | HMH.EDGENADL ---
Discharge Plan Disposition Patient Disposition: Home, Self-Care Condition: Good Prescriptions Prescriptions: New alprazolam [Xanax] 0.25 mg tablet 0.25 mg PO QID Qty: 16 0RF No Action omeprazole 20 mg capsule,delayed release(DR/EC) See Rx Instructions .ROUTE .COMPLEX Qty: 90 3RF Dose Instruction: TAKE 1 CAPSULE EVERY DAY FOR ACID/STOMACH Rx Instructions: TAKE 1 CAPSULE EVERY DAY FOR ACID/STOMACH doxycycline monohydrate 100 mg capsule 100 mg PO DAILY glimepiride 2 mg tablet See Rx Instructions .ROUTE .COMPLEX Qty: 90 0RF Dose Instruction: TAKE 1 TABLET EVERY DAY FOR DIABETES Rx Instructions: TAKE 1 TABLET EVERY DAY FOR DIABETES levothyroxine 75 mcg tablet See Rx Instructions .ROUTE .COMPLEX Qty: 90 0RF Dose Instruction: TAKE 1 TABLET EVERY DAY FOR THYROID Rx Instructions: TAKE 1 TABLET EVERY DAY FOR THYROID lisinopril 2.5 mg tablet See Rx Instructions .ROUTE .COMPLEX Qty: 90 0RF Dose Instruction: TAKE 1 TABLET EVERY DAY Rx Instructions: TAKE 1 TABLET EVERY DAY pravastatin 40 mg tablet 40 mg PO HS Qty: 90 3RF venlafaxine 150 mg capsule,extended release 24hr See Rx Instructions .ROUTE .COMPLEX Qty: 90 0RF Dose Instruction: TAKE 1 CAPSULE DAILY Rx Instructions: TAKE 1 CAPSULE DAILY alprazolam 0.25 mg tablet 0.25 mg PO TID 90 Days Qty: 270 0RF bisoprolol fumarate 5 mg tablet See Rx Instructions .ROUTE .COMPLEX Qty: 90 0RF Dose Instruction: TAKE 1 TABLET DAILY FOR HIGH BLOOD PRESSURE Rx Instructions: TAKE 1 TABLET DAILY FOR HIGH BLOOD PRESSURE cholecalciferol (vitamin D3) 25 mcg (1,000 unit) capsule 25 mcg PO DAILY Qty: 90 0RF ergocalciferol (vitamin D2) [Vitamin D2] 1,250 mcg (50,000 unit) capsule See Rx Instructions .ROUTE .COMPLEX Qty: 12 0RF Dose Instruction: TAKE 1 CAPSULE BY MOUTH ONCE WEEKLY Rx Instructions: TAKE 1 CAPSULE BY MOUTH ONCE WEEKLY aspirin 81 mg tablet,delayed release (DR/EC) See Rx Instructions .ROUTE .COMPLEX Qty: 90 0RF Dose Instruction: TAKE 1 TABLET EVERY DAY FOR HEART HEALTH Rx Instructions: TAKE 1 TABLET EVERY DAY FOR HEART HEALTH Referrals Follow up/Referrals: Provider,Referral, MD [Primary Care Provider] - See instructions Activity Restrictions/Add. Instructions Additional Instructions/Restrictions: Take Xanax as prescribed. Follow up with your primary care provider on Tuesday as scheduled for further prescriptions. Additional instructions for CONTROLLED SUBSTANCES: You have been prescribed a medication that is a controlled substance. Controlled substances include pain medications known as opiates and sedative nerve medications known as benzodiazepines. Tramadol, fioricet, and gabapentin are also controlled substances. Some common opiates include: Codeine (such as Tylenol #3) Hydrocodone (Vicodin, Lortab, Lorcet, [place]) Oxycodone (Percocet, Percodan, Oxycodone, Oxy IR) Some common benzodiazepines include: Diazepam (Valium) Lorazepam (Ativan) Alprazolam (Xanax) Clonazepam (Klonopin) Oxazepam (Serax) All of these controlled substances are highly addictive and frequently abused. Misuse can and frequently does lead to addiction as well as overdose and . Medication should be stored in a locked cabinet or other secure storage unit. Do not store the medication in a motor vehicle. Short term supplies, 3 days or less, are prescribed because of the highly addictive nature of the medication. Any of the controlled substance medication NOT taken should be disposed of properly and NOT SAVED. The recommended method of disposing of unused medications is: Place the medicines in a sealable plastic bag. If the medicine is a solid, crush it or add water to dissolve it. Add something undesirable (cat litter, coffee grounds, etc.) Dispose of sealed bag in household trash Do not flush or pour unuse
--- NOTE | 2022-08-08 14:25 | ECG_ITS ---
APPROVED REPORT Exam: Resting ECG HR:83 bpm ECG Measurements Heart Rate 83 AXES AK 165 P 63 QRSd 84 QRS 45 QT 374 T 56 QTc 414 Conclusion SINUS RHYTHM NORMAL ECG UNCONFIRMED REPORT Electronically signed by : Dejon Hollingsworth MD 08/08/2022 22:20:19
--- NOTE | 2022-08-08 14:28 | PC.NURSE ---
Family at BS
[2022-08-08 15:00] LABS: Troponin I < 0.01 ng/ml (0.00-0.034)
== END 2022-08-08 16:23 | disposition home or self-care (01) ==
PROVIDERS: Emergency Provider Emergency Medicine
DX: R53.1 Weakness (principal); F13.239 Sedative, hypnotic or anxiolytic dependence with withdrawal, unspecified; R11.2 Nausea with vomiting, unspecified; R19.7 Diarrhea, unspecified; F32.A Depression, unspecified; Z86.79 Personal history of other diseases of the circulatory system; Z20.822 Contact with and (suspected) exposure to COVID-19
CPT/HCPCS: 80053; 84443; 84484; 85025; 93005; 96361; 96374; 96375; 99285; C9803; J2405; U0003; U0005

== ENCOUNTER → 2022-11-04 13:30 | Outpatient (CLI) | payer MEDICARE, OTHER, SELFPAY ==
--- NOTE | 2022-11-04 13:39 | CT_ITS ---
FINAL REPORT TECHNIQUE: Thin section axial images were obtained from skull base to vertex without contrast. Coronal reconstruction images were obtained from the axial data. Exam was performed using dose reduction technique. CLINICAL HISTORY: INJURY OF HEAD, fall and hit head on floor x 2 weeks ago COMPARISON: 07/09/2022 FINDINGS: There is no mass effect or midline shift. There is no hydrocephalus. There is no intracranial hemorrhage. The posterior fossa is without acute abnormality. The basilar cisterns are preserved. The soft tissues are without acute abnormality. No acute osseous abnormality is identified. IMPRESSION: No acute intracranial abnormality. Reviewed, Interpreted and Dictated by Carmen Ramirez MD Transcribed by Cierra Guzman Authenticated and . [facility]
== END ==
PROVIDERS: Visit Provider Nurse Practitioner Family
DX: S09.90XA Unspecified injury of head, initial encounter (principal); W19.XXXA Unspecified fall, initial encounter
CPT/HCPCS: 70450

== ENCOUNTER → 2022-11-30 18:04 | Outpatient (CLI) | payer MEDICARE, OTHER, SELFPAY ==
--- NOTE | 2022-11-30 18:16 | XR_ITS ---
PROCEDURE INFORMATION: Exam: XR Right Knee Exam date and time: 11/30/2022 6:17 PM Age: 77 years old Clinical indication: Knee; Right; Patient HX: Weightbearing views, no injury. Pain; Additional info: Knee pain TECHNIQUE: Imaging protocol: Radiologic exam of the right knee. Views: 3 views. COMPARISON: FINDINGS: Bones/joints: Osseous alignment is normal. No acute fracture or joint fluid. There is mild tricompartmental joint space narrowing and osteophyte formation compatible with osteoarthritis. Soft tissues: Normal. IMPRESSION: Mild tricompartmental osteoarthritis
--- NOTE | 2022-11-30 18:16 | XR_ITS ---
PROCEDURE INFORMATION: Exam: XR Left Knee Exam date and time: 11/30/2022 6:17 PM Age: 77 years old Clinical indication: Left; Patient HX: Weight bearing views, knee pain, no injury TECHNIQUE: Imaging protocol: Radiologic exam of the left knee. Views: 3 views. COMPARISON: CR XR KNEE LT 3V 05/04/2022 10:09 AM FINDINGS: Bones/joints: Osseous alignment is normal. No acute fracture or joint fluid. Ununited ossification center or tendinous ossification noted adjacent to the superior pole of the patella and appears stable. There is mild spurring of the tibial spines. No other significant degenerative/arthritic changes. Soft tissues: Normal. IMPRESSION: No acute abnormality. Stable chronic findings as noted.
== END ==
PROVIDERS: PCP Nurse Practitioner Family; Visit Provider Orthopaedic Surgery
DX: M25.562 Pain in left knee (principal); M25.561 Pain in right knee
CPT/HCPCS: 73562

== ENCOUNTER → 2023-02-23 11:07 | Outpatient (POV) | payer MEDICARE, OTHER, SELFPAY ==
--- NOTE | 2023-02-23 11:29 | EXP.PAIN.OV ---
HPI Data of Consult Patient: new to practice Consult date: 02/23/23 Requesting Physician: Betsy Soliman APRN Primary Care Provider: Jojo Wilde Consult Narrative Reason for consult: Bilateral knee pain, leg pain, low back pain History of present illness: Ms. Emery is a 77 year old female who presents today as a new patient. She is a referral from Mervin Soliman's office. Today she rates her pain a 10 out of 10. Patient states her pain is all in her bilateral lower extremities and describes it as an aching sensation that is worse with increased activity. She does state that she did previously think it was related to her bilateral knee pain that she was going to Dr. Soliman for. She states they did do multiple injections to her knees that did help however she continues to have leg pain. She does state that he believes it is related to a low back issue. Patient denies any recent imaging. She does state that the pain does interfere with her ability to perform activities of daily living such as cooking and cleaning. She does state that cold weather typically worsens her leg pain and that often being under a heavy blanket will help. Patient has tried yain-ncx-hxiapog medications such as Tylenol and ibuprofen along with heat and ice and topicals such as Aspercreme and Biofreeze with no additional relief. She denies any previous back surgery or injective history in her back. She has been in to a chiropractor years ago and is currently in physical therapy related to an arm fracture. She does state that she is scheduled to see the Ortho doctor tomorrow. Patient is currently managed with alprazolam 0.25 mg 4 times a day from Jojo Wilde's office. Her Celio is [phone]. Has been reviewed and appropriate. CC: Betsy Soliman APRN [facility] Disclaimer: The information contained in this section may have been updated after the patient was seen, as this information can be updated by other users. Medical History Abnormal stress test Atypical angina Bigeminy Chest pain Depression Dizziness Dyspnea Palpitations PVC (premature ventricular contraction) Trigeminy Family History Other No significant family history Social History Smoking Status: Never smoker second hand exposure: No alcohol intake: never substance use type: denies use current occupational status: retired Travel in the last 8 weeks: None household members: none housing: house number of children: 2 current occupational exposures/hazards: No caffeine: No Review of Systems Review of Systems Review of systems:: pertinent systems reviewed and negative unless documented below Review of systems (narrative): Review of Systems: General: No recent weight changes, no fever, no sleep disturbances Respiratory: No cough, no shortness of air, no recurring pulmonary infections Cardiovascular/peripheral vascular: No chest pain, no palpitations, no edema, no shortness of breath Gastrointestinal: No new onset incontinence, normal bowel movements reported Genitourinary: No new onset incontinence Musculoskeletal: Bilateral leg pain, bilateral knee pain, low back pain Psychiatric: [Normal mood/affect] Neurological: [Denies weakness in extremities], [denies balance issues] Meds Home Medications and Allergies Home Medications Medication Instructions Recorded Confirmed Type glimepiride 2 mg tablet See Rx Instructions .Route 11/30/21 02/03/23 Rx .COMPLEX #90 tabs levothyroxine 75 mcg tablet See Rx Instructions .Route 11/30/21 02/03/23 Rx .COMPLEX #90 tabs pravastatin 40 mg tablet 40 mg PO HS Cholesterol #90 tabs 11/30/21 02/03/23 Rx venlafaxine 150 mg See Rx Instructions .Route 11/30/21 02/03/23 Rx capsule,extended release 24 hr .COMPLEX #90 caps aspirin 81 mg tablet,delayed See Rx Instructions
[2023-02-23 12:45] VITALS: BP 109/69; PULSE 91; RESP 18; O2SAT 98; BMI 26.6
== END | disposition home or self-care (01) ==
PROVIDERS: PCP Nurse Practitioner Family; Visit Provider Nurse Practitioner Family
DX: M17.0 Bilateral primary osteoarthritis of knee; M51.16 Intervertebral disc disorders with radiculopathy, lumbar region
CPT/HCPCS: 99202; G0463

== ENCOUNTER → 2023-06-15 09:53 | Outpatient (CLI) | payer MEDICARE, OTHER, SELFPAY ==
--- NOTE | 2023-06-15 10:17 | CT_ITS ---
FINAL REPORT TECHNIQUE: Thin section axial images are obtained through the abdomen and pelvis after intravenous contrast. Reconstruction images were obtained from the axial data. Exam was performed using dose reduction techniques. CLINICAL HISTORY: LOWER ABDOMINAL PAIN FINDINGS: LUNG BASES: Lung bases are clear. Heart size is normal. There is prominence of seborrheal or breast tissue within the left breast, similar to the prior CT. LIVER: There is mild fatty infiltration of the liver. No focal lesion. GALLBLADDER/BILIARY SYSTEM: The gallbladder has been surgically removed. No biliary dilatation. SPLEEN: Unremarkable. PANCREAS: Unremarkable. ADRENALS: Unremarkable. SYSTEM: No hydronephrosis, renal mass, or renal stone. Unremarkable urinary bladder. Pelvic organs are unremarkable for age. GI TRACT: No small bowel obstruction or dilatation. Normal appendix. Diverticulosis is present, and there may be early changes of diverticulitis as there is slight surrounding increased attenuation in the region of the sigmoid colon. There is no evidence of perforation or abscess. LYMPH NODES/RETROPERITONEUM/MESENTERY: No lymphadenopathy. No abdominal aortic aneurysm. OTHER: No ascites. Remaining soft tissues without acute abnormality. BONES: No acute osseous abnormality. IMPRESSION: Diverticulosis, and possible early sigmoid diverticulitis as there is minimal surrounding increased attenuation. No evidence of perforation or abscess is seen. Reviewed, Interpreted and Dictated by Carmen Ramirez MD Transcribed by Felisha Chun Authenticated and [facility]
[2023-06-15 10:20] LABS: Basophils % 0.4 % (0.1-2.0); Eosinophils % 0.4 % (0.1-12.0); Hematocrit 38.6 % (37.0-47.0); Hemoglobin 12.6 g/dL (12.2-16.2); Lymphocytes # 1.6 K/mm3 (0.7-4.5); Lymphocytes % 19.2 % (10-50); Mean Corpuscular HGB Conc 32.7 g/dL (31.8-35.4); Mean Corpuscular Hemoglobin 26.3 pg (27.0-31.2); Mean Corpuscular Volume 80.7 fl (81-99); Monocytes # 0.5 K/mm3 (0.1-1.0); Monocytes % 5.4 % (1.7-9.3); Neutrophils # 6.2 K/mm3 (1.8-7.8); Neutrophils % 74.5 % (37.0-80.0); Platelet Count 312 K/mm3 (142-424); Red Blood Count 4.78 M/mm3 (4.20-5.40); Red Cell Distribution Width 17.1 % (11.5-17.5); White Blood Count 8.3 K/mm3 (4.8-10.8)
[2023-06-15 10:24] LABS: Chloride 103 mmol/L (98-107)
[2023-06-15 10:25] LABS: Potassium 3.9 mmoL/L (3.5-5.1); Sodium 141 mmol/L (136-145)
[2023-06-15 10:27] LABS: Blood Urea Nitrogen 21 mg/dl (7-17); Estimated Glomerular Filt Rate 81 ml/min (>60); GFR (African American) 98 ML/MIN (>60)
[2023-06-15 10:28] LABS: Alanine Aminotransferase 22 U/L (12-78); Albumin Level 4.7 g/dl (3.5-5.0); Albumin/Globulin Ratio 1.4 (1.1-1.8); Alkaline Phosphatase 76 U/L (38-126); Anion Gap 13.9 mEq/L (5-15); Aspartate Amino Transferase 28 U/L (14-36); Bilirubin,Total 0.3 mg/dl (0.2-1.3); Calcium 9.2 mg/dl (8.4-10.2); Carbon Dioxide 28 mmol/L (22.0-30.0); Globulin 3.4 g/dL (1.3-3.2); Glucose 121 mg/dl (74-100); Total Protein,Serum 8.1 g/dl (6.3-8.2)
== END ==
PROVIDERS: Nurse Practitioner Family; PCP Internal Medicine Adolescent Medicine; Visit Provider Internal Medicine Adolescent Medicine
DX: R10.30 Lower abdominal pain, unspecified (principal)
CPT/HCPCS: 36415; 74177; 80053; 85025; Q9967

== ENCOUNTER → 2023-06-24 12:07 | Outpatient (CLI) | payer MEDICARE, OTHER, SELFPAY ==
[2023-06-24 15:59] LABS: Occult Blood,Stool Negative (Negative)
== END ==
PROVIDERS: PCP Nurse Practitioner Family; Visit Provider Nurse Practitioner Family
DX: R19.5 Other fecal abnormalities (principal)
CPT/HCPCS: 82272; G0328

== ENCOUNTER 2023-06-25 13:50 | Emergency (ER) | payer MEDICARE, OTHER, SELFPAY ==
[2023-06-25] VITALS (8 sets, daily range): BP systolic 115–150; BP diastolic 50–76; PULSE 61–76; RESP 16–17; TEMP 36.6–36.7; O2SAT 98–100; BMI 24.7
--- NOTE | 2023-06-25 14:16 | PC.NURSE ---
Dr. Lozada at bedside
--- NOTE | 2023-06-25 14:26 | HMH.EDGENADL ---
Discharge Plan Disposition Patient Disposition: Home, Self-Care Prescriptions Prescriptions: New ondansetron 4 mg tablet,disintegrating 4 mg PO Q6H PRN (Reason: nausea and vomiting) 5 Days Qty: 20 0RF hydroxyzine pamoate [Vistaril] 25 mg capsule 25 mg PO Q8H PRN (Reason: anxiety) 7 Days Qty: 21 0RF No Action pravastatin 40 mg tablet 40 mg PO HS Qty: 90 3RF metronidazole 500 mg tablet PO TID levofloxacin 500 mg tablet PO DAILY ropinirole 0.25 mg tablet 0.25 mg PO BID Qty: 28 0RF metformin 500 mg tablet 500 mg PO BID Rx Instructions: TAKE 1 TABLET BY MOUTH TWICE DAILY venlafaxine 150 mg capsule,extended release 24hr 75 mg PO DAILY Rx Instructions: TAKE 1 CAPSULE DAILY aspirin 81 mg tablet,delayed release (DR/EC) 81 mg PO DAILY Rx Instructions: TAKE 1 TABLET EVERY DAY FOR HEART HEALTH levothyroxine 75 mcg tablet 75 mcg PO DAILY Rx Instructions: TAKE 1 TABLET EVERY DAY FOR THYROID bisoprolol fumarate 5 mg tablet 5 mg PO DAILY Rx Instructions: TAKE 1 TABLET BY MOUTH AT BEDTIME alprazolam [Xanax] 0.25 mg tablet 0.125 mg PO BID Rx Instructions: recent decrease in dose pantoprazole 40 mg tablet,delayed release (DR/EC) 40 mg PO DAILY Rx Instructions: TAKE 1 TABLET BY MOUTH ONCE DAILY Referrals Follow up/Referrals: Dejon Hollingsworth MD [Primary Care Provider] - See instructions Clinical Impressions Clinical Impression: Vomiting, Nausea, Anxiety, Depression Instructions Patient Instructions: DI for Diarrhea and Traveler's Diarrhea -- Adult, DI for Diarrhea and Traveler's Diarrhea -- Child, DI for Nausea -- Adult, DI for Nausea -- Child Discharge ED Provider: Baudilio Lozada General Adult HPI <Baudilio Lozada MD - Last Filed: 06/25/23 15:01> General Chief complaint: Nausea/Vomiting/Diarrhea Stated complaint: dizzy, upset stomach Time Seen by Provider: 06/25/23 14:00 Mode of Arrival: Ambulatory Source of Information: Patient Limitations: No Limitations Description of Symptoms (Recalled from ER Triage Doc. by RN): Pt reports nausea and diarrhea x2-3 days, feeling shaky, headache, and dizziness. Pt reports was seen at pcp office on 06/23/23 r/t these symptoms, had lab work and medication changes. History of Present Illness HPI narrative: Patient is a 77-year-old female with past medical history of yaq-tyarfmi-[id number] diabetes, anxiety, hypertension who presents emergency department for evaluation of vomiting, headache. Patient states she has a history of chronic diarrhea for multiple months for which she recently provided a stool sample. Over the last several days she has had nonbloody vomiting, intermittent mild frontal headache. No significant dysuria. Due to generally feeling unwell she presents here for continued evaluation. No other acute complaints at this time. Related Data Home Medications Medication Instructions Recorded Confirmed alprazolam 0.25 mg tablet (Xanax) 0.125 mg PO BID Anxiety 02/23/23 06/25/23 aspirin 81 mg tablet,delayed 81 mg PO DAILY Blood Thinner 02/23/23 06/25/23 release bisoprolol fumarate 5 mg tablet 5 mg PO DAILY BLOOD PRESSURE 02/23/23 06/25/23 levothyroxine 75 mcg tablet 75 mcg PO DAILY THYROID 02/23/23 06/25/23 metformin 500 mg tablet 500 mg PO BID Diabetes 02/23/23 06/25/23 pantoprazole 40 mg tablet,delayed 40 mg PO DAILY GERD 02/23/23 06/25/23 release venlafaxine 150 mg 75 mg PO DAILY MOOD 02/23/23 06/25/23 capsule,extended release 24 hr levofloxacin 500 mg tablet mg PO DAILY 06/20/23 06/20/23 metronidazole 500 mg tablet mg PO TID 06/20/23 06/20/23 Previous Rx's Medication Instructions Recorded pravastatin 40 mg tablet 40 mg PO HS Cholesterol #90 tabs 11/30/21 ropinirole 0.25 mg tablet 0.25 mg PO BID #28 tabs 02/23/23 hydroxyzine pamoate 25 mg capsule 25 mg PO Q8H PRN anxiety 7 days 06/25/23 (Vistaril) #21 caps ondansetron 4 mg
[2023-06-25 14:31] LABS: Chloride 104 mmol/L (98-107); Potassium 3.8 mmoL/L (3.5-5.1); Sodium 138 mmol/L (136-145)
[2023-06-25 14:34] LABS: Alanine Aminotransferase 22 U/L (12-78); Albumin Level 4.2 g/dl (3.5-5.0); Albumin/Globulin Ratio 1.4 (1.1-1.8); Alkaline Phosphatase 65 U/L (38-126); Anion Gap 11.8 mEq/L (5-15); Aspartate Amino Transferase 28 U/L (14-36); Bilirubin,Total 0.1 mg/dl (0.2-1.3); Blood Urea Nitrogen 17 mg/dl (7-17); Calcium 8.6 mg/dl (8.4-10.2); Carbon Dioxide 26 mmol/L (22.0-30.0); Creatinine Clearance Estimated 49 mL/min (50-200); Estimated Glomerular Filt Rate 120 ml/min (>60); GFR (African American) 145 ML/MIN (>60); Globulin 2.9 g/dL (1.3-3.2); Glucose 129 mg/dl (74-100); Lipase 62 U/L (23-300); Total Protein,Serum 7.1 g/dl (6.3-8.2)
[2023-06-25 14:38] LABS: Basophils % 0.2 % (0.1-2.0); Eosinophils # 0.1 K/mm3 (0.0-0.4); Eosinophils % 1.6 % (0.1-12.0); Hematocrit 35.1 % (37.0-47.0); Hemoglobin 11.6 g/dL (12.2-16.2); Lymphocytes # 1.3 K/mm3 (0.7-4.5); Lymphocytes % 17.4 % (10-50); Mean Corpuscular HGB Conc 33.1 g/dL (31.8-35.4); Mean Corpuscular Hemoglobin 26.2 pg (27.0-31.2); Mean Corpuscular Volume 79.2 fl (81-99); Mean Platelet Volume 8.7 fl (7.4-10.4); Monocytes # 0.5 K/mm3 (0.1-1.0); Monocytes % 6.5 % (1.7-9.3); Neutrophils # 5.6 K/mm3 (1.8-7.8); Neutrophils % 74.3 % (37.0-80.0); Platelet Count 254 K/mm3 (142-424); Red Blood Count 4.44 M/mm3 (4.20-5.40); Red Cell Distribution Width 16.6 % (11.5-17.5); White Blood Count 7.5 K/mm3 (4.8-10.8)
[2023-06-25 14:46] LABS: Coronavirus 19, PCR Not Detected (NotDetected); Influenza A, PCR Not Detected (NotDetected); Influenza B, PCR Not Detected (NotDetected)
--- NOTE | 2023-06-25 15:25 | PC.NURSE ---
Pt ambulatory to bathroom and able to obtain urine sample. Standby assist only.
[2023-06-25 15:27] LABS: Microscopic, Urine URINE MICROSCOPIC (MICROSCOPIC)
[2023-06-25 15:36] LABS: Appearance,Urine CLEAR (Clear); Bilirubin,Urine Negative (Negative); Blood, Urine Negative (Negative); Color,Urine YELLOW (Yellow); Glucose,Urine (UA) Negative (Negative); Ketones,Urine Negative (Negative); Leukocyte Esterase,Urine Negative (Negative); Nitrate,Urine Negative (Negative); Protein,Urine Negative (Negative); Urobilinogen,Urine 0.2 EU/dl (0.2)
--- NOTE | 2023-06-25 16:30 | PC.NURSE ---
Dr. Burger at BS to update pt/visitor on current POC
== END 2023-06-25 17:03 | disposition home or self-care (01) ==
PROVIDERS: Emergency Provider Emergency Medicine; PCP Internal Medicine Adolescent Medicine
DX: R11.2 Nausea with vomiting, unspecified (principal); R51.9 Headache, unspecified; R42 Dizziness and giddiness; R19.7 Diarrhea, unspecified; R25.1 Tremor, unspecified; I10 Essential (primary) hypertension; E11.9 Type 2 diabetes mellitus without complications; F41.9 Anxiety disorder, unspecified; F32.A Depression, unspecified; Z79.84 Long term (current) use of oral hypoglycemic drugs
CPT/HCPCS: 80053; 81001; 83690; 85025; 87636; 96361; 96374; 96375; 99284; J0131; J2405

== ENCOUNTER 2023-07-07 13:23 | Emergency (ER) | payer MEDICARE, OTHER, SELFPAY ==
[2023-07-07 13:40] VITALS: BP 116/70; PULSE 79; RESP 20; TEMP 36.8; O2SAT 98; BMI 24.7
--- NOTE | 2023-07-07 13:50 | XR_ITS ---
FINAL REPORT CLINICAL HISTORY: FALL, right shoulder pain. Prior right shoulder surgery due to fx. FINDINGS: Right shoulder Three views were obtained. There are sideplate and screws securing healing fracture deformity of the proximal humerus. There is exuberant callus formation. There is moderate narrowing of the glenohumeral joint. There are mild hypertrophic changes at the AC joint. IMPRESSION: Degenerative and postsurgical changes as above. Reviewed, Interpreted and Dictated by Brenton Rodriguez MD Transcribed by Cierra Guzman Authenticated and [facility]
--- NOTE | 2023-07-07 13:50 | XR_ITS ---
FINAL REPORT CLINICAL HISTORY: FALL, right knee pain with small abrasion. FINDINGS: Right knee Three views were obtained. There is no acute fracture or dislocation. There is mild narrowing of the lateral compartment and patellofemoral joint spaces. There are small osteophytes along the undersurface of the patella and the lateral joint margin. No soft tissue abnormality is identified. IMPRESSION: Degenerative changes as above. Reviewed, Interpreted and Dictated by Brenton Rodriguez MD Transcribed by Cierra Guzman Authenticated and [facility]
--- NOTE | 2023-07-07 13:56 | EXP.UTC ---
Discharge Plan Disposition Patient Disposition: Home, Self-Care Condition: Good Prescriptions Prescriptions: New bacitracin 500 unit/gram ointment 1 applic topical TID 10 Days Qty: 30 0RF Rx Instructions: apply to abrasion on knee No Action pravastatin 40 mg tablet 40 mg PO HS Qty: 90 3RF metronidazole 500 mg tablet PO TID levofloxacin 500 mg tablet PO DAILY ropinirole 0.25 mg tablet 0.25 mg PO BID Qty: 28 0RF metformin 500 mg tablet 500 mg PO BID Rx Instructions: TAKE 1 TABLET BY MOUTH TWICE DAILY venlafaxine 150 mg capsule,extended release 24hr 75 mg PO DAILY Rx Instructions: TAKE 1 CAPSULE DAILY aspirin 81 mg tablet,delayed release (DR/EC) 81 mg PO DAILY Rx Instructions: TAKE 1 TABLET EVERY DAY FOR HEART HEALTH levothyroxine 75 mcg tablet 75 mcg PO DAILY Rx Instructions: TAKE 1 TABLET EVERY DAY FOR THYROID bisoprolol fumarate 5 mg tablet 5 mg PO DAILY Rx Instructions: TAKE 1 TABLET BY MOUTH AT BEDTIME alprazolam [Xanax] 0.25 mg tablet 0.125 mg PO BID Rx Instructions: recent decrease in dose pantoprazole 40 mg tablet,delayed release (DR/EC) 40 mg PO DAILY Rx Instructions: TAKE 1 TABLET BY MOUTH ONCE DAILY ondansetron 4 mg tablet,disintegrating 4 mg PO Q6H PRN (Reason: nausea and vomiting) 5 Days Qty: 20 0RF hydroxyzine pamoate [Vistaril] 25 mg capsule 25 mg PO Q8H PRN (Reason: anxiety) 7 Days Qty: 21 0RF Referrals Follow up/Referrals: Dejon Hollingsworth MD [Primary Care Provider] - See instructions Activity Restrictions/Add. Instructions Additional Instructions/Restrictions: Keep wound on knee clean and dry Follow up with your Family Doctor if any worsening of symtpoms Return if needed Straight to ER if any life threatening symptoms Clinical Impressions Clinical Impression: Fall Qualifiers: Encounter type: initial encounter Qualified Code(s): W19.XXXA - Unspecified fall, initial encounter Instructions Patient Instructions: DI for Abrasion Discharge ED Provider: Bozena Stanton [facility] General Stated complaint: Fall 07/07 hit head, head shoulder knee pain Mode of Arrival: Ambulatory Source of Information: Patient Limitations: No Limitations Time Seen by Provider: 07/07/23 13:57 Description of Symptoms (Recalled from Triage Doc. by RN): PATIENT STATES SHE LOST HER BALANCE AND FELL WHILE WALKING TO THE MAILBOX APPROX 1.5 HOURS [employer]. C/O RIGHT SHOULDER AND RIGHT KNEE PAIN. ABRASIONS NOTED TO RIGHT KNEE. PATIENT STATES SHE DID HIT HER HEAD ON THE CONCRETE. DENIES LOC, HEADACHE, OR DIZZINESS HEENT Symptoms (Recalled from RN notes): No Resp Symptoms (Recalled from RN notes): No Skin Symptoms (Recalled from RN notes): No MS Symptoms (Recalled from RN notes): Yes Functional Status (Recalled from RN notes): WNL History of Present Illness Provider Complaint: Patient states that she was walking to the mailbox about and hour and half ago when she lost her balance and fell States that she landed on her knee and shoulder and did hit her head but she is not having any pain in her head and no lumps bumps or open areas on head Denies headache denies LOC states that she broke her right arm in 3 places last year and she was worried she may have broken her shoulder again and having pain, swelling bruising and abrasion on right knee Denies any other symptoms Related Data Home Medications Medication Instructions Recorded Confirmed alprazolam 0.25 mg tablet (Xanax) 0.125 mg PO BID Anxiety 02/23/23 06/25/23 aspirin 81 mg tablet,delayed 81 mg PO DAILY Blood Thinner 02/23/23 06/25/23 release bisoprolol fumarate 5 mg tablet 5 mg PO DAILY BLOOD PRESSURE 02/23/23 06/25/23 levothyroxine 75 mcg tablet 75 mcg PO DAILY THYROID 02/23/23 06/25/23 metformin 500 mg tablet 500 mg PO BID Diabetes 02/23/23 06/25/23 pantoprazole 40 mg tablet,delayed 40 mg PO DAILY GERD 02/23/23 06/25/23 relea
[2023-07-07 16:15] VITALS: BP 116/70; PULSE 79; RESP 20; TEMP 36.8; O2SAT 98
== END 2023-07-07 16:34 | disposition home or self-care (01) ==
PROVIDERS: Emergency Provider Nurse Practitioner; PCP Internal Medicine Adolescent Medicine
DX: M25.511 Pain in right shoulder (principal); M25.561 Pain in right knee; S80.01XA Contusion of right knee, initial encounter; I73.9 Peripheral vascular disease, unspecified; I20.89 Other forms of angina pectoris; W18.30XA Fall on same level, unspecified, initial encounter
CPT/HCPCS: 73030; 73562; 99204; 99212; G0463

== ENCOUNTER 2023-07-11 07:39 | Emergency (ER) | payer MEDICARE, OTHER, SELFPAY ==
[2023-07-11] VITALS (8 sets, daily range): BP systolic 101–150; BP diastolic 52–76; PULSE 68–88; RESP 16–18; TEMP 36.5–36.7; O2SAT 97–100; BMI 24.7
--- NOTE | 2023-07-11 07:50 | PC.NURSE ---
dr lafleur at bedside
--- NOTE | 2023-07-11 07:55 | CT_ITS ---
FINAL REPORT CLINICAL HISTORY: fall, injury, pain COMPARISON: 11/04/2022 FINDINGS: Axial images of the head were obtained without contrast. Coronal reformatted images were also obtained. This study was performed with techniques to keep radiation doses as low as reasonably achievable (ALARA). Individualized dose reduction techniques using automated exposure control or adjustment of mA and/or kV according to the patient''s size were employed. There is generalized age appropriate atrophy. There is no evidence of intracranial hemorrhage or mass. The ventricular size is within normal limits. There is no evidence of shift of the midline structures. No skull abnormality is seen on the bone window images. IMPRESSION: No acute intracranial abnormality. Reviewed, Interpreted and Dictated by Gomez Finley III, MD Transcribed by Lorraine Rodriguez Authenticated and . [facility]
--- NOTE | 2023-07-11 07:55 | CT_ITS ---
FINAL REPORT CLINICAL HISTORY: >65 fall, injury, pain FINDINGS: Axial CT images of the cervical spine were obtained without contrast. Sagittal and coronal reformatted images were also obtained. This study was performed with techniques to keep radiation doses as low as reasonably achievable (ALARA). Individualized dose reduction techniques using automated exposure control or adjustment of mA and/or kV according to the patient''s size were employed. There is no evidence of fracture or dislocation. The bony alignment is normal. There are mild to moderate degenerative changes. No paraspinous soft tissue abnormality is seen. Limited images of the upper thorax are unremarkable. IMPRESSION: No fracture or acute bony abnormality identified. Reviewed, Interpreted and Dictated by Gomez Finley III, MD Transcribed by Lorraine Rodriguez Authenticated and [facility]
--- NOTE | 2023-07-11 07:55 | CT_ITS ---
FINAL REPORT TECHNIQUE: Axial imaging of the lumbar spine was obtained without contrast. Reformatted images were also obtained and reviewed.This study was performed with techniques to keep radiation doses as low as reasonably achievable, (ALARA). Individualized dose reduction techniques using automated exposure control or adjustment of mA and/or kV according to the patient's size were employed. CLINICAL HISTORY: fall, injury, pain FINDINGS: There is a mild L1 superior endplate compression fracture which is new from CT performed 06/15/2023. No other fracture is identified. There are moderate degenerative changes with multilevel disc bulges and osteophytes. There is multilevel neuroforaminal narrowing. The remaining vertebra are normal height. There is no malalignment. Facets are properly aligned. Prevertebral soft tissues unremarkable. IMPRESSION: Mild L1 superior endplate compression fracture, new from prior exam from 06/15/2023. Reviewed, Interpreted and Dictated by Gomez Finley III, MD Transcribed by Lorraine Rodriguez Authenticated and . [facility]
--- NOTE | 2023-07-11 07:55 | CT_ITS ---
FINAL REPORT TECHNIQUE: Pre-and postcontrast images of the abdomen and pelvis were performed by computed tomography. Extensive 3-D reconstruction images were performed. A CTA was performed. This study was performed with techniques to keep radiation doses as low as reasonably achievable (ALARA). Individualized dose reduction techniques using automated exposure control or adjustment of mA and/or kV according to the patient''s size were employed. CLINICAL HISTORY: fall, injury, pain, abd pain rad to back FINDINGS: ABDOMEN AND PELVIS: The lung bases are clear. Patient is status postcholecystectomy. Precontrast images demonstrate no evidence of nephrolithiasis. There is mild bilateral renal scarring. No adrenal masses are identified. The liver, spleen and pancreas are unremarkable. The appendix is normal. There is sigmoid diverticulosis without evidence of diverticulitis. CTA: The abdominal aorta is proper caliber. Mild vascular calcifications are noted. The SMA, celiac axis, and FARHAT are patent. There is no significant stenosis or calcification. The renal arteries are patent bilaterally. IMPRESSION: No evidence of renal vascular hypertension or significant renal artery stenosis. No acute process of the abdomen or pelvis. Reviewed, Interpreted and Dictated by Gomez Finley III, MD Transcribed by Lorraine Rodriguez Authenticated and [facility]
--- NOTE | 2023-07-11 07:55 | CT_ITS ---
FINAL REPORT TECHNIQUE: Then section axial CT images of the chest were obtained with contrast. Three-D reformatted images were also obtained.This study was performed with techniques to keep radiation doses as low as reasonably achievable (ALARA). Individualized dose reduction techniques using automated exposure control or adjustment of mA and/or kV according to the patient''s size were employed. CLINICAL HISTORY: fall, injury, pain FINDINGS: There is no evidence of pulmonary embolism. There is no evidence of thoracic aortic aneurysm or dissection. There is no evidence of mediastinal or hilar mass or adenopathy. There is no evidence of pulmonary mass or suspicious nodule. No localized inflammatory process is seen within the lungs. There is a comminuted fracture of the proximal right humerus. IMPRESSION: No evidence of pulmonary embolism. No mass or localized inflammatory process. Comminuted fracture of the proximal right humerus. Reviewed, Interpreted and Dictated by Gomez Finley III, MD Transcribed by Lorraine Rodriguez Authenticated and [facility]
--- NOTE | 2023-07-11 07:55 | CT_ITS ---
FINAL REPORT TECHNIQUE: Axial CT images of the thoracic spine were obtained without contrast. Sagittal and coronal reformatted images were also obtained. This study was performed with techniques to keep radiation doses as low as reasonably achievable (ALARA). Individualized dose reduction techniques using automated exposure control or adjustment of mA and/or kV according to the patient''s size were employed. CLINICAL HISTORY: fall, injury, pain FINDINGS: There is no evidence of fracture. The vertebral alignment is normal. There are moderate to severe degenerative changes with multilevel osteophytes No paraspinous soft tissue abnormality is identified. IMPRESSION: No fracture or acute bony abnormality. Moderate to severe multilevel degenerative changes. Reviewed, Interpreted and Dictated by Gomez Finley III, MD Transcribed by Lorraine Rodriguez Authenticated and [facility]
--- NOTE | 2023-07-11 08:00 | PC.NURSE ---
pt recieved a warm blanket
[2023-07-11 08:04] LABS: Basophils % 0.2 % (0.1-2.0); Eosinophils # 0.2 K/mm3 (0.0-0.4); Eosinophils % 2.4 % (0.1-12.0); Hemoglobin 11.9 g/dL (12.2-16.2); Lymphocytes # 0.9 K/mm3 (0.7-4.5); Lymphocytes % 11.7 % (10-50); Mean Corpuscular HGB Conc 31.2 g/dL (31.8-35.4); Mean Corpuscular Hemoglobin 25.5 pg (27.0-31.2); Mean Corpuscular Volume 81.5 fl (81-99); Mean Platelet Volume 8.6 fl (7.4-10.4); Monocytes # 0.3 K/mm3 (0.1-1.0); Monocytes % 4.7 % (1.7-9.3); Platelet Count 259 K/mm3 (142-424); Red Blood Count 4.67 M/mm3 (4.20-5.40); Red Cell Distribution Width 15.7 % (11.5-17.5); White Blood Count 7.4 K/mm3 (4.8-10.8)
--- NOTE | 2023-07-11 08:06 | HMH.EDGENADL ---
Discharge Plan Disposition Patient Disposition: Home, Self-Care Condition: Good Prescriptions Prescriptions: New oxycodone 5 mg tablet 5 mg PO Q8H PRN (Reason: pain) Qty: 12 0RF lidocaine [Lidoderm] 5 % adhesive patch,medicated 1 patch topical DAILY Qty: 15 0RF Rx Instructions: leave on most painful area for up to 12 hrs No Action pravastatin 40 mg tablet 40 mg PO HS Qty: 90 3RF metronidazole 500 mg tablet PO TID levofloxacin 500 mg tablet PO DAILY ropinirole 0.25 mg tablet 0.25 mg PO BID Qty: 28 0RF metformin 500 mg tablet 500 mg PO BID Rx Instructions: TAKE 1 TABLET BY MOUTH TWICE DAILY venlafaxine 150 mg capsule,extended release 24hr 75 mg PO DAILY Rx Instructions: TAKE 1 CAPSULE DAILY aspirin 81 mg tablet,delayed release (DR/EC) 81 mg PO DAILY Rx Instructions: TAKE 1 TABLET EVERY DAY FOR HEART HEALTH levothyroxine 75 mcg tablet 75 mcg PO DAILY Rx Instructions: TAKE 1 TABLET EVERY DAY FOR THYROID bisoprolol fumarate 5 mg tablet 5 mg PO DAILY Rx Instructions: TAKE 1 TABLET BY MOUTH AT BEDTIME alprazolam [Xanax] 0.25 mg tablet 0.125 mg PO BID Rx Instructions: recent decrease in dose pantoprazole 40 mg tablet,delayed release (DR/EC) 40 mg PO DAILY Rx Instructions: TAKE 1 TABLET BY MOUTH ONCE DAILY bacitracin 500 unit/gram ointment 1 applic topical TID 10 Days Qty: 30 0RF Rx Instructions: apply to abrasion on knee ondansetron 4 mg tablet,disintegrating 4 mg PO Q6H PRN (Reason: nausea and vomiting) 5 Days Qty: 20 0RF hydroxyzine pamoate [Vistaril] 25 mg capsule 25 mg PO Q8H PRN (Reason: anxiety) 7 Days Qty: 21 0RF Referrals Follow up/Referrals: Harris Soliman DO [Staff Physician] - See instructions Dejon Hollingsworth MD [Primary Care Provider] - See instructions Activity Restrictions/Add. Instructions Additional Instructions/Restrictions: You were evaluated in the emergency department today. You have a broken bone of your right arm and a compression fracture of your L1 vertebrae of your spine. Please forklift picker your prescription for pain medication and take as needed for severe pain. Do not drive or operate heavy machinery while taking this pain medication. It can make you sleepy. Take Tylenol and ibuprofen as well has needed for pain. Follow-up with orthopedics as well as your primary care provider. Return to the emergency department for new or worsening symptoms. Clinical Impressions Clinical Impression: Closed compression fracture of L1 vertebra, Fall, Abdominal pain, Closed fracture of proximal end of right humerus Instructions Patient Instructions: DI for Vertebral Fracture, DI for Acute Abdominal Pain, DI for Arm Pain Discharge ED Provider: Betsy Betts General Adult HPI General Chief complaint: Abdominal Pain Stated complaint: [id number] Pfain in back and stomach Time Seen by Provider: 07/11/23 07:44 Mode of Arrival: Wheelchair Source of Information: Patient Limitations: No Limitations Description of Symptoms (Recalled from ER Triage Doc. by RN): PT REPORTS FALL ON TUESDAY, SINCE HAS HAD STOMACH AND BACK PAIN REPORTS N/V AND BM YESTERDAY History of Present Illness HPI narrative: This patient is a 77-year-old female with a history of type 2 diabetes, GERD, hypertension, hyperlipidemia, CAD, and depression presenting to the emergency department for evaluation with concern for abdominal pain radiating to her back. Patient states that she fell on while walking to her mailbox, and since then she has had sharp pain in her lower abdomen radiating to her back. She has also had nausea and vomiting of nonbloody nonbilious emesis. She notes no changes in her bowel movements, she reports that she chronically has loose stools. No new melena or hematochezia noted. She denies any fevers, chills, dysuria, polyuria, or other concerns. She sta
--- NOTE | 2023-07-11 08:07 | ECG_ITS ---
APPROVED REPORT Exam: Resting ECG HR:81 bpm ECG Measurements Heart Rate 81 AXES MT 165 P 61 QRSd 84 QRS 52 QT 345 T 66 QTc 383 Conclusion SINUS RHYTHM NORMAL ECG UNCONFIRMED REPORT Electronically signed by : Dejon Hollingsworth MD 07/11/2023 17:35:37
[2023-07-11 08:16] LABS: Chloride 101 mmol/L (98-107); Potassium 4.3 mmoL/L (3.5-5.1); Sodium 138 mmol/L (136-145)
[2023-07-11 08:19] LABS: Alanine Aminotransferase 22 U/L (12-78); Albumin Level 4.2 g/dl (3.5-5.0); Albumin/Globulin Ratio 1.2 (1.1-1.8); Alkaline Phosphatase 86 U/L (38-126); Anion Gap 11.3 mEq/L (5-15); Aspartate Amino Transferase 28 U/L (14-36); Bilirubin,Total 0.5 mg/dl (0.2-1.3); Blood Urea Nitrogen 19 mg/dl (7-17); Carbon Dioxide 30 mmol/L (22.0-30.0); Creatinine Clearance Estimated 49 mL/min (50-200); Estimated Glomerular Filt Rate 81 ml/min (>60); GFR (African American) 98 ML/MIN (>60); Globulin 3.5 g/dL (1.3-3.2); Glucose 182 mg/dl (74-100); Lipase 63 U/L (23-300); Total Protein,Serum 7.7 g/dl (6.3-8.2)
[2023-07-11 08:26] LABS: Lactic Acid 2.5 mmol/L (0.7-2.1)
--- NOTE | 2023-07-11 08:38 | PC.NURSE ---
Pt assisted to bathroom with use of wheelchair and 1 person assist. Urine collected. Pt assisted back to bed. Pillow provided. Call light remains within reach.
[2023-07-11 08:42] LABS: Microscopic, Urine URINE MICROSCOPIC (MICROSCOPIC)
[2023-07-11 08:45] LABS: Appearance,Urine CLEAR (Clear); Bilirubin,Urine Negative (Negative); Blood, Urine Negative (Negative); Color,Urine YELLOW (Yellow); Glucose,Urine (UA) Negative (Negative); Ketones,Urine Negative (Negative); Leukocyte Esterase,Urine Negative (Negative); Nitrate,Urine Negative (Negative); Protein,Urine Negative (Negative); Specific Gravity, Urine <= 1.005 (1.005-1.030); Urobilinogen,Urine 0.2 EU/dl (0.2)
--- NOTE | 2023-07-11 09:24 | PC.NURSE ---
PT RETURNED FROM CT
[2023-07-11 09:44] LABS: Bacteria,Urine Trace /lpf; Squamous Epithelial Cell,Urine Occasional #/hpf (0-5)
--- NOTE | 2023-07-11 10:13 | PC.NURSE ---
Rounded on pt. Warm blanket provided. No other needs voiced and call light within reach.
--- NOTE | 2023-07-11 10:54 | XR_ITS ---
FINAL REPORT CLINICAL HISTORY: pain, fx seen on CT FINDINGS: RIGHT HUMERUS 2 views of the right humerus were obtained. There is no acute fracture or dislocation. There are postoperative changes with sideplate and screws of the humerus. There are mild degenerative changes at the shoulder and elbow. Soft tissues are unremarkable. IMPRESSION: No acute bony abnormality. Reviewed, Interpreted and Dictated by Gomez Finley III, MD Transcribed by Lorraine Rodriguez Authenticated and [facility]
--- NOTE | 2023-07-11 10:54 | XR_ITS ---
FINAL REPORT CLINICAL HISTORY: pain, fx seen on CT FINDINGS: RIGHT SHOULDER: 3 views of the right shoulder werer obtained. There is no acute fracture or dislocation. There is a chronic fracture of the proximal right humerus with postoperative changes of ORIF. The joint spaces are intact. There is no soft tissue abnormality. IMPRESSION: No acute fracture Reviewed, Interpreted and Dictated by Gomez Finley III, MD Transcribed by Lorraine Rodriguez Authenticated and [facility]
--- NOTE | 2023-07-11 11:09 | PC.NURSE ---
Pt. assisted to the bathroom.
[2023-07-11 11:58] LABS: Reflex Lactic Add Lactic Reflex
--- NOTE | 2023-07-11 20:54 | PC.NURSE ---
spoke with sister, who stated patient accidentally took 2 doses of medication (oxycodone) and wanted to know if she would be ok or if she needed to be seen. advised her to contact poison control for guidance as patient has no symptoms at this time of over medication.
== END 2023-07-11 13:32 | disposition home or self-care (01) ==
PROVIDERS: Emergency Provider Emergency Medicine; PCP Internal Medicine Adolescent Medicine
DX: S32.010A Wedge compression fracture of first lumbar vertebra, initial encounter for closed fracture (principal); S42.201A Unspecified fracture of upper end of right humerus, initial encounter for closed fracture; R10.30 Lower abdominal pain, unspecified; R11.2 Nausea with vomiting, unspecified; E11.9 Type 2 diabetes mellitus without complications; K21.9 Gastro-esophageal reflux disease without esophagitis; I10 Essential (primary) hypertension; E78.5 Hyperlipidemia, unspecified; I25.10 Atherosclerotic heart disease of native coronary artery without angina pectoris; F32.A Depression, unspecified; W19.XXXA Unspecified fall, initial encounter
CPT/HCPCS: 70450; 71275; 72125; 72128; 72131; 73030; 73060; 74174; 80053; 81001; 83605; 83690; 85025; 93005; 96361; 96374; 99285; J0131; Q9967

== ENCOUNTER → 2023-07-12 07:23 | Outpatient (CLI) | payer MEDICARE, OTHER, SELFPAY ==
--- NOTE | 2023-07-12 07:24 | MR_ITS ---
FINAL REPORT CLINICAL HISTORY: Encephalopathy. MEMORY LOSS COMPARISON: 06/16/2021 FINDINGS: Multiplanar MR imaging of the brain was performed without contrast. There is mild age-appropriate atrophy. There are scattered foci of increased T2 signal in the cerebral white matter that have a nonspecific appearance but likely represent moderate chronic ischemic/gliotic changes, stable when compared with the prior MR images of 2020. There is no evidence of intracranial hemorrhage or mass. No abnormal ventricular dilatation is identified. There is a small left subdural hematoma present, measuring up to 4 mm in thickness. There is minimal 3 to 4 mm left to right subfalcine herniation. No abnormality is seen on the diffusion weighted images. The posterior fossa and brainstem are unremarkable. Normal major vessel vascular flow voids are seen. IMPRESSION: Age-appropriate atrophy and moderate chronic ischemic/gliotic changes. Small left subdural hematoma measuring up to 4 mm in thickness as described, new since the prior MRI of 2020. Reviewed, Interpreted and Dictated by Gomez Finley III, MD Transcribed by Felisha Chun Authenticated and [facility]
== END ==
PROVIDERS: PCP Internal Medicine Adolescent Medicine; Visit Provider Nurse Practitioner Family
DX: G93.40 Encephalopathy, unspecified (principal)
CPT/HCPCS: 70551; 94762; 95819

== ENCOUNTER 2023-07-12 16:27 | Emergency (ER) | payer MEDICARE, OTHER, SELFPAY ==
--- NOTE | 2023-07-12 16:41 | ECG_ITS ---
APPROVED REPORT Exam: Resting ECG HR:89 bpm ECG Measurements Heart Rate 89 AXES SD 169 P 41 QRSd 85 QRS 37 QT 346 T 49 QTc 392 Conclusion SINUS RHYTHM NORMAL ECG UNCONFIRMED REPORT Electronically signed by : Dejon Hollingsworth MD 07/13/2023 13:23:09
[2023-07-12 16:45] VITALS: BP 126/78; PULSE 93; RESP 20; TEMP 36.8; O2SAT 97; BMI 24.7
--- NOTE | 2023-07-12 17:18 | PC.NURSE ---
Called [facility] for consult with neuro
[2023-07-12 17:30] VITALS: BP 116/66; PULSE 79; RESP 14; O2SAT 96
--- NOTE | 2023-07-12 17:33 | HMH.EDGENADL ---
Discharge Plan Disposition Patient Disposition: Home, Self-Care Prescriptions Prescriptions: No Action pravastatin 40 mg tablet 40 mg PO HS Qty: 90 3RF metronidazole 500 mg tablet PO TID levofloxacin 500 mg tablet PO DAILY ropinirole 0.25 mg tablet 0.25 mg PO BID Qty: 28 0RF metformin 500 mg tablet 500 mg PO BID Rx Instructions: TAKE 1 TABLET BY MOUTH TWICE DAILY venlafaxine 150 mg capsule,extended release 24hr 75 mg PO DAILY Rx Instructions: TAKE 1 CAPSULE DAILY aspirin 81 mg tablet,delayed release (DR/EC) 81 mg PO DAILY Rx Instructions: TAKE 1 TABLET EVERY DAY FOR HEART HEALTH levothyroxine 75 mcg tablet 75 mcg PO DAILY Rx Instructions: TAKE 1 TABLET EVERY DAY FOR THYROID bisoprolol fumarate 5 mg tablet 5 mg PO DAILY Rx Instructions: TAKE 1 TABLET BY MOUTH AT BEDTIME alprazolam [Xanax] 0.25 mg tablet 0.125 mg PO BID Rx Instructions: recent decrease in dose pantoprazole 40 mg tablet,delayed release (DR/EC) 40 mg PO DAILY Rx Instructions: TAKE 1 TABLET BY MOUTH ONCE DAILY bacitracin 500 unit/gram ointment 1 applic topical TID 10 Days Qty: 30 0RF Rx Instructions: apply to abrasion on knee ondansetron 4 mg tablet,disintegrating 4 mg PO Q6H PRN (Reason: nausea and vomiting) 5 Days Qty: 20 0RF hydroxyzine pamoate [Vistaril] 25 mg capsule 25 mg PO Q8H PRN (Reason: anxiety) 7 Days Qty: 21 0RF oxycodone 5 mg tablet 5 mg PO Q8H PRN (Reason: pain) Qty: 12 0RF lidocaine [Lidoderm] 5 % adhesive patch,medicated 1 patch topical DAILY Qty: 15 0RF Rx Instructions: leave on most painful area for up to 12 hrs Referrals Follow up/Referrals: Dejon Hollingsworth MD [Primary Care Provider] - See instructions Activity Restrictions/Add. Instructions Additional Instructions/Restrictions: Your images and case were reviewed and discussed with Dr. Briggs [facility] neurosurgery. The [facility] transfer center took down your information and will be calling you for an appointment in 1 week to follow-up with Dr. Briggs most likely for repeat CAT scan. Return with any changes in mental status neurologic complaints or other concerns. As stated above please avoid any anticoagulants or any antiplatelet agents including NSAIDs aspirin etc. You may take Tylenol as needed for your symptoms. Clinical Impressions Clinical Impression: Acute subdural hematoma Discharge ED Provider: Idalia Burger General Adult HPI General Chief complaint: Recheck/Abnormal Lab/Rx Stated complaint: sent by Jane Acosta Time Seen by Provider: 07/12/23 16:43 Mode of Arrival: Wheelchair Source of Information: Patient Limitations: No Limitations Description of Symptoms (Recalled from ER Triage Doc. by RN): pt to ed sent from neurology office. per pt she had an MRI today and was called and told to come to ed for abnormal report. pt states she fell in the driveway on . pt states a chronic headache. pt a&o on arrival to ed. History of Present Illness HPI narrative: Patient is a 77-year-old female who was sent to the emergency department today for concern for subdural hemorrhage. This is her fourth emergency department visit in the last few weeks. She was here few days ago with some discomfort and anxiety and subsequently had a fall on July 07. At that time she hit her head. She had a normal CT scan at that time which showed no intracranial hemorrhage. She subsequently came back to the emergency department with lower back pain and arm pain and was diagnosed with a humeral fracture and a spine fracture. She had a previously scheduled MRI due to memory loss scheduled for this morning which was completed and she was called by her provider and told that there was a subdural hemorrhage and told to come to the emergency department. She has had no injury since the and most likely they
--- NOTE | 2023-07-12 17:39 | PC.NURSE ---
speaking with [facility]
[2023-07-12 18:32] VITALS: BP 118/63; PULSE 84; RESP 18; TEMP 36.8; O2SAT 95
== END 2023-07-12 18:33 | disposition home or self-care (01) ==
PROVIDERS: Emergency Provider Student in an Organized Health Care Education/Training Program; PCP Internal Medicine Adolescent Medicine
DX: S06.5XAA Traumatic subdural hemorrhage with loss of consciousness status unknown, initial encounter (principal); R51.9 Headache, unspecified; W19.XXXA Unspecified fall, initial encounter; I20.9 Angina pectoris, unspecified; I49.3 Ventricular premature depolarization
CPT/HCPCS: 70551; 93005; 94762; 95819; 99285

== ENCOUNTER 2023-08-11 15:14 | Emergency (ER) | payer MEDICARE, OTHER, SELFPAY ==
[2023-08-11 15:16] VITALS: BP 164/84; PULSE 92; RESP 18; TEMP 36.5; O2SAT 95; BMI 24.7
--- NOTE | 2023-08-11 15:25 | ED_ITS ---
Discharge Plan Disposition Patient Disposition: Home, Self-Care Prescriptions Prescriptions: No Action pravastatin 40 mg tablet 40 mg PO HS Qty: 90 3RF metronidazole 500 mg tablet PO TID levofloxacin 500 mg tablet PO DAILY ropinirole 0.25 mg tablet 0.25 mg PO BID Qty: 28 0RF metformin 500 mg tablet 500 mg PO BID Rx Instructions: TAKE 1 TABLET BY MOUTH TWICE DAILY venlafaxine 150 mg capsule,extended release 24hr 75 mg PO DAILY Rx Instructions: TAKE 1 CAPSULE DAILY aspirin 81 mg tablet,delayed release (DR/EC) 81 mg PO DAILY Rx Instructions: TAKE 1 TABLET EVERY DAY FOR HEART HEALTH levothyroxine 75 mcg tablet 75 mcg PO DAILY Rx Instructions: TAKE 1 TABLET EVERY DAY FOR THYROID bisoprolol fumarate 5 mg tablet 5 mg PO DAILY Rx Instructions: TAKE 1 TABLET BY MOUTH AT BEDTIME alprazolam [Xanax] 0.25 mg tablet 0.125 mg PO BID Rx Instructions: recent decrease in dose pantoprazole 40 mg tablet,delayed release (DR/EC) 40 mg PO DAILY Rx Instructions: TAKE 1 TABLET BY MOUTH ONCE DAILY bacitracin 500 unit/gram ointment 1 applic topical TID 10 Days Qty: 30 0RF Rx Instructions: apply to abrasion on knee ondansetron 4 mg tablet,disintegrating 4 mg PO Q6H PRN (Reason: nausea and vomiting) 5 Days Qty: 20 0RF hydroxyzine pamoate [Vistaril] 25 mg capsule 25 mg PO Q8H PRN (Reason: anxiety) 7 Days Qty: 21 0RF oxycodone 5 mg tablet 5 mg PO Q8H PRN (Reason: pain) Qty: 12 0RF lidocaine [Lidoderm] 5 % adhesive patch,medicated 1 patch topical DAILY Qty: 15 0RF Rx Instructions: leave on most painful area for up to 12 hrs Referrals Follow up/Referrals: Dejon Hollingsworth MD [Primary Care Provider] - See instructions Activity Restrictions/Add. Instructions Additional Instructions/Restrictions: Continue to follow-up with Dr. Plaza and our employment case manager regarding care home placement etc. Clinical Impressions Clinical Impression: Decreased oral intake, Depression, Acute dehydration, Unable to care for self, Headache Discharge ED Provider: Idalia Burger General Adult HPI General Chief complaint: Weakness Stated complaint: weak,no appetite Time Seen by Provider: 08/11/23 15:18 History of Present Illness HPI narrative: Is a 77-year-old female whom I have taken care of multiple times in the emergency department presenting today with decreased p.o. intake and feeling dehydrated desiring some IV fluids. I seen her in the past for anxiety and depression and I also saw her recently for a subdural hemorrhage after she fell and had a possible humeral fracture and spine fracture no intervention was done from a subdural hemorrhage standpoint and she has been following up with Dr. Plaza. Her current desire is to be in a care home at some point that she is feeling like she is getting the point where she cannot care for herself. Her friend accompanies her who states she has been very sad and depressed which has not improved lately. Patient's only other acute complaint is a very mild headache she has not taken any Tylenol or ibuprofen today. No focal neurologic deficits fevers neck stiffness etc. Related Data Home Medications Medication Instructions Recorded Confirmed alprazolam 0.25 mg tablet (Xanax) 0.125 mg PO BID Anxiety 02/23/23 07/13/23 aspirin 81 mg tablet,delayed 81 mg PO DAILY Blood Thinner 02/23/23 07/13/23 release bisoprolol fumarate 5 mg tablet 5 mg PO DAILY BLOOD PRESSURE 02/23/23 07/13/23 levothyroxine 75 mcg tablet 75 mcg PO DAILY THYROID 02/23/23 07/13/23 metformin 500 mg tablet 500 mg PO BID Diabetes 02/23/23 07/13/23 pantoprazole 40 mg tablet,delayed 40 mg PO DAILY GERD 02/23/23 07/13/23 release venlafaxine 150 mg 75 mg PO DAILY MOOD 02/23/23 07/13/23 capsule,extended release 24 hr levofloxacin 500 mg tablet mg PO DAILY 06/20/23 07/13/23 metronidazole 500 mg tablet mg PO TID 06/20/23 07/13/23 Previous Rx's Medication Instructions Recorded pravastatin 40 mg tablet 40 mg PO HS Cholesterol #90 tabs 11/30/21 ropinirole 0.25 mg tablet 0.25 mg PO BID #28 tabs 02/23/23 hydroxyzine pamoate 25 mg capsule 25 mg PO Q8H PRN anxiety 7 days 06/25/23 (Vistaril) #21 caps ondansetron 4 mg disintegrating 4 mg PO Q6H PRN nausea and 06/25/23 tablet vomiting 5 days #20 tabs bacitracin 500 unit/gram topical 1 applic topical TID 10 days #30 07/07/23 ointment grams lidocaine 5 % topical patch 1 patch topical DAILY #15 ea 07/11/23 (Lidoderm) oxycodone 5 mg tablet 5 mg PO Q8H PRN pain #12 tabs 07/11/23 Allergies Allergy/AdvReac Type Severity Reaction Status Date / Time hydromorphone [From Dilaudid] Allergy Severe DIAPHORETIC, Verified 07/13/23 11:5 4 NAUSEA, FEELS LIKE SHE COULD PASS OUT. azithromycin AdvReac Intermediate DEPRESSION Verified 07/13/23 11:54 PFSH PFS Disclaimer: The information contained in this section may have been updated after the patient was seen, as this information can be updated by other users. Medical History Abnormal stress test Atypical angina Bigeminy Chest pain Depression Dizziness Dyspnea Palpitations PVC (premature ventricular contraction) Trigeminy Family History Other No significant family history Social History Smoking Status: Never smoker second hand exposure: No alcohol intake: never substance use type: denies use current occupational status: retired Travel in the last 8 weeks: None household members: none housing: house number of children: 2 current occupational exposures/hazards: No caffeine: No ROS Obtained: Yes All systems reviewed & no additional complaints except as documented Physical Exam General General appearance: alert and in no apparent distress Respiratory Respiratory exam: Present normal lung sounds bilaterally; Absent respiratory distress Cardiovascular Cardiovascular exam: Present regular rate; Absent tachycardia Abdominal Exam Abdominal exam: Present soft; Absent distention or tenderness Neurological Exam Neurological exam: Present alert, oriented X3, CN II-XII intact and normal gait; Absent motor sensory deficit Medical Decision Making Celio Inquiry Pt receiving controlled substance: No Vital Signs: 08/11/23 15:16 08/11/23 16:00 08/11/23 16:30 Temperature 97.7 F Temperature Source Oral Pulse Rate 97 H 91 H Pulse Rate [Right] 92 H Respiratory Rate 18 Blood Pressure 144/82 H 149/91 H Blood Pressure [Right Arm] 164/84 H Blood Pressure Mean 102 110 Blood Pressure Mean [Right Arm] 110 Blood Pressure Source [Right Arm] Automatic Cuff 02 Sat by Pulse Oximetry 95 99 100 Oxygen Delivery Method Room Air Lab Data Lab results reviewed: Yes I reviewed the patient's lab results. Lab Results 08/11/23 15:20: WBC 8.1, RBC 5.35, Hgb 13.6, Hct 43.1, MCV 80.5 L, MCH 25.5 L, MCHC 31.7 L, RDW 16.2, Plt Count 288, MPV 7.9, Neut % (Auto) 83.0 H, Lymph % (Auto) 11.8, Powell % (Auto) 4.3, Eos % (Auto) 0.5, Baso % (Auto) 0.3, Neut # (Auto) 6.8, Lymph # (Auto) 1.0, Powell # (Auto) 0.4, Eos # (Auto) 0.0, Baso # (Auto) 0.0, Sodium 136, Potassium 3.9, Chloride 98, Carbon Dioxide 28, Anion Gap 13.9, BUN 12, Creatinine 0.70, Estimated Creat Clear 49, Estimated GFR 81, Est GFR ( Amer) 98, Glucose 194 H, Calcium 9.0, Phosphorus 4.5, Magnesium 1.6, Total Bilirubin 0.4, AST 35, ALT 23, Alkaline Phosphatase 106, Total Protein 7.9, Albumin 4.6, Globulin 3.3 H, Albumin/Globulin Ratio 1.4 08/11/23 15:20 08/11/23 15:20 Orders (Tests/Meds): ED MEDICATIONS Generic Name Dose Route Start Last Admin Trade Name Freq PRN Reason Stop Dose Admin Sodium Chloride 10 ml 08/11/23 15:42 Sodium Chloride 0.9% 10ml Flush Syringe IV 09/10/23 15:41 NEEDED PRN Maintain IV Site Discontinued Medications Generic Name Dose Route Start Last Admin Trade Name Freq PRN Reason Stop Dose Admin Acetaminophen 1,000 mg 08/11/23 15:33 08/11/23 15:41 Acetaminophen 500mg Tab PO 08/11/23 15:34 1,000 mg ONCE ONE Administration Lactated Ringer's 1,000 mls @ 999 mls/hr 08/11/23 15:30 08/11/23 15:41 Lactated Ringer's 1000 Ml Bag IV 08/11/23 16:30 999 mls/hr .Q1H1M JASMIN Administration Ondansetron HCl 4 mg 08/11/23 15:23 08/11/23 15:41 Ondansetron 4mg/2ml Vial IV 08/11/23 15:24 4 mg ONCE ONE Administration ORDERS Category Date Time Status CBC w/Auto Diff [Complete Blood Count Auto Diff] Stat Lab 08/11/23 15:20 Comp leted CMP [Comprehensive Metabolic Panel] Stat Lab 08/11/23 15:20 Completed Magnesium Stat Lab 08/11/23 15:20 Completed Phosphorous Stat Lab 08/11/23 15:20 Completed Medical Decision Narrative: Patient is a 77-year-old female with chronic progressive functional decline and depression who is getting the point where she cannot care for herself at home, she does live at home by herself. I will give her IV fluids and check basic electrolytes and I have a discussion with her about whether or not she wants to be placed or continue to follow-up with Dr. Plaza regarding outpatient management of these issues. Reassessment patient would like to discuss with case management regarding being placed into care home as she feels she cannot care for herself. Lastly we will give her some Tylenol for mild headache that she is experiencing I do not suspect any neurovascular emergency. Reassessment 449 case management saw the patient and they will start initiating discussions with care home placement and will communicate with Dr. Plaza additionally after the patient is discharged from the emergency department. Labs unremarkable patient very well-appearing no acute indication for admitting the patient at the moment and she does not want to be placed today in a care home. She was given IV fluids she asked for something to increase her appetite which I do not have a solution to this. She is not interested in medicinal marijuana, and I told her that her symptoms are most likely secondary to depression which she agrees with. She will continue to follow-up with Dr. Plaza and she was discharged in stable condition. Critical Care Critical Care Time Critical Care Time: No
--- NOTE | 2023-08-11 15:28 | PC.NURSE ---
Dr. Burger at BS for pt eval
--- NOTE | 2023-08-11 15:31 | PC.NURSE ---
LAB advised not enough urine collected for UA
--- NOTE | 2023-08-11 15:32 | PC.NURSE ---
call made to care management to come and speak with pt about placement. pt reports that she is unable to care for herself at home, and is looking for placement in a [facility].
--- NOTE | 2023-08-11 15:39 | PC.NURSE ---
ismael with social work at the bedside
[2023-08-11] MEDS: LACTATED RINGERS 1000ML 1,000 ML 999 ML IV (15:41)
[2023-08-11] MEDS: ONDANSETRON 4MG/2ML VIAL 4 MG IV (15:41)
[2023-08-11] MEDS: ACETAMINOPHEN 500MG TAB 1000 MG PO (15:41)
[2023-08-11 15:44] LABS: Basophils % 0.3 % (0.1-2.0); Eosinophils % 0.5 % (0.1-12.0); Hematocrit 43.1 % (37.0-47.0); Hemoglobin 13.6 g/dL (12.2-16.2); Lymphocytes % 11.8 % (10-50); Mean Corpuscular HGB Conc 31.7 g/dL (31.8-35.4); Mean Corpuscular Hemoglobin 25.5 pg (27.0-31.2); Mean Corpuscular Volume 80.5 fl (81-99); Mean Platelet Volume 7.9 fl (7.4-10.4); Monocytes # 0.4 K/mm3 (0.1-1.0); Monocytes % 4.3 % (1.7-9.3); Neutrophils # 6.8 K/mm3 (1.8-7.8); Platelet Count 288 K/mm3 (142-424); Red Blood Count 5.35 M/mm3 (4.20-5.40); Red Cell Distribution Width 16.2 % (11.5-17.5); White Blood Count 8.1 K/mm3 (4.8-10.8)
[2023-08-11 15:49] LABS: Alanine Aminotransferase 23 U/L (12-78); Albumin Level 4.6 g/dl (3.5-5.0); Albumin/Globulin Ratio 1.4 (1.1-1.8); Alkaline Phosphatase 106 U/L (38-126); Anion Gap 13.9 mEq/L (5-15); Aspartate Amino Transferase 35 U/L (14-36); Bilirubin,Total 0.4 mg/dl (0.2-1.3); Blood Urea Nitrogen 12 mg/dl (7-17); Carbon Dioxide 28 mmol/L (22.0-30.0); Chloride 98 mmol/L (98-107); Creatinine Clearance Estimated 49 mL/min (50-200); Estimated Glomerular Filt Rate 81 ml/min (>60); GFR (African American) 98 ML/MIN (>60); Globulin 3.3 g/dL (1.3-3.2); Glucose 194 mg/dl (74-100); Magnesium 1.6 mg/dl (1.6-2.3); Phosphorous 4.5 mg/dl (2.5-4.5); Potassium 3.9 mmoL/L (3.5-5.1); Sodium 136 mmol/L (136-145); Total Protein,Serum 7.9 g/dl (6.3-8.2)
[2023-08-11 16:00] VITALS: BP 144/82; PULSE 97; O2SAT 99
--- NOTE | 2023-08-11 16:00 | SW/DCPLANNER ---
I spoke w/ this patient and patient's sister in ED regarding patient expressing an interest in LTC facility. Patient voiced that she is interested in [facility] or [facility]: but is not interested in going directly from ED. Patient stated that she would like to return home w/ home health services. Patient will follow up w/ her PCP (Dr Hollingsworth) on Tuesday and he will set up home health services. I have udpated Dr Hollingsworth regarding this patient and her plan. Patient will discharge home from ED today: sister is aware of plan. Patient information has been faxed to [facility] and [facility].
--- NOTE | 2023-08-11 16:09 | PC.NURSE ---
Dr. Burger at to speak with pt/family about POC
[2023-08-11 16:30] VITALS: BP 149/91; PULSE 91; O2SAT 100
[2023-08-11 17:17] VITALS: BP 139/76; PULSE 82; RESP 18; TEMP 36.5; O2SAT 98
== END 2023-08-11 17:18 | disposition home or self-care (01) ==
PROVIDERS: Emergency Provider Student in an Organized Health Care Education/Training Program; PCP Internal Medicine Adolescent Medicine
DX: R51.9 Headache, unspecified (principal); E86.0 Dehydration; R63.0 Anorexia; F32.A Depression, unspecified
CPT/HCPCS: 80053; 83735; 84100; 85025; 96361; 96374; 99285; J2405